=== PATIENT | female | born 1950 | race Caucasian/White ===

== ENCOUNTER → 2019-10-18 | Outpatient (CLI) | payer MEDICARE, OTHER ==
--- NOTE | 2019-10-18 13:43 | RADIOLOGY REPORT (SQ) ---
EXAM DESCRIPTION: MRI HEAD COMBO IMAGES COMPLETED DATE/TIME: 10/18/2019 1:31 pm REASON FOR STUDY: C34.31 MALIGNANT NEOPLASM OF LOWER LOBE, RIGHT BRONCHUS OR LUNG C34.31 MALIGNANT NEOPLASM OF LOWER LOBE, RIGHT BRONCHUS OR L COMPARISON: None. TECHNIQUE: Multiplanar imaging includes noncontrasted T1, T2, FLAIR, and Diffusion with ADC map seq uences. Contrast enhanced T1 images. Images stored on PACS. CONTRAST TYPE AND DOSE: 15 mL Dotarem. RENAL FUNCTION: Not indicated. ACR Type II contrast agent associated with few, if any, unconfounded cases of NSF LIMITATIONS: None. FINDINGS: ANATOMY: No anomalies. Normal vascular flow voids. Pituitary fossa normal. CSF SPACES: Normal size and contour. No hemorrhage. CEREBRUM: A few high-signal intensity lesions scattered throughout the white matter on FLAIR imaging with distribution suggesting chronic microvascular ischemic change. Sulci and gyri normal in size and contour. No evidence of hemorrhage, mass or extraaxial fluid collection. No enhancing lesions. POSTERIOR FOSSA: No signal alteration. No hemorrhage. No edema, masses or mass effect. Internal audit ory canals, cerebello-pontine angles, mastoids normal. DIFFUSION: Negative for acute or subacute infarction. ORBITS: No masses. Globes normal. PARANASAL SINUSES: No fluid levels. Mucosa normal. OTHER: No other significant finding. IMPRESSION: NO ENHANCING LESIONS. MINIMAL MICROVASCULAR ISCHEMIC CHANGE. OTHERWISE NORMAL STUDY. EVIDENCE OF ACUTE STROKE: NO. TECHNICAL DOCUMENTATION: JOB ID: [id number] 2010 [employer]- All Rights Reserved Reading location - IP/workstation name: [email or web address]
== END ==
LOC: RAD 12:12
PROVIDERS: ATTEND Internal Medicine Hematology & Oncology
DX: C34.31 Malignant neoplasm of lower lobe, right bronchus or lung (principal)
CPT/HCPCS: 82565; 70553; A9576

== ENCOUNTER → 2020-01-13 | Outpatient (CLI) | payer MEDICARE, OTHER ==
--- NOTE | 2020-01-13 20:43 | RADIOLOGY REPORT (SQ) ---
EXAM DESCRIPTION: MRI the brain with and without contrast Completed time and date: 01/13/2020 7:49 PM CLINICAL HISTORY: C34.31 MALIGNANT NEOPLASM OF LOWER LOBE, RIGHT BRONCHUS OR LUNG COMPARISON: 10/18/2019 TECHNIQUE: Multiplanar images of the brain were obtained with and without the administration of intravenous contrast FINDINGS: Ventricles and sulci are within normal limits for the patient's age. No evidence of midline shift or mass effect. No evidence of restricted diffusion to suggest acute area of infarct. Symmetric flow voids in the carotid siphons. Occasional foci of abnormal T2 signal consistent with mild microvascular ischemic changes. Other etiology including demyelinating disease not excluded but thought less likely. Symmetric flow voids in the carotid siphons. No evidence of intraparenchymal mass. No area of hemosiderin deposition noted. There is normal enhancement in the venous sinuses. No evidence of abnormal parenchymal enhancement. No evidence of mass. IMPRESSION: NO EVIDENCE OF ACUTE INTRACRANIAL PROCESS NO ABNORMAL ENHANCEMENT
== END ==
LOC: RAD 18:56
PROVIDERS: ATTEND Internal Medicine Hematology & Oncology
DX: C34.31 Malignant neoplasm of lower lobe, right bronchus or lung (principal); R42 Dizziness and giddiness
CPT/HCPCS: 82565; 70553; A9576

== ENCOUNTER → 2020-02-29 | Outpatient (CLI) | payer MEDICARE, OTHER ==
--- NOTE | 2020-02-29 17:46 | RADIOLOGY REPORT (SQ) ---
EXAM DESCRIPTION: VENOUS UNILATERAL UPPER IMAGES COMPLETED DATE/TIME: 02/29/2020 5:23 pm REASON FOR STUDY: RUE SWELLING I82.621 ACUTE EMBOLISM AND THROMBOSIS OF DEEP VEINS OF R UP COMPARISON: None. TECHNIQUE: Dynamic and static currie scale and color images acquired of the right arm venous system. S elected spectral images acquired with additional compression and augmentation maneuvers. The contrala teral subclavian vein and internal jugular vein were also imaged. Images stored on PACS. LIMITATIONS: None. FINDINGS: INTERNAL JUGULAR VEIN: Nonocclusive thrombus. SUBCLAVIAN VEIN: Nonocclusive thrombus. AXILLARY VEIN: Nonocclusive thrombus. BRACHIAL VEIN: Normal compression, augmentation. No visualized echogenic material on currie scale. No d efects on color images. BASILIC VEIN: Normal compression, augmentation. No visualized echogenic material on currie scale. No de fects on color images. CEPHALIC VEIN: Normal compression, augmentation. No visualized echogenic material on currie scale. No d efects on color images. OTHER: No other significant finding. CONTRALATERAL SUBCLAVIAN VEIN AND INTERNAL JUGULAR VEIN: Normal phasicity, compression and augmentation. No visualized echogenic material on currie scale. No de fects on color images. IMPRESSION: Positive acute vein thrombosis. TECHNICAL DOCUMENTATION: JOB ID: [id number] 2010 [employer]- All Rights Reserved Reading location - IP/workstation name: [email or web address]
== END ==
LOC: SP 16:35
PROVIDERS: ATTEND Nurse Practitioner
DX: I82.621 Acute embolism and thrombosis of deep veins of right upper extremity (principal)
CPT/HCPCS: 93971

== ENCOUNTER 2020-06-04 19:22 | Inpatient (IN) | payer MEDICARE, OTHER ==
--- NOTE | 2020-06-04 22:19 | ER Document Report ---
ED Respiratory Problem - General Chief Complaint: Shortness Of Breath Stated Complaint: RESPIRATORY DISTRESS Time Seen by Provider: 06/04/20 22:03 Primary Care Provider: BEULAH ALVAREZ MD [Primary Care Provider] - Follow up as needed Notes: Patient is a 61-year-old female with a history of stage IV lung cancer that com emergency department for chief complaint of worsening shortness of breath for the past 4 days. She states that tonight she got to where she could not catch her breath at all and she felt like she was going to pass out. She denies chest pain, dizziness, fever/chills, sore throat, change in sense of taste or smell but she does report an intermittent cough. She denies nausea or vomiting. She has recently completed chemotherapy and she is supposed to restart this in a few days but she is not currently on it. She states she is on Eliquis because she got a blood clot after they placed her right-sided port, the clot was reportedly in the arm and she had swelling of the arm that has now resolved. She is a former smoker, denies history of asthma or COPD. Remaining medical history reported to be hypertension and hyperlipidemia. She follows with Dr. Alvarez (oncology [facility]). TRAVEL OUTSIDE OF THE [place] IN LAST 30 DAYS: No - Related Data Allergies/Adverse Reactions: codeine Adverse Reaction (Intermediate, Verified 06/04/20 19:53) morphine Adverse Reaction (Intermediate, Verified 06/04/20 19:52) diazepam [From Valium] Adverse Reaction (Mild, Verified 06/04/20 19:53) Penicillins Adverse Reaction (Verified 06/04/20 19:51) Past Medical History - General Information source: Patient - Social History Smoking Status: Former Smoker Frequency of alcohol use: None Drug Abuse: None Lives with: Family Family History: Reviewed & Not Pertinent - Past Medical History Cardiac Medical History: Reports: Hx DVT, Hx Hypercholesterolemia, Hx Hypertension Malignancy Medical History: Reports: Hx Lung Cancer - stage 4 - Immunizations Immunizations up to date: Yes Hx Diphtheria, Pertussis, Tetanus Vaccination: Yes Review of Systems - Review of Systems Constitutional: See HPI EENT: No symptoms reported Cardiovascular: See HPI Respiratory: See HPI Gastrointestinal: No symptoms reported Genitourinary: No symptoms reported Female Genitourinary: No symptoms reported Musculoskeletal: No symptoms reported Skin: No symptoms reported Hematologic/Lymphatic: No symptoms reported Neurological/Psychological: No symptoms reported Physical Exam - Vital signs Vitals: Pulse Ox 95 06/04/20 19:44 - Notes Notes: GENERAL: Patient is in moderate distress although she is still alert, responsive, oriented HEAD: Normocephalic, atraumatic. EYES: Pupils equal, round, and reactive to light. Extraocular movements intact. ENT: Oral mucosa moist, tongue midline. Oropharynx unremarkable. Airway patent. NECK: Full range of motion. Supple. Trachea midline. No lymphadenopathy. LUNGS: Respiratory distress with tachypnea, labored breathing, Rales heard in both mid to lower lung king especially on the right. Occasional congested cough. HEART: Regular rate and rhythm. No murmur ABDOMEN: Soft, non-tender. Non-distended. EXTREMITIES: Moves all 4 extremities spontaneously. No edema, normal radial and dorsalis pedis pulses bilaterally. No cyanosis. BACK: no cervical, thoracic, lumbar midline tenderness. No saddle anesthesia, normal distal neurovascular exam. Moves all extremities in full range of motion. NEUROLOGICAL: Alert and oriented x3. Normal speech. Cranial nerves II through XII grossly intact. Strength 5/5 in all extremities. PSYCH: Slightly agitated SKIN: Warm, dry, normal turgor. No rashes or lesions noted. Course - Re-evaluation Re-evalutation: Patient initially 85% on room air with marked tachypnea, rales on examination especially on the right. Patient placed initially on 4 L nasal cannula and she increased to about 90 to 91% saturation but still having tachypnea at 35 and labored breathing. Patient placed on BiPAP. Shortly after that she had resolution of her respiratory distress, she is not hypoxic on reevaluation. 06/03/2020 CBC nonspecific, chemistry nonspecific, troponin is not elevated, BNP is borderline, venous blood gas unremarkable. EKG without acute findings. Chest x-ray shows bilateral pneumonia worse on the right, could be viral pneumonia, I do suspect COVID-19 given patient's worsening sick symptoms, nonproductive cough, and development of pneumonia over the past 4 days. She will be tested for this. Given dexamethasone, antibiotics. Patient became slightly agitated and was asking to take the BiPAP off, however she agreed to keep this on after she was given 0.5 mg of Ativan for anxiety. No significant change otherwise. I discussed the details with patient before this at length, she states understanding and agreement with admission. Discussed with Dr. Larsen, hospitalist, patient accepted to IMCU full admission. - Vital Signs Vital signs: Temp Pulse Resp BP Pulse Ox 37 H 127/87 H 98 06/04/20 23:30 06/04/20 23:30 06/04/20 23:30 - Laboratory Result Diagrams: 06/04/20 20:55 06/04/20 20:55 Laboratory results interpreted by me: 06/04/20 06/04/20 06/04/20 20:55 20:55 20:55 RDW 17.2 H Plt Count 129 L Seg Neuts % (Manual) 96 H Lymphocytes % (Manual) 2 L Monocytes % (Manual) 2 L Abs Lymphs (Manual) 0.1 L Sodium 134.1 L Est GFR (MDRD) Non-Af 58 L AST 37 H NT-Pro-B Natriuret Pep 477 H Total Protein 5.9 L Albumin 3.3 L - EKG Interpretation by Me Additional EKG results interpreted by me: EKG shows sinus rhythm at a rate of 90, QTc 441, normal axis, no T wave inv ersions or ST segment changes in consecutive leads Discharge - Discharge Clinical Impression: Hypoxia, Cough, Shortness of breath, Respiratory distress, Pneumonia, Person under investigation for COVID-19 Condition: Stable Disposition: ADMITTED INPATIENT Admitting Provider: Suzie (Hospitalist) Unit Admitted: [facility] Referrals: BEULAH ALVAREZ MD [Primary Care Provider] - Follow up as needed
[2020-06-04 22:42] LABS: ALBUMIN 3.3 g/dL (3.5-5.0); ALKALINE PHOSPHATASE 61 U/L (38-126); ANION GAP 6 (5-19); ASPARTATE AMINO TRANSFERASE 37 U/L (14-36); BILIRUBIN,DIRECT 0.1 mg/dL (0.0-0.4); BILIRUBIN,TOTAL 0.5 mg/dL (0.2-1.3); BLOOD UREA NITROGEN 17 mg/dL (7-20); CALCIUM 8.5 mg/dL (8.4-10.2); CARBON DIOXIDE 29 mmol/L (22-30); CHLORIDE 99 mmol/L (98-107); GLUCOSE 98 mg/dL (75-110); POTASSIUM 3.7 mmol/L (3.6-5.0); TOTAL PROTEIN 5.9 g/dL (6.3-8.2)
[2020-06-04 22:45] LABS: HEMATOCRIT 39.2 % (36.0-47.0); HEMOGLOBIN 13.4 g/dL (12.0-15.5); MEAN CORPUSCULAR HEMOGLOBIN 29.9 pg (27.0-33.4); MEAN CORPUSCULAR HGB CONC 34.1 g/dL (32.0-36.0); MEAN CORPUSCULAR VOLUME 88 fl (80-97); PLATELET COUNT 129 10^3/uL (150-450); RED BLOOD COUNT 4.48 10^6/uL (3.72-5.28); RED CELL DISTRIBUTION WIDTH 17.2 % (11.5-14.0); WHITE BLOOD COUNT 5.2 10^3/uL (4.0-10.5)
[2020-06-04 22:54] LABS: NT PRO BNP 477 pg/mL (<125)
[2020-06-04 22:57] LABS: TROPONIN I < 0.012 ng/mL
[2020-06-04 23:02] LABS: VENOUS BLOOD BASE EXCESS 0.1 mmol/L; VENOUS BLOOD HCO3 24.7 mmol/L (20-32); VENOUS BLOOD PCO2 39.8 mmHg (35-63); VENOUS BLOOD PH 7.41 (7.30-7.42)
--- NOTE | 2020-06-04 23:04 | RADIOLOGY REPORT (SQ) ---
CHEST X-RAY 1 VIEW on 06/04/2020 at 10:22 PM CLINICAL INDICATION: Shortness of breath, hypoxia, history of lung cancer COMPARISON: PET/CT from 10/15/2019 FINDINGS: There is elevation of the right hemidiaphragm. Right perihilar opacity may be related to posttreatment related changes, cannot exclude residual or recurrent tumor at this location. Right IJ Port-A-Cath tip is in the SVC. There are bilateral lower lung interstitial opacities worrisome for atypical pneumonia, differential diagnosis would include viral infections. Heart is within normal limits for size. IMPRESSION: Apparent developing bilateral lower lung interstitial opacities worrisome for pneumonia and differential diagnosis would include viral infections.
[2020-06-04 23:17] LABS: ABSOLUTE LYMPHOCYTES# (MANUAL) 0.1 10^3/uL (0.5-4.7); ABSOLUTE MONOCYTES # (MANUAL) 0.1 10^3/uL (0.1-1.4); BASOPHILS % (MANUAL) 0 % (0-2); EOSINOPHILS % (MANUAL) 0 % (0-6); LYMPHOCYTES % (MANUAL) 2 % (13-45); MONOCYTES % (MANUAL) 2 % (3-13); SEGMENTED NEUTROPHILS % (MAN) 96 % (42-78); TOTAL CELLS COUNTED 100
[2020-06-04 23:19] LABS: ANISOCYTOSIS 1+; PLATELET COMMENT ADEQUATE; POLYCHROMASIA SLIGHT
[2020-06-04] MEDS ORDERED: CEFTRIAXONE 1 GM/D5W RTU 1 GM/50 ML RTUPB IV ONE (23:27)
[2020-06-04] MEDS ORDERED: DEXAMETHASONE SOD PHOS INJ 10 MG/1 ML VIAL IV ONE (23:27)
[2020-06-04] MEDS ORDERED: AZITHROMYCIN INJ 500 MG VIAL IV ONE (23:27)
[2020-06-04] MEDS ORDERED: LORAZEPAM INJ 2 MG/1 ML VIAL IV ONE (23:31)
[2020-06-05] MEDS ORDERED: VANCOMYCIN HCL 0 MG in DEXTROSE 5%-WATER 250 ML IV NR (00:30)
--- NOTE | 2020-06-05 00:53 | PDOC H&P ---
History of Present Illness Admission Date/PCP: BEULAH ALVAREZ MD History of Present Illness: RADHA GAUTAM is a 69 year old female with a history 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 She has been on high-dose prednisone and is being weaned at this point, currently down to 40 mg a day. She was hoping to get wean down further off of steroids so she can restart chemo. She is also received 30 radiation treatments. Her oncologist is in [place], a Dr. Alvarez. She does not know the name of the chemo drugs she was on. She said she was in the hospital about a month ago with a pneumonia and has not been on chemo since then. Her was admitted to the hospital on 17 May with a stroke and was sent to [facility]. He has since been in acute rehab. She has been to that hospital every day and to acute rehab to visit him. She says that she has followed all the appropriate precautions. She said that she is always had some trouble breathing but she feels like it got worse the day after [place]. She says that she typically gets a little short of breath when she does something simple such as [place], but it has gotten worse and now she is even short of breath at rest. She does not think she has been running a fever. She always has a little bit of a dry cough and it does not seem to be in much different than usual. She is not on oxygen at home. She came in here hypoxic and short of breath and had to be put on BiPAP. She got a dose of dexamethasone and some Rocephin and Zithromax. She has not been tested for coronavirus outside the hospital but the test was ordered while she was in the ER. Past Medical History Cardiac Medical History: Reports: DVT, Hyperlipidema, Hypertension Malignancy Medical History: Reports: Lung Cancer - stage 4 Social History Lives with: Family Smoking Status: Former Smoker Family History Family History: Reviewed & Not Pertinent, CAD, Hyperlipidemia, Hypertension Parental Family History Reviewed: Yes Children Family History Reviewed: Yes Sibling(s) Family History Reviewed.: Yes Medication/Allergy Allergies/Adverse Reactions: codeine Adverse Reaction (Intermediate, Verified 06/04/20 19:53) morphine Adverse Reaction (Intermediate, Verified 06/04/20 19:52) diazepam [From Valium] Adverse Reaction (Mild, Verified 06/04/20 19:53) Penicillins Adverse Reaction (Verified 06/04/20 19:51) Review of Systems All systems: reviewed and no additional remarkable complaints except as stated - All systems were reviewed and were negative except as noted in the HPI Physical Exam Vital Signs: Temp Pulse Resp BP Pulse Ox 37 H 127/87 H 98 06/04/20 23:30 06/04/20 23:30 06/04/20 23:30 Intake & Output 06/03/20 06/04/20 06/05/20 06:59 06:59 06:59 Weight 72.575 kg General appearance: PRESENT: cooperative, disheveled, mild distress Head exam: PRESENT: atraumatic, normocephalic Eye exam: PRESENT: EOMI, PERRLA. ABSENT: conjunctival injection, nystagmus, scleral icterus Ear exam: PRESENT: normal external ear exam Respiratory exam: PRESENT: crackles - Bibasilar, symmetrical, tachypnea, unlabored. ABSENT: accessory muscle use, chest wall tenderness, prolonged expiratory phas, rhonchi, wheezes Cardiovascular exam: PRESENT: +S1, +S2, tachycardia Pulses: PRESENT: normal carotid pulses Vascular exam: PRESENT: normal capillary refill GI/Abdominal exam: PRESENT: normal bowel sounds, soft. ABSENT: distended, guarding, rebound, tenderness Extremities exam: ABSENT: clubbing, pedal edema Musculoskeletal exam: PRESENT: normal inspection. ABSENT: deformity Neurological exam: PRESENT: alert, awake, oriented to person, oriented to place, oriented to time, oriented to situation, CN II-XII grossly intact. ABSENT: motor sensory deficit Psychiatric exam: PRESENT: flat affect Skin exam: PRESENT: dry, warm Results Laboratory Results: 06/04/20 20:55 06/04/20 20:55 06/04/20 06/04/20 06/04/20 20:55 20:55 22:50 WBC 5.2 RBC 4.48 Hgb 13.4 Hct 39.2 MCV 88 MCH 29.9 MCHC 34.1 RDW 17.2 H Plt Count 129 L Seg Neutrophils % Not Reportable VBG pH 7.41 VBG pCO2 39.8 VBG HCO3 24.7 VBG Base Excess 0.1 Sodium 134.1 L Potassium 3.7 Chloride 99 Carbon Dioxide 29 Anion Gap 6 BUN 17 Creatinine 0.95 Est GFR ( Amer) > 60 Glucose 98 Calcium 8.5 Total Bilirubin 0.5 AST 37 H Alkaline Phosphatase 61 Total Protein 5.9 L Albumin 3.3 L 06/04/20 20:55 Troponin I < 0.012 NT-Pro-B Natriuret Pep 477 H Impressions: Chest X-Ray 06/04/20 22:15 IMPRESSION: Apparent developing bilateral lower lung interstitial opacities worrisome for pneumonia and differential diagnosis would include viral infections. Assessment and Plan - Diagnosis (1) Acute respiratory failure with hypoxia Is this a current diagnosis for this admission?: Yes (2) Person under investigation for COVID-19 Is this a current diagnosis for this admission?: Yes (3) Bilateral pneumonia Qualifiers: Pneumonia type: due to unspecified organism Lung location: lower lobe of lung Qualified Code(s): J18.9 - Pneumonia, unspecified organism Is this a current diagnosis for this admission?: Yes (4) Metastatic lung cancer (metastasis from lung to other site) Qualifiers: Laterality: unspecified laterality Qualified Code(s): C34.90 - Malignant neoplasm of unspecified part of unspecified bronchus or lung Is this a current diagnosis for this admission?: Yes (5) History of DVT (deep vein thrombosis) Is this a current diagnosis for this admission?: Yes - Plan Summary Summary: There are a few different possibilities here. I think the 3 most likely causes for her current situation are either COVID-19, bacterial pneumonia in the setting of an immunosuppressed patient, or a toxic effect from her chemotherapy that surfaced as her steroids were weaned. She got a dose of dexamethasone in the ER, but the the doses that were giving for COVID-19 are equivalent to about 40 mg of prednisone a day, which is what she was on at home. Therefore, I have given her some higher dose Solu-Medrol instead. I am covering her with broad- spectrum antibiotics vancomycin and cefepime. Blood cultures are pending. We are testing her for COVID-19, and if she test positive we will start her on remdesivir. We will continue her Eliquis that she was using for her upper extremity DVT after her port was placed. - Time Time Spent with patient: 35 or more minutes Anticipated Discharge Disposition: Unknown Anticipated Discharge Timeframe: Unknown - Inpatient Certification Based on my medical assessment, after consideration of the patient's comorbidities, presenting symptoms, or acuity I expect that the services needed warrant INPATIENT care.: Yes I certify that my determination is in accordance with my understanding of Medicare's requirements for reasonable and necessary INPATIENT services [42 CFR 412.3e].: Yes Medical Necessity: Significant Comorbidiites Make Outpatient Treatment Too Risky, Need Close Monitoring Due to Risk of Patient Decompensation, Need For Continuous Telemetry Monitoring, Need for Nebulizer Therapy and Monitoring of Response, Need for IV Antibiotics, Risk of Complication if Not Cared For in Hospital
[2020-06-05] MEDS ORDERED: DEXAMETHASONE SOD PHOSPHATE INJ 4 MG/1 ML VIAL ONE (01:09)
[2020-06-05 02:35] LABS: A TYPE INFLUENZA AG NEGATIVE (NEGATIVE); B INFLUENZA AG NEGATIVE (NEGATIVE)
[2020-06-05] MEDS ORDERED: VANCOMYCIN HCL INJ 1000 MG VIAL IV PRN (02:51)
[2020-06-05] MEDS ORDERED: VANCOMYCIN HCL 750 MG in DEXTROSE 5%-WATER 250 ML IV ONE (03:00)
[2020-06-05] MEDS: POTASSI CL 20 MEQ/D5-1/2NS 1L 1,000 ML IV PRN ×2 (04:37→20:06)
[2020-06-05] MEDS: METHYLPREDNISOLONE INJ 40 MG/1 ML SDV IV SCH ×3 (06:23→21:46)
[2020-06-05 09:20] LABS: ALKALINE PHOSPHATASE 50 U/L (38-126); ANION GAP 5 (5-19); ASPARTATE AMINO TRANSFERASE 36 U/L (14-36); BILIRUBIN,DIRECT 0.2 mg/dL (0.0-0.4); BILIRUBIN,TOTAL 0.5 mg/dL (0.2-1.3); BLOOD UREA NITROGEN 18 mg/dL (7-20); CARBON DIOXIDE 27 mmol/L (22-30); CHLORIDE 100 mmol/L (98-107); GLUCOSE 146 mg/dL (75-110); POTASSIUM 4.3 mmol/L (3.6-5.0); TOTAL PROTEIN 5.3 g/dL (6.3-8.2)
[2020-06-05] MEDS: APIXABAN 5 MG TABLET PO SCH ×2 (09:40→17:34)
--- NOTE | 2020-06-05 09:59 | EKG REPORT ---
SEVERITY:- ABNORMAL ECG - SINUS RHYTHM PROBABLE LEFT ATRIAL ABNORMALITY PROBABLE LEFT VENTRICULAR HYPERTROPHY : Confirmed by: Tahir Escobar MD 05-Jun-2020 09:59:08
[2020-06-05] MEDS ORDERED: CEFEPIME 2 GM/D5W RTU 2 GM/50 ML RTUPB IV SCH (10:00)
[2020-06-05] MEDS ORDERED: ALBUTEROL SULFATE HFA (90 MCG/PUFF) 8 GM MDI (1 MDI/ER DISP) IH PRN (16:52)
[2020-06-05] MEDS ORDERED: ALBUTEROL SULFATE HFA (90 MCG/PUFF) 8 GM MDI IH PRN (17:10)
[2020-06-05] MEDS: VANCOMYCIN HCL 1,250 MG in DEXTROSE 5%-WATER 250 ML IV SCH (17:34)
[2020-06-05] MEDS: DOCUSATE SODIUM 100 MG CAPSULE PO SCH (17:34)
[2020-06-05] MEDS: CEFEPIME HCL 2 GM in DEXTROSE 5%-WATER 50 ML IV SCH (21:46)
[2020-06-06] MEDS: METHYLPREDNISOLONE INJ 40 MG/1 ML SDV IV SCH (05:26)
[2020-06-06 06:57] LABS: HEMATOCRIT 36.5 % (36.0-47.0); HEMOGLOBIN 12.5 g/dL (12.0-15.5); MEAN CORPUSCULAR HEMOGLOBIN 29.9 pg (27.0-33.4); MEAN CORPUSCULAR HGB CONC 34.2 g/dL (32.0-36.0); MEAN CORPUSCULAR VOLUME 87 fl (80-97); PLATELET COUNT 126 10^3/uL (150-450); RED BLOOD COUNT 4.19 10^6/uL (3.72-5.28); RED CELL DISTRIBUTION WIDTH 17.8 % (11.5-14.0); WHITE BLOOD COUNT 8.6 10^3/uL (4.0-10.5)
[2020-06-06 07:11] LABS: ALBUMIN 3.1 g/dL (3.5-5.0); ALKALINE PHOSPHATASE 53 U/L (38-126); ANION GAP 7 (5-19); ASPARTATE AMINO TRANSFERASE 32 U/L (14-36); BILIRUBIN,DIRECT 0.2 mg/dL (0.0-0.4); BILIRUBIN,TOTAL 0.6 mg/dL (0.2-1.3); BLOOD UREA NITROGEN 16 mg/dL (7-20); CALCIUM 8.4 mg/dL (8.4-10.2); CARBON DIOXIDE 26 mmol/L (22-30); CHLORIDE 103 mmol/L (98-107); GLUCOSE 141 mg/dL (75-110); POTASSIUM 4.5 mmol/L (3.6-5.0); TOTAL PROTEIN 5.4 g/dL (6.3-8.2)
[2020-06-06 07:55] LABS: ABSOLUTE LYMPHOCYTES# (MANUAL) 0.2 10^3/uL (0.5-4.7); ABSOLUTE MONOCYTES # (MANUAL) 0.1 10^3/uL (0.1-1.4); ANISOCYTOSIS 1+; BAND NEUTROPHILS % (MANUAL) 2 % (3-5); BASOPHILS % (MANUAL) 0 % (0-2); EOSINOPHILS % (MANUAL) 0 % (0-6); LYMPHOCYTES % (MANUAL) 2 % (13-45); MONOCYTES % (MANUAL) 1 % (3-13); OVALOCYTES 1+; PLATELET COMMENT DECREASED; POIKILOCYTOSIS 1+; SEGMENTED NEUTROPHILS % (MAN) 95 % (42-78); TOTAL CELLS COUNTED 100
[2020-06-06 07:56] LABS: TEAR DROP CELLS 1+
[2020-06-06] MEDS: AMLODIPINE BESYLATE 5 MG TABLET PO SCH (10:48)
[2020-06-06] MEDS: CEFEPIME HCL 2 GM in DEXTROSE 5%-WATER 50 ML IV SCH ×2 (10:48→21:53)
[2020-06-06] MEDS: ESCITALOPRAM OXALATE 10 MG TABLET PO SCH (10:48)
[2020-06-06] MEDS: DEXAMETHASONE SOD PHOSPHATE INJ 4 MG/1 ML VIAL IV SCH ×2 (10:48→21:53)
[2020-06-06] MEDS: APIXABAN 5 MG TABLET PO SCH ×2 (10:48→17:31)
[2020-06-06] MEDS: DOCUSATE SODIUM 100 MG CAPSULE PO SCH ×2 (10:48→17:31)
[2020-06-06] MEDS: ZINC SULFATE 220 MG CAPSULE PO SCH (10:48)
[2020-06-06] MEDS: ASCORBIC ACID 500 MG TABLET PO SCH ×2 (10:48→17:31)
[2020-06-06] MEDS: CHOLECALCIFEROL (D3) 1,000 UNIT (25 MCG) TABLET PO SCH (10:48)
[2020-06-06] MEDS ORDERED: REMDESIVIR 200 MG in NORMAL SALINE 250 ML IV ONE (12:00)
--- NOTE | 2020-06-06 14:39 | PDOC PROGRESS REPORT ---
Subjective Date:: 06/06/20 Subjective:: Patient having some shortness of breath today. Was requesting a bedside commode to help her ambulate any distances to void. I did discuss her situation with her that she has tested positive for coronavirus infection. She will inform her family members to get tested. Reason For Visit: ACUTE RESPIRATORY FAILURE BILATERAL PNUEMONIA,PUI Physical Exam Vital Signs: Temp Pulse Resp BP Pulse Ox 97.6 F 83 26 H 125/63 95 06/06/20 12:00 06/06/20 12:00 06/06/20 12:00 06/06/20 12:00 06/06/20 12:00 Intake & Output 06/05/20 06/06/20 06/07/20 06:59 06:59 06:59 Intake Total 300 1394 250 Balance 300 1394 250 Weight 72.5 kg 72.5 kg General appearance: PRESENT: cooperative, hard of hearing, mild distress. ABSENT: disheveled, thin Neck exam: ABSENT: JVD Respiratory exam: PRESENT: crackles - bilateral, symmetrical, tachypnea, unlabored. ABSENT: accessory muscle use, retraction, wheezes Cardiovascular exam: PRESENT: RRR, +S1, +S2. ABSENT: tachycardia GI/Abdominal exam: PRESENT: soft. ABSENT: rebound, rigid, tenderness Neurological exam: PRESENT: alert, awake, oriented to person, oriented to place, oriented to time, oriented to situation Results Laboratory Results: 06/06/20 05:52 06/06/20 05:52 06/06/20 06/06/20 06/06/20 05:52 05:52 11:39 WBC 8.6 RBC 4.19 Hgb 12.5 Hct 36.5 MCV 87 MCH 29.9 MCHC 34.2 RDW 17.8 H Plt Count 126 L Seg Neutrophils % Not Reportable Sodium 136.2 L Potassium 4.5 Chloride 103 Carbon Dioxide 26 Anion Gap 7 BUN 16 Creatinine 0.88 Est GFR ( Amer) > 60 Glucose 141 H Calcium 8.4 Total Bilirubin 0.6 AST 32 Alkaline Phosphatase 53 Total Protein 5.4 L Albumin 3.1 L Blood Type A NEGATIVE Antibody Screen NEGATIVE 06/04/20 20:55 Troponin I < 0.012 NT-Pro-B Natriuret Pep 477 H Impressions: Chest X-Ray 06/04/20 22:15 IMPRESSION: Apparent developing bilateral lower lung interstitial opacities worrisome for pneumonia and differential diagnosis would include viral infections. Assessment and Plan - Diagnosis (1) Pneumonia due to COVID-19 virus Is this a current diagnosis for this admission?: Yes Plan: Unfortunately patient has tested positive for coronavirus. She will be initiated on remdesivir. Plasma will be given. Dexamethasone We will continue broad-spectrum IV antibiotics for today but will likely discontinue tomorrow. Unfortunately, patient's stage IV metastatic lung cancer and elderly age are poor prognostic indicators for patient's outcome. Discussed with patient's sister per patient's request (2) Acute respiratory failure with hypoxia Is this a current diagnosis for this admission?: Yes Plan: Due to COVID-19. Quite hypoxic. Tried her on Oxymizer but could not maintain her sats so we will try her on a high flow nasal cannula. (3) Stage 4 lung cancer Qualifiers: Laterality: unspecified laterality Qualified Code(s): C34.90 - Malignant neoplasm of unspecified part of unspecified bronchus or lung Is this a current diagnosis for this admission?: Yes Plan: Metastatic lung cancer with metastasis to liver and bone. Follows with oncologist in [place] Dr. Viera. Last chemo was 3 weeks prior to admission. Continue pain regimen for treatment of cancer related pain Bowel regimen (4) History of DVT (deep vein thrombosis) Is this a current diagnosis for this admission?: Yes Plan: Upper extremity DVT due to Port-A-Cath. Continue Eliquis. (5) Thrombocytopenia Is this a current diagnosis for this admission?: Yes Plan: Seems to be stable. Etiology and chronicity unknown. I wonder if it is due to her liver metastasis. Check PTT and INR - Time Time Spent with patient: 25-34 minutes Anticipated Discharge Disposition: Home, Self Care Anticipated Discharge Timeframe: unknown
[2020-06-06] MEDS: ACETAMINOPHEN 325 MG TABLET PO PRN (19:47)
[2020-06-06] MEDS: VANCOMYCIN HCL 1,250 MG in DEXTROSE 5%-WATER 250 ML IV SCH (20:39)
[2020-06-06 21:48] LABS: HEMATOCRIT 33.2 % (36.0-47.0); HEMOGLOBIN 11.5 g/dL (12.0-15.5); MEAN CORPUSCULAR HEMOGLOBIN 29.8 pg (27.0-33.4); MEAN CORPUSCULAR HGB CONC 34.5 g/dL (32.0-36.0); MEAN CORPUSCULAR VOLUME 87 fl (80-97); PLATELET COUNT 113 10^3/uL (150-450); RED BLOOD COUNT 3.84 10^6/uL (3.72-5.28); RED CELL DISTRIBUTION WIDTH 17.3 % (11.5-14.0); WHITE BLOOD COUNT 8.3 10^3/uL (4.0-10.5)
[2020-06-06] MEDS: ONDANSETRON HCL INJ/PF 4 MG/2 ML SDV IV PRN (22:10)
[2020-06-07 06:12] LABS: INTERNATIONAL RATION (INR) 1.14; PROTHROMBIN TIME 14.8 SEC (11.4-15.4)
[2020-06-07 06:13] LABS: PARTIAL THROMBOPLASTIN TIME 27.8 SEC (23.5-35.8)
[2020-06-07 06:30] LABS: HEMATOCRIT 36.6 % (36.0-47.0); HEMOGLOBIN 12.6 g/dL (12.0-15.5); MEAN CORPUSCULAR HEMOGLOBIN 30.1 pg (27.0-33.4); MEAN CORPUSCULAR HGB CONC 34.4 g/dL (32.0-36.0); MEAN CORPUSCULAR VOLUME 87 fl (80-97); PLATELET COUNT 115 10^3/uL (150-450); RED BLOOD COUNT 4.19 10^6/uL (3.72-5.28); RED CELL DISTRIBUTION WIDTH 17.3 % (11.5-14.0); WHITE BLOOD COUNT 7.3 10^3/uL (4.0-10.5)
[2020-06-07 06:33] LABS: ALBUMIN 3.3 g/dL (3.5-5.0); ALKALINE PHOSPHATASE 63 U/L (38-126); ANION GAP 9 (5-19); ASPARTATE AMINO TRANSFERASE 37 U/L (14-36); BILIRUBIN,DIRECT 0.3 mg/dL (0.0-0.4); BILIRUBIN,TOTAL 0.7 mg/dL (0.2-1.3); BLOOD UREA NITROGEN 19 mg/dL (7-20); CALCIUM 8.6 mg/dL (8.4-10.2); CARBON DIOXIDE 26 mmol/L (22-30); CHLORIDE 101 mmol/L (98-107); GLUCOSE 125 mg/dL (75-110); POTASSIUM 4.3 mmol/L (3.6-5.0); TOTAL PROTEIN 5.7 g/dL (6.3-8.2)
[2020-06-07 07:12] LABS: ABSOLUTE LYMPHOCYTES# (MANUAL) 0.2 10^3/uL (0.5-4.7); ABSOLUTE MONOCYTES # (MANUAL) 0.2 10^3/uL (0.1-1.4); BAND NEUTROPHILS % (MANUAL) 1 % (3-5); BASOPHILS % (MANUAL) 0 % (0-2); EOSINOPHILS % (MANUAL) 0 % (0-6); LYMPHOCYTES % (MANUAL) 2 % (13-45); MONOCYTES % (MANUAL) 3 % (3-13); SEGMENTED NEUTROPHILS % (MAN) 93 % (42-78); TOTAL CELLS COUNTED 100
[2020-06-07 07:14] LABS: ANISOCYTOSIS 1+; OVALOCYTES SLIGHT; PLATELET COMMENT DECREASED; POIKILOCYTOSIS SLIGHT; TEAR DROP CELLS SLIGHT; TOXIC GRANULATION 1+
[2020-06-07] MEDS: CEFEPIME HCL 2 GM in DEXTROSE 5%-WATER 50 ML IV SCH ×2 (10:25→21:00)
[2020-06-07] MEDS: AMLODIPINE BESYLATE 5 MG TABLET PO SCH (10:27)
[2020-06-07] MEDS: ZINC SULFATE 220 MG CAPSULE PO SCH (10:27)
[2020-06-07] MEDS: APIXABAN 5 MG TABLET PO SCH ×2 (10:27→18:17)
[2020-06-07] MEDS: ASCORBIC ACID 500 MG TABLET PO SCH ×2 (10:28→18:17)
[2020-06-07] MEDS: ESCITALOPRAM OXALATE 10 MG TABLET PO SCH (10:28)
[2020-06-07] MEDS: CHOLECALCIFEROL (D3) 1,000 UNIT (25 MCG) TABLET PO SCH (10:28)
[2020-06-07] MEDS: DOCUSATE SODIUM 100 MG CAPSULE PO SCH ×3 (10:28→18:17)
[2020-06-07] MEDS: DEXAMETHASONE SOD PHOSPHATE INJ 4 MG/1 ML VIAL IV SCH ×2 (10:28→21:00)
[2020-06-07] MEDS: REMDESIVIR 100 MG in NORMAL SALINE 250 ML IV SCH (11:15)
--- NOTE | 2020-06-07 15:09 | PDOC PROGRESS REPORT ---
Subjective Date:: 06/07/20 Subjective:: Patient reports feeling better. She is breathing comfortably. She states she i s less dyspneic when she ambulates to the bedside commode. She is on high flow nasal cannula at this point. Denies any pain during encounter this morning. Reason For Visit: ACUTE RESPIRATORY FAILURE BILATERAL PNUEMONIA,PUI Physical Exam Vital Signs: Temp Pulse Resp BP Pulse Ox 98.3 F 101 H 21 H 156/74 H 96 06/07/20 11:14 06/07/20 11:14 06/07/20 12:00 06/07/20 11:14 06/07/20 12:00 Intake & Output 06/06/20 06/07/20 06/08/20 06:59 06:59 06:59 Intake Total 1394 1998 250 Balance 1394 1998 250 Weight 72.5 kg 72.9 kg General appearance: PRESENT: no acute distress, cooperative Neck exam: ABSENT: JVD Respiratory exam: PRESENT: crackles, symmetrical, unlabored. ABSENT: accessory muscle use, retraction, tachypnea, wheezes Cardiovascular exam: PRESENT: RRR, +S1, +S2. ABSENT: tachycardia GI/Abdominal exam: PRESENT: soft. ABSENT: rebound, rigid, tenderness Neurological exam: PRESENT: alert, awake, oriented to person, oriented to place, oriented to time, oriented to situation Psychiatric exam: ABSENT: agitated, anxious Results Laboratory Results: 06/07/20 05:16 06/07/20 05:16 06/06/20 06/06/20 06/07/20 11:39 21:23 05:16 WBC 8.3 7.3 RBC 3.84 4.19 Hgb 11.5 L 12.6 Hct 33.2 L 36.6 MCV 87 87 MCH 29.8 30.1 MCHC 34.5 34.4 RDW 17.3 H 17.3 H Plt Count 113 L 115 L Seg Neutrophils % Not Reportable Sodium Potassium Chloride Carbon Dioxide Anion Gap BUN Creatinine Est GFR ( Amer) Glucose Calcium Total Bilirubin AST Alkaline Phosphatase Total Protein Albumin Blood Type A NEGATIVE Antibody Screen NEGATIVE 06/07/20 05:16 WBC RBC Hgb Hct MCV MCH MCHC RDW Plt Count Seg Neutrophils % Sodium 136.2 L Potassium 4.3 Chloride 101 Carbon Dioxide 26 Anion Gap 9 BUN 19 Creatinine 0.81 Est GFR ( Amer) > 60 Glucose 125 H Calcium 8.6 Total Bilirubin 0.7 AST 37 H Alkaline Phosphatase 63 Total Protein 5.7 L Albumin 3.3 L Blood Type Antibody Screen 06/04/20 20:55 Troponin I < 0.012 NT-Pro-B Natriuret Pep 477 H Impressions: Chest X-Ray 06/04/20 22:15 IMPRESSION: Apparent developing bilateral lower lung interstitial opacities worrisome for pneumonia and differential diagnosis would include viral infections. Assessment and Plan - Diagnosis (1) Pneumonia due to COVID-19 virus Is this a current diagnosis for this admission?: Yes Plan: Remdesivir day 2 s/p covalesent plasma Dexamethasone day 3 We will continue broad-spectrum IV antibiotics for 1 or 2 more days just in case of any underlying comorbid bacterial pneumonia. Unfortunately, patient's stage IV metastatic lung cancer and elderly age are poor prognostic indicators for patient's outcome. (2) Acute respiratory failure with hypoxia Is this a current diagnosis for this admission?: Yes Plan: Due to COVID-19. Quite hypoxic. HFNC 50L/86% (3) Stage 4 lung cancer Qualifiers: Laterality: unspecified laterality Qualified Code(s): C34.90 - Malignant neoplasm of unspecified part of unspecified bronchus or lung Is this a current diagnosis for this admission?: Yes Plan: Metastatic lung cancer with metastasis to liver and bone. Follows with oncologist in [place] Dr. Viera. Last chemo was 3 weeks prior to admission. Continue pain regimen for treatment of cancer related pain Bowel regimen (4) History of DVT (deep vein thrombosis) Is this a current diagnosis for this admission?: Yes Plan: Upper extremity DVT due to Port-A-Cath. Continue Eliquis. (5) Thrombocytopenia Is this a current diagnosis for this admission?: Yes Plan: Seems to be stable. Etiology and chronicity unknown. INR and PTT are adequate. - Time Time Spent with patient: 15-24 minutes Anticipated Discharge Disposition: Home with Home Health Anticipated Discharge Timeframe: 2wks
[2020-06-07] MEDS: VANCOMYCIN HCL 1,250 MG in DEXTROSE 5%-WATER 250 ML IV SCH (18:17)
[2020-06-07 18:49] LABS: VANCOMYCIN,TROUGH 7.2 ug/mL (5.0-20.0)
[2020-06-07] MEDS: HYDROCODONE/ACETAMINOPHEN 5-325 MG TABLET PO PRN (20:51)
[2020-06-07] MEDS: ALPRAZOLAM 0.25 MG TABLET PO PRN (20:51)
[2020-06-07] MEDS: ONDANSETRON HCL INJ/PF 4 MG/2 ML SDV IV PRN (20:59)
[2020-06-08] MEDS: VANCOMYCIN HCL 1,000 MG in DEXTROSE 5%-WATER 250 ML IV SCH ×2 (05:13→17:54)
[2020-06-08] MEDS: ACETAMINOPHEN 325 MG TABLET PO PRN (05:56)
[2020-06-08] MEDS ORDERED: NORMAL SALINE 1000 ML 1,000 ML IV PRN (07:41)
[2020-06-08] MEDS: CEFEPIME HCL 2 GM in DEXTROSE 5%-WATER 50 ML IV SCH ×2 (10:17→21:23)
[2020-06-08] MEDS: DEXAMETHASONE SOD PHOSPHATE INJ 4 MG/1 ML VIAL IV SCH ×2 (10:18→21:23)
[2020-06-08] MEDS: ZINC SULFATE 220 MG CAPSULE PO SCH (10:18)
[2020-06-08] MEDS: ASCORBIC ACID 500 MG TABLET PO SCH ×2 (10:18→17:54)
[2020-06-08] MEDS: AMLODIPINE BESYLATE 5 MG TABLET PO SCH (10:18)
[2020-06-08] MEDS: APIXABAN 5 MG TABLET PO SCH ×2 (10:18→17:55)
[2020-06-08] MEDS: CHOLECALCIFEROL (D3) 1,000 UNIT (25 MCG) TABLET PO SCH (10:18)
[2020-06-08] MEDS: ESCITALOPRAM OXALATE 10 MG TABLET PO SCH (10:18)
[2020-06-08] MEDS: DOCUSATE SODIUM 100 MG CAPSULE PO SCH ×3 (10:36→18:54)
[2020-06-08] MEDS: ALPRAZOLAM 0.25 MG TABLET PO PRN ×2 (10:42→18:45)
--- NOTE | 2020-06-08 12:01 | PDOC PROGRESS REPORT ---
Subjective Date:: 06/08/20 Subjective:: Desaturated on high flow nasal cannula today. Feels quite short of breath. Als o getting very sad and often tearing up about her current medical condition. Otherwise denies pain. She is able to eat. Reason For Visit: ACUTE RESPIRATORY FAILURE BILATERAL PNUEMONIA,PUI Physical Exam Vital Signs: Temp Pulse Resp BP Pulse Ox 97.7 F 80 28 H 104/58 L 89 L 06/08/20 07:24 06/08/20 07:24 06/08/20 09:02 06/08/20 07:24 06/08/20 09:02 Intake & Output 06/07/20 06/08/20 06/09/20 06:59 06:59 06:59 Intake Total 1998 850 Output Total 0 Balance 1998 850 Weight 72.9 kg 70.9 kg General appearance: PRESENT: no acute distress, cooperative Neck exam: ABSENT: JVD Respiratory exam: PRESENT: crackles, symmetrical, tachypnea, unlabored. ABSENT: wheezes Cardiovascular exam: PRESENT: RRR, +S1, +S2. ABSENT: tachycardia GI/Abdominal exam: PRESENT: soft. ABSENT: rebound, rigid, tenderness Neurological exam: PRESENT: alert, awake, oriented to person, oriented to place, oriented to time, oriented to situation Psychiatric exam: ABSENT: agitated, anxious Focused psych exam: ABSENT: pressured speech Results Laboratory Results: 06/07/20 05:16 06/07/20 05:16 06/04/20 20:55 Troponin I < 0.012 NT-Pro-B Natriuret Pep 477 H Impressions: Chest X-Ray 06/04/20 22:15 IMPRESSION: Apparent developing bilateral lower lung interstitial opacities worrisome for pneumonia and differential diagnosis would include viral infections. Assessment and Plan - Diagnosis (1) Pneumonia due to COVID-19 virus Is this a current diagnosis for this admission?: Yes Plan: Remdesivir day 3 s/p covalesent plasma Dexamethasone day 4 We will continue broad-spectrum IV antibiotics for 1 more day just in case of any underlying comorbid bacterial pneumonia. Unfortunately, patient's stage IV metastatic lung cancer and elderly age are poor prognostic indicators for patient's outcome. (2) Acute respiratory failure with hypoxia Is this a current diagnosis for this admission?: Yes Plan: Due to COVID-19. Hypoxia is worsening. Had to put her on a nonrebreather on top of her HFNC 90%/50L to allow hypoxia improved. If hypoxia persists convert to CPAP. (3) Stage 4 lung cancer Qualifiers: Laterality: unspecified laterality Qualified Code(s): C34.90 - Malignant neoplasm of unspecified part of unspecified bronchus or lung Is this a current diagnosis for this admission?: Yes Plan: Metastatic lung cancer with metastasis to liver and bone. Follows with oncologist in [place] Dr. Viera. Last chemo was 3 weeks prior to admission. Continue pain regimen for treatment of cancer related pain Bowel regimen (4) History of DVT (deep vein thrombosis) Is this a current diagnosis for this admission?: Yes Plan: Upper extremity DVT due to Port-A-Cath. Continue Eliquis. (5) Thrombocytopenia Is this a current diagnosis for this admission?: Yes Plan: Seems to be stable. Etiology and chronicity unknown. INR and PTT are adequate. (6) Anxiety and depression Is this a current diagnosis for this admission?: Yes Plan: c/w xanax and escitalopram - Time Time Spent with patient: 25-34 minutes Anticipated Discharge Disposition: Home, Self Care Anticipated Discharge Timeframe: unknown
[2020-06-08] MEDS: REMDESIVIR 100 MG in NORMAL SALINE 250 ML IV SCH (12:44)
--- NOTE | 2020-06-08 13:04 | ADVANCED CARE ---
- Diagnosis (1) Pneumonia due to COVID-19 virus Diagnosis Current: Yes (2) Acute respiratory failure with hypoxia Diagnosis Current: Yes (3) Stage 4 lung cancer Diagnosis Current: Yes Resuscitation Status: Full Code Discussion: Follow-up goals of care conversation as well as CODE STATUS conversation with patient this morning. We discussed elaborately. She wanted to meet to discuss with his daughter as well so I did speak to her daughter this afternoon via phone and explained her condition and worsening hypoxia. We talked about CODE STATUS and advanced goals of care. She will deliberate further with her mother. In the meantime we will continue full treatment and full code. Time Spent: 25mins
[2020-06-09] MEDS: VANCOMYCIN HCL 1,000 MG in DEXTROSE 5%-WATER 250 ML IV SCH (05:50)
[2020-06-09 06:38] LABS: C-REACTIVE PROTEIN 20.2 mg/L (<10.0)
[2020-06-09] MEDS: DEXAMETHASONE SOD PHOSPHATE INJ 4 MG/1 ML VIAL IV SCH ×2 (09:10→21:45)
[2020-06-09] MEDS: ESCITALOPRAM OXALATE 10 MG TABLET PO SCH (09:10)
[2020-06-09] MEDS: ASCORBIC ACID 500 MG TABLET PO SCH ×2 (09:11→17:46)
[2020-06-09] MEDS: CHOLECALCIFEROL (D3) 1,000 UNIT (25 MCG) TABLET PO SCH (09:11)
[2020-06-09] MEDS: ACETAMINOPHEN 325 MG TABLET PO PRN (09:11)
[2020-06-09] MEDS: AMLODIPINE BESYLATE 5 MG TABLET PO SCH (09:11)
[2020-06-09] MEDS: ZINC SULFATE 220 MG CAPSULE PO SCH (09:11)
[2020-06-09] MEDS: DOCUSATE SODIUM 100 MG CAPSULE PO SCH ×2 (09:12→17:46)
[2020-06-09] MEDS: CEFEPIME HCL 2 GM in DEXTROSE 5%-WATER 50 ML IV SCH (10:40)
[2020-06-09] MEDS: REMDESIVIR 100 MG in NORMAL SALINE 250 ML IV SCH (10:40)
[2020-06-09] MEDS: ENOXAPARIN SODIUM INJ 80 MG/0.8 ML DISP.SYRIN SUBCUT SCH ×2 (10:44→21:45)
--- NOTE | 2020-06-09 13:21 | PDOC PROGRESS REPORT ---
Subjective Date:: 06/09/20 Subjective:: Yesterday evening, she had a panic attack. I did see her shortly after she had come down and requested holding off on the Ativan at that point. She is continued on her regular Xanax as used at home. This morning, patient complains of a headache. She feels better in terms of her breathing but she is still requiring high flow nasal cannula. She did not like using the CPAP yesterday and prefers to remain off it. She denies any chest pain nausea vomiting or any body pains beside her headache. Reason For Visit: ACUTE RESPIRATORY FAILURE BILATERAL PNUEMONIA,PUI Physical Exam Vital Signs: Temp Pulse Resp BP Pulse Ox 98.2 F 77 19 100/57 L 94 06/09/20 11:34 06/09/20 11:34 06/09/20 11:34 06/09/20 11:34 06/09/20 11:34 Intake & Output 06/08/20 06/09/20 06/10/20 06:59 06:59 06:59 Intake Total 850 650 Output Total 0 0 Balance 850 650 Weight 70.9 kg 73.3 kg General appearance: PRESENT: no acute distress, cooperative Neck exam: ABSENT: JVD Respiratory exam: PRESENT: crackles, symmetrical, unlabored. ABSENT: accessory muscle use, tachypnea, wheezes Cardiovascular exam: PRESENT: RRR, +S1, +S2. ABSENT: tachycardia GI/Abdominal exam: PRESENT: soft. ABSENT: rebound, rigid, tenderness Neurological exam: PRESENT: alert, awake, oriented to person, oriented to place, oriented to time Psychiatric exam: ABSENT: agitated, anxious Results Laboratory Results: 06/07/20 05:16 06/07/20 05:16 06/09/20 04:36 Ferritin 620.00 H C-Reactive Protein 20.2 H 06/04/20 20:55 Troponin I < 0.012 NT-Pro-B Natriuret Pep 477 H Impressions: Chest X-Ray 06/04/20 22:15 IMPRESSION: Apparent developing bilateral lower lung interstitial opacities worrisome for pneumonia and differential diagnosis would include viral infections. Assessment and Plan - Diagnosis (1) Pneumonia due to COVID-19 virus Is this a current diagnosis for this admission?: Yes Plan: Remdesivir day 4 s/p covalesent plasma Dexamethasone day 5 S/p 5 days of Vanc Cefepime just in case of any underlying comorbid bacterial pneumonia. Unfortunately, patient's stage IV metastatic lung cancer and elderly age are poor prognostic indicators for patient's outcome. (2) Acute respiratory failure with hypoxia Is this a current diagnosis for this admission?: Yes Plan: Due to COVID-19. Oxygenation is adequate on HFNC 92%/45L. Remains full code full treatment. (3) Stage 4 lung cancer Qualifiers: Laterality: unspecified laterality Qualified Code(s): C34.90 - Malignant neoplasm of unspecified part of unspecified bronchus or lung Is this a current diagnosis for this admission?: Yes Plan: Metastatic lung cancer with metastasis to liver and bone. Follows with oncologist in [place] Dr. Viera. Last chemo was 3 weeks prior to admission. Continue pain regimen for treatment of cancer related pain Bowel regimen (4) History of DVT (deep vein thrombosis) Is this a current diagnosis for this admission?: Yes Plan: Upper extremity DVT due to Port-A-Cath. Switch Eliquis to Lovenox therapeutic (5) Thrombocytopenia Is this a current diagnosis for this admission?: Yes Plan: Seems to be stable. Etiology and chronicity unknown. INR and PTT are adequate. (6) Anxiety and depression Is this a current diagnosis for this admission?: Yes Plan: c/w xanax and escitalopram - Time Time Spent with patient: 15-24 minutes Anticipated Discharge Disposition: Home, Self Care Anticipated Discharge Timeframe: Unknown
[2020-06-09 18:31] LABS: VANCOMYCIN,TROUGH 8.8 ug/mL (5.0-20.0)
[2020-06-09] MEDS ORDERED: LORAZEPAM INJ 2 MG/1 ML VIAL ONE (19:26)
[2020-06-09] MEDS ORDERED: LORAZEPAM INJ 2 MG/1 ML VIAL IV ONE (19:45)
[2020-06-10] MEDS: ALPRAZOLAM 0.25 MG TABLET PO PRN ×2 (08:37→17:22)
[2020-06-10] MEDS: ENOXAPARIN SODIUM INJ 80 MG/0.8 ML DISP.SYRIN SUBCUT SCH ×2 (10:00→21:07)
[2020-06-10] MEDS: REMDESIVIR 100 MG in NORMAL SALINE 250 ML IV SCH (10:23)
[2020-06-10] MEDS: ASCORBIC ACID 500 MG TABLET PO SCH ×2 (10:23→17:18)
[2020-06-10] MEDS: ZINC SULFATE 220 MG CAPSULE PO SCH (10:24)
[2020-06-10] MEDS: DEXAMETHASONE SOD PHOSPHATE INJ 4 MG/1 ML VIAL IV SCH ×2 (10:24→21:07)
[2020-06-10] MEDS: CHOLECALCIFEROL (D3) 1,000 UNIT (25 MCG) TABLET PO SCH (10:24)
[2020-06-10] MEDS: DOCUSATE SODIUM 100 MG CAPSULE PO SCH ×2 (10:24→17:13)
[2020-06-10] MEDS: ESCITALOPRAM OXALATE 10 MG TABLET PO SCH (10:24)
[2020-06-10] MEDS: AMLODIPINE BESYLATE 5 MG TABLET PO SCH (10:24)
--- NOTE | 2020-06-10 13:08 | PDOC PROGRESS REPORT ---
Subjective Date:: 06/10/20 Subjective:: She is having decreased appetite and did not eat much yesterday. He had to eat breakfast. [place] a little anxious earlier but received her Xanax. Denies nausea vomiting. Denies any pains. Has been dyspneic when ambulating and her O2 sat drop even when she ambulates to the bedside commode. Reason For Visit: ACUTE RESPIRATORY FAILURE BILATERAL PNUEMONIA,PUI Physical Exam Vital Signs: Temp Pulse Resp BP Pulse Ox 97.6 F 80 17 107/67 93 06/10/20 11:10 06/10/20 11:10 06/10/20 11:10 06/10/20 11:10 06/10/20 11:10 Intake & Output 06/09/20 06/10/20 06/11/20 06:59 06:59 06:59 Intake Total 650 760 250 Output Total 0 800 Balance 650 -40 250 Weight 73.3 kg 73.3 kg General appearance: PRESENT: no acute distress, cooperative Neck exam: ABSENT: JVD Respiratory exam: PRESENT: crackles, symmetrical, unlabored. ABSENT: accessory muscle use, retraction, tachypnea, wheezes Cardiovascular exam: PRESENT: RRR, +S1, +S2. ABSENT: tachycardia GI/Abdominal exam: PRESENT: soft. ABSENT: rebound, rigid, tenderness Neurological exam: PRESENT: alert, awake, oriented to person, oriented to place, oriented to time, oriented to situation Psychiatric exam: ABSENT: agitated, anxious Results Laboratory Results: 06/07/20 05:16 06/07/20 05:16 06/04/20 23:45 Blood Blood Culture - Final NO GROWTH IN 5 DAYS 06/04/20 22:25 Blood Blood Culture - Final NO GROWTH IN 5 DAYS 06/04/20 20:55 Troponin I < 0.012 NT-Pro-B Natriuret Pep 477 H Impressions: Chest X-Ray 06/04/20 22:15 IMPRESSION: Apparent developing bilateral lower lung interstitial opacities worrisome for pneumonia and differential diagnosis would include viral infections. Assessment and Plan - Diagnosis (1) Pneumonia due to COVID-19 virus Is this a current diagnosis for this admission?: Yes Plan: Remdesivir day 5 s/p covalesent plasma Dexamethasone day 6 Received 5 days of Vanc Cefepime as well. Unfortunately, patient's stage IV metastatic lung cancer and elderly age are poor prognostic indicators for patient's outcome. (2) Acute respiratory failure with hypoxia Is this a current diagnosis for this admission?: Yes Plan: Due to COVID-19. Oxygenation is adequate on HFNC 90%/45L. ABG in AM. Update her daughter today. (3) Stage 4 lung cancer Qualifiers: Laterality: unspecified laterality Qualified Code(s): C34.90 - Malignant neoplasm of unspecified part of unspecified bronchus or lung Is this a current diagnosis for this admission?: Yes Plan: Metastatic lung cancer with metastasis to liver and bone. Follows with oncologist in [place] Dr. Viera. Last chemo was 3 weeks prior to admission. Continue pain regimen for treatment of cancer related pain Bowel regimen (4) History of DVT (deep vein thrombosis) Is this a current diagnosis for this admission?: Yes Plan: Upper extremity DVT due to Port-A-Cath. Continue therapeutic Lovenox. On Eliquis at home. (5) Thrombocytopenia Is this a current diagnosis for this admission?: Yes Plan: Seems to be stable. Etiology and chronicity unknown. INR and PTT are adequate. CBC in a.m. (6) Anxiety and depression Is this a current diagnosis for this admission?: Yes Plan: c/w xanax and escitalopram - Time Time Spent with patient: 15-24 minutes Anticipated Discharge Disposition: Home, Self Care Anticipated Discharge Timeframe: >1wk
[2020-06-11] MEDS: HYDROCODONE/ACETAMINOPHEN 5-325 MG TABLET PO PRN ×2 (02:55→19:58)
[2020-06-11] MEDS: ALPRAZOLAM 0.25 MG TABLET PO PRN ×2 (02:56→19:59)
[2020-06-11 05:58] LABS: HEMATOCRIT 36.6 % (36.0-47.0); HEMOGLOBIN 12.8 g/dL (12.0-15.5); MEAN CORPUSCULAR HEMOGLOBIN 30.3 pg (27.0-33.4); MEAN CORPUSCULAR HGB CONC 34.9 g/dL (32.0-36.0); MEAN CORPUSCULAR VOLUME 87 fl (80-97); PLATELET COUNT 105 10^3/uL (150-450); RED BLOOD COUNT 4.22 10^6/uL (3.72-5.28); RED CELL DISTRIBUTION WIDTH 18.2 % (11.5-14.0); WHITE BLOOD COUNT 5.4 10^3/uL (4.0-10.5)
[2020-06-11 06:17] LABS: BLOOD UREA NITROGEN 30 mg/dL (7-20); C-REACTIVE PROTEIN 36.4 mg/L (<10.0); CALCIUM 8.3 mg/dL (8.4-10.2); CARBON DIOXIDE 27 mmol/L (22-30); CHLORIDE 102 mmol/L (98-107); GLUCOSE 152 mg/dL (75-110); POTASSIUM 4.3 mmol/L (3.6-5.0)
[2020-06-11 06:42] LABS: ABSOLUTE LYMPHOCYTES# (MANUAL) 0.2 10^3/uL (0.5-4.7); ABSOLUTE MONOCYTES # (MANUAL) 0.2 10^3/uL (0.1-1.4); BAND NEUTROPHILS % (MANUAL) 2 % (3-5); BASOPHILS % (MANUAL) 0 % (0-2); EOSINOPHILS % (MANUAL) 0 % (0-6); LYMPHOCYTES % (MANUAL) 4 % (13-45); MONOCYTES % (MANUAL) 3 % (3-13); SEGMENTED NEUTROPHILS % (MAN) 91 % (42-78); TOTAL CELLS COUNTED 100
[2020-06-11 06:43] LABS: ANISOCYTOSIS 1+; BURR CELLS SLIGHT; OVALOCYTES SLIGHT; PLATELET COMMENT DECREASED; POIKILOCYTOSIS SLIGHT; TOXIC GRANULATION SLIGHT
[2020-06-11 06:59] LABS: ANION GAP 4 (5-19)
[2020-06-11 07:01] LABS: ARTERIAL BLOOD BASE EXCESS -0.1 mmol/L; ARTERIAL BLOOD H2CO3 1.03 mmol/L (1.05-1.35); ARTERIAL BLOOD HCO3 23.3 mmol/L (20-24); ARTERIAL BLOOD O2 SATURATION 88.7 % (94-98); ARTERIAL BLOOD PCO2 34.2 mmHg (35-45); ARTERIAL BLOOD PH 7.45 (7.35-7.45); ARTERIAL BLOOD TOTAL CO2 24.3 mmol/L (21-25)
[2020-06-11 07:25] LABS: ARTERIAL BLOOD FIO2 85%
[2020-06-11] MEDS: ENOXAPARIN SODIUM INJ 80 MG/0.8 ML DISP.SYRIN SUBCUT SCH ×2 (10:26→21:18)
[2020-06-11] MEDS: DOCUSATE SODIUM 100 MG CAPSULE PO SCH ×2 (10:26→17:29)
[2020-06-11] MEDS: AMLODIPINE BESYLATE 5 MG TABLET PO SCH (10:26)
[2020-06-11] MEDS: ZINC SULFATE 220 MG CAPSULE PO SCH (10:26)
[2020-06-11] MEDS: ASCORBIC ACID 500 MG TABLET PO SCH ×2 (10:26→17:29)
[2020-06-11] MEDS: ESCITALOPRAM OXALATE 10 MG TABLET PO SCH (10:27)
[2020-06-11] MEDS: CHOLECALCIFEROL (D3) 1,000 UNIT (25 MCG) TABLET PO SCH (10:27)
[2020-06-11] MEDS: DEXAMETHASONE SOD PHOSPHATE INJ 4 MG/1 ML VIAL IV SCH ×2 (10:27→21:18)
--- NOTE | 2020-06-11 17:10 | PDOC PROGRESS REPORT ---
Subjective Date:: 06/11/20 Subjective:: Patient's remains quite anxious about her prognosis. She became devastated toda y to find that her oxygenation has not improved. She wants to continue to fight her illness but worried about dying in the hospital. I explained to her about the uncertainty of how things would end up and options and also that her stage IV lung cancer will complicate things and we will continue to help her with her fight through it. Reason For Visit: ACUTE RESPIRATORY FAILURE BILATERAL PNUEMONIA,PUI Physical Exam Vital Signs: Temp Pulse Resp BP Pulse Ox 98.1 F 80 20 108/61 93 06/11/20 15:52 06/11/20 15:52 06/11/20 16:39 06/11/20 15:52 06/11/20 16:39 Intake & Output 06/10/20 06/11/20 06/12/20 06:59 06:59 06:59 Intake Total 760 490 480 Output Total 800 300 Balance -40 190 480 Weight 73.3 kg 72.7 kg General appearance: PRESENT: no acute distress, cooperative Neck exam: ABSENT: JVD Respiratory exam: PRESENT: crackles, symmetrical, unlabored. ABSENT: accessory muscle use, tachypnea, wheezes Cardiovascular exam: PRESENT: RRR, +S1, +S2. ABSENT: tachycardia GI/Abdominal exam: PRESENT: soft. ABSENT: rebound, rigid, tenderness Neurological exam: PRESENT: alert, awake, oriented to person, oriented to place, oriented to time Psychiatric exam: PRESENT: anxious, depressed. ABSENT: agitated Results Laboratory Results: 06/11/20 04:48 06/11/20 04:48 06/11/20 06/11/20 06/11/20 04:48 04:48 06:30 WBC 5.4 RBC 4.22 Hgb 12.8 Hct 36.6 MCV 87 MCH 30.3 MCHC 34.9 RDW 18.2 H Plt Count 105 L Seg Neutrophils % Not Reportable Carbonic Acid 1.03 L HCO3/H2CO3 Ratio 22:1 ABG pH 7.45 ABG pCO2 34.2 L ABG pO2 52.0 L ABG HCO3 23.3 ABG O2 Saturation 88.7 L ABG Base Excess -0.1 FiO2 85% Sodium 133.4 L Potassium 4.3 Chloride 102 Carbon Dioxide 27 Anion Gap 4 L BUN 30 H Creatinine 0.71 Est GFR ( Amer) > 60 Glucose 152 H Calcium 8.3 L Ferritin 685.00 H C-Reactive Protein 36.4 H 06/04/20 20:55 Troponin I < 0.012 NT-Pro-B Natriuret Pep 477 H Impressions: Chest X-Ray 06/04/20 22:15 IMPRESSION: Apparent developing bilateral lower lung interstitial opacities worrisome for pneumonia and differential diagnosis would include viral infections. Assessment and Plan - Diagnosis (1) Pneumonia due to COVID-19 virus Is this a current diagnosis for this admission?: Yes Plan: s/p 5 days of Remdesivir s/p covalesent plasma Dexamethasone day 7 Received 5 days of Vanc Cefepime as well. Unfortunately, patient's stage IV metastatic lung cancer and elderly age are poor prognostic indicators for patient's outcome. (2) Acute respiratory failure with hypoxia Is this a current diagnosis for this admission?: Yes Plan: Due to COVID-19. Oxygenation is adequate on HFNC 85%/50L. ABG this a.m. shows PO2 of 52 and O2 sat of 88% at the time. SPO2 seems to have improved since then now around 93%. I have been communicating with her daughter Katheryn, who is a a nurse, about patient. (3) Stage 4 lung cancer Qualifiers: Laterality: unspecified laterality Qualified Code(s): C34.90 - Malignant neoplasm of unspecified part of unspecified bronchus or lung Is this a current diagnosis for this admission?: Yes Plan: Metastatic lung cancer with metastasis to liver and bone. Follows with oncologist in [place] Dr. Viera. Last chemo was 3 weeks prior to admission. Continue pain regimen for treatment of cancer related pain Bowel regimen (4) History of DVT (deep vein thrombosis) Is this a current diagnosis for this admission?: Yes Plan: Upper extremity DVT due to Port-A-Cath. Continue therapeutic Lovenox. On Eliquis at home. (5) Thrombocytopenia Is this a current diagnosis for this admission?: Yes Plan: Seems to be stable. Etiology and chronicity unknown. INR and PTT are adequate. (6) Anxiety and depression Is this a current diagnosis for this admission?: Yes Plan: c/w xanax and escitalopram - Time Time Spent with patient: 15-24 minutes Anticipated Discharge Disposition: Home, Self Care Anticipated Discharge Timeframe: 14 days
[2020-06-12] MEDS: ALPRAZOLAM 0.25 MG TABLET PO PRN (05:34)
[2020-06-12] MEDS: ZINC SULFATE 220 MG CAPSULE PO SCH (10:39)
[2020-06-12] MEDS: DOCUSATE SODIUM 100 MG CAPSULE PO SCH ×2 (10:39→17:58)
[2020-06-12] MEDS: ESCITALOPRAM OXALATE 10 MG TABLET PO SCH (10:39)
[2020-06-12] MEDS: ASCORBIC ACID 500 MG TABLET PO SCH ×2 (10:40→17:57)
[2020-06-12] MEDS: CHOLECALCIFEROL (D3) 1,000 UNIT (25 MCG) TABLET PO SCH (10:40)
[2020-06-12] MEDS: ENOXAPARIN SODIUM INJ 80 MG/0.8 ML DISP.SYRIN SUBCUT SCH ×3 (10:40→21:26)
[2020-06-12] MEDS: DEXAMETHASONE SOD PHOSPHATE INJ 4 MG/1 ML VIAL IV SCH ×2 (10:40→21:18)
[2020-06-12] MEDS: AMLODIPINE BESYLATE 5 MG TABLET PO SCH (10:40)
[2020-06-12] MEDS: MAG HYDROX/AL HYDROX/SIMETH SUSP 30 ML UDCUP PO PRN (14:54)
--- NOTE | 2020-06-12 15:59 | PDOC PROGRESS REPORT ---
Subjective Date:: 06/12/20 Subjective:: Patient admitted with Covid pneumonitis. Her breathing is better but she is christel lly not responding verbally to my questions Reason For Visit: ACUTE RESPIRATORY FAILURE BILATERAL PNUEMONIA,PUI Physical Exam Vital Signs: Temp Pulse Resp BP Pulse Ox 97.7 F 93 22 H 112/71 91 L 06/12/20 11:26 06/12/20 14:00 06/12/20 12:00 06/12/20 11:26 06/12/20 12:00 Intake & Output 06/11/20 06/12/20 06/13/20 06:59 06:59 06:59 Intake Total 490 740 480 Output Total 300 1200 600 Balance 190 -460 -120 Weight 72.7 kg 72.3 kg 72.3 kg General appearance: PRESENT: no acute distress, well-developed, well-nourished Head exam: PRESENT: atraumatic Eye exam: PRESENT: conjunctiva pink, PERRLA. ABSENT: scleral icterus Ear exam: PRESENT: normal external ear exam Neck exam: ABSENT: carotid bruit, JVD, lymphadenopathy, thyromegaly Respiratory exam: PRESENT: clear to auscultation jarred. ABSENT: rales, rhonchi, wheezes Cardiovascular exam: PRESENT: RRR, +S1, +S2. ABSENT: diastolic murmur, rubs, systolic murmur Pulses: PRESENT: normal dorsalis pedis pul Vascular exam: PRESENT: normal capillary refill GI/Abdominal exam: PRESENT: normal bowel sounds, soft. ABSENT: distended, guarding, mass, organolmegaly, rebound, tenderness Rectal exam: PRESENT: deferred Extremities exam: PRESENT: full ROM. ABSENT: calf tenderness, clubbing, pedal edema Neurological exam: PRESENT: alert, awake, oriented to person, oriented to place, oriented to time, oriented to situation, CN II-XII grossly intact. ABSENT: motor sensory deficit Psychiatric exam: PRESENT: appropriate affect, normal mood. ABSENT: homicidal ideation, suicidal ideation Skin exam: PRESENT: dry, intact, warm. ABSENT: cyanosis, rash Results Laboratory Results: 06/11/20 04:48 06/11/20 04:48 06/04/20 20:55 Troponin I < 0.012 NT-Pro-B Natriuret Pep 477 H Impressions: Chest X-Ray 06/04/20 22:15 IMPRESSION: Apparent developing bilateral lower lung interstitial opacities worrisome for pneumonia and differential diagnosis would include viral infections. Assessment and Plan - Diagnosis (1) Acute respiratory failure with hypoxia Is this a current diagnosis for this admission?: Yes Plan: Due to COVID-19. Oxygenation is adequate on HFNC 85%/50L. ABG this a.m. shows PO2 of 52 and O2 sat of 88% at the time. SPO2 seems to have improved since then now around 93%. I have been communicating with her daughter Katheryn, who is a a nurse, about p atient. Continue current support and wean off oxygen as tolerated (2) Anxiety and depression Is this a current diagnosis for this admission?: Yes Plan: c/w xanax and escitalopram Added scheduled Xanax to her regimen as she appears to be requiring anxiolytics as needed (3) Bilateral pneumonia Qualifiers: Pneumonia type: due to unspecified organism Lung location: lower lobe of lung Qualified Code(s): J18.9 - Pneumonia, unspecified organism Is this a current diagnosis for this admission?: Yes (4) History of DVT (deep vein thrombosis) Is this a current diagnosis for this admission?: Yes Plan: Upper extremity DVT due to Port-A-Cath. Continue therapeutic Lovenox. On Eliquis at home. (5) Metastatic lung cancer (metastasis from lung to other site) Qualifiers: Laterality: unspecified laterality Qualified Code(s): C34.90 - Malignant neoplasm of unspecified part of unspecified bronchus or lung Is this a current diagnosis for this admission?: Yes (6) Pneumonia due to COVID-19 virus Is this a current diagnosis for this admission?: Yes Plan: s/p 5 days of Remdesivir s/p covalesent plasma Dexamethasone day 8 Received 5 days of Vanc Cefepime as well. Unfortunately, patient's stage IV metastatic lung cancer and elderly age are poor prognostic indicators for patient's outcome. We will continue to support and wean off oxygen as tolerated - Time Time Spent with patient: 15-24 minutes Medications reviewed and adjusted accordingly: Yes Anticipated Discharge Disposition: Home with Home Health Anticipated Discharge Timeframe: within 72 hours
[2020-06-12] MEDS: ONDANSETRON HCL INJ/PF 4 MG/2 ML SDV IV PRN (17:59)
[2020-06-12] MEDS: FAMOTIDINE 20 MG TABLET PO SCH (18:21)
[2020-06-12 19:05] LABS: APPEARANCE,URINE SLIGHTLY-CLOUDY; BILIRUBIN,URINE NEGATIVE (NEGATIVE); CALCIUM OXALATE CRYSTALS,URINE RARE /HPF; COLOR,URINE YELLOW; GLUCOSE, URINE NEGATIVE (NEGATIVE); KETONES,URINE NEGATIVE (NEGATIVE); LEUKOCYTE ESTERASE,URINE NEGATIVE (NEGATIVE); NITRITE,URINE NEGATIVE (NEGATIVE); PROTEIN,URINE NEGATIVE (NEGATIVE); URINE SPECIFIC GRAVITY 1.023; UROBILINOGEN,URINE NEGATIVE mg/dL (<2.0)
[2020-06-12] MEDS: ALPRAZOLAM 0.5 MG TABLET PO SCH (21:18)
[2020-06-13] MEDS: FAMOTIDINE 20 MG TABLET PO SCH ×2 (05:49→17:25)
[2020-06-13] MEDS: ALPRAZOLAM 0.5 MG TABLET PO SCH ×3 (05:49→22:29)
[2020-06-13] MEDS: ESCITALOPRAM OXALATE 10 MG TABLET PO SCH (10:04)
[2020-06-13] MEDS: DOCUSATE SODIUM 100 MG CAPSULE PO SCH ×3 (10:04→17:25)
[2020-06-13] MEDS: AMLODIPINE BESYLATE 5 MG TABLET PO SCH (10:04)
[2020-06-13] MEDS: DEXAMETHASONE SOD PHOSPHATE INJ 4 MG/1 ML VIAL IV SCH ×2 (10:04→22:29)
[2020-06-13] MEDS: ASCORBIC ACID 500 MG TABLET PO SCH ×2 (10:04→17:25)
[2020-06-13] MEDS: ENOXAPARIN SODIUM INJ 80 MG/0.8 ML DISP.SYRIN SUBCUT SCH ×2 (10:04→22:29)
[2020-06-13] MEDS: ZINC SULFATE 220 MG CAPSULE PO SCH (10:04)
[2020-06-13] MEDS: CHOLECALCIFEROL (D3) 1,000 UNIT (25 MCG) TABLET PO SCH (10:05)
--- NOTE | 2020-06-13 17:22 | PDOC PROGRESS REPORT ---
Subjective Date:: 06/13/20 Subjective:: Patient admitted with Covid pneumonitis. Her breathing is better but she is christel lly not responding verbally to my questions Patient is actually more awake and alert today. I was able to carry on a conversation with her. She will try and keep her oxygen on as she apparently dropped her oxygen saturation last night as she was unable to wear her mask. She has Oxymizer on today and she is saturating well Reason For Visit: ACUTE RESPIRATORY FAILURE BILATERAL PNUEMONIA,PUI Physical Exam Vital Signs: Temp Pulse Resp BP Pulse Ox 98.0 F 78 18 102/60 88 L 06/13/20 16:18 06/13/20 16:18 06/13/20 16:42 06/13/20 16:18 06/13/20 16:42 Intake & Output 06/12/20 06/13/20 06/14/20 06:59 06:59 06:59 Intake Total 740 790 360 Output Total 1200 1800 175 Balance -460 -1010 185 Weight 72.3 kg 72.1 kg General appearance: PRESENT: no acute distress, well-developed, well-nourished Head exam: PRESENT: atraumatic, normocephalic Eye exam: PRESENT: conjunctiva pink. ABSENT: scleral icterus Mouth exam: PRESENT: moist, tongue midline Neck exam: ABSENT: carotid bruit, JVD, lymphadenopathy, thyromegaly Respiratory exam: PRESENT: clear to auscultation jarred. ABSENT: rales, rhonchi, wheezes Cardiovascular exam: PRESENT: RRR, +S1, +S2. ABSENT: diastolic murmur, rubs, systolic murmur Pulses: PRESENT: normal dorsalis pedis pul Vascular exam: PRESENT: normal capillary refill GI/Abdominal exam: PRESENT: normal bowel sounds, soft. ABSENT: distended, guarding, mass, organolmegaly, rebound, tenderness Rectal exam: PRESENT: deferred Extremities exam: PRESENT: full ROM. ABSENT: calf tenderness, clubbing, pedal edema Neurological exam: PRESENT: alert, awake, oriented to person, oriented to place, oriented to time, oriented to situation, CN II-XII grossly intact. ABSENT: motor sensory deficit Psychiatric exam: PRESENT: appropriate affect, normal mood. ABSENT: homicidal ideation, suicidal ideation Skin exam: PRESENT: dry, intact, warm. ABSENT: cyanosis, rash Results Laboratory Results: 06/11/20 04:48 06/11/20 04:48 06/11/20 18:23 Urine Color YELLOW Urine Appearance SLIGHTLY-CLOUDY Urine pH 6.0 Ur Specific [place] 1.023 Urine Protein NEGATIVE Urine Glucose (UA) NEGATIVE Urine Ketones NEGATIVE Urine Blood NEGATIVE Urine Nitrite NEGATIVE Ur Leukocyte Esterase NEGATIVE Urine WBC (Auto) 0 Urine RBC (Auto) 1 06/04/20 20:55 Troponin I < 0.012 NT-Pro-B Natriuret Pep 477 H Impressions: Chest X-Ray 06/04/20 22:15 IMPRESSION: Apparent developing bilateral lower lung interstitial opacities worrisome for pneumonia and differential diagnosis would include viral infections. Assessment and Plan - Diagnosis (1) Acute respiratory failure with hypoxia Is this a current diagnosis for this admission?: Yes Plan: Due to COVID-19. Oxygenation is adequate on HFNC 85%/50L. ABG this a.m. shows PO2 of 52 and O2 sat of 88% at the time. SPO2 seems to have improved since then now around 93%. I have been communicating with her daughter Katheryn, who is a a nurse, about patient. Continue current support and wean off oxygen as tolerated 06/13 Patient appears to be stabilizing at today. She is still on high flow oxygen but appears to be better than I saw her yesterday. (2) Anxiety and depression Is this a current diagnosis for this admission?: Yes Plan: c/w xanax and escitalopram Added scheduled Xanax to her regimen as she appears to be requiring anxiolytics as needed 06/13 this seems better controlled today (3) Bilateral pneumonia Qualifiers: Pneumonia type: due to unspecified organism Lung location: lower lobe of lung Qualified Code(s): J18.9 - Pneumonia, unspecified organism Is this a current diagnosis for this admission?: Yes (4) History of DVT (deep vein thrombosis) Is this a current diagnosis for this admission?: Yes Plan: Upper extremity DVT due to Port-A-Cath. Continue therapeutic Lovenox. On Eliquis at home. Can likely change back to Eliquis at discharge (5) Metastatic lung cancer (metastasis from lung to other site) Qualifiers: Laterality: unspecified laterality Qualified Code(s): C34.90 - Malignant neoplasm of unspecified part of unspecified bronchus or lung Is this a current diagnosis for this admission?: Yes (6) Pneumonia due to COVID-19 virus Is this a current diagnosis for this admission?: Yes Plan: s/p 5 days of Remdesivir s/p covalesent plasma Dexamethasone day 8 Received 5 days of Vanc Cefepime as well. Unfortunately, patient's stage IV metastatic lung cancer and elderly age are poor prognostic indicators for patient's outcome. We will continue to support and wean off oxygen as tolerated Continue current management - Time Time Spent with patient: 15-24 minutes Medications reviewed and adjusted accordingly: Yes Anticipated Discharge Disposition: Home with Home Health Anticipated Discharge Timeframe: within 72 hours
[2020-06-14] MEDS: ALPRAZOLAM 0.5 MG TABLET PO SCH ×3 (05:34→22:04)
[2020-06-14] MEDS: FAMOTIDINE 20 MG TABLET PO SCH ×2 (05:34→17:05)
[2020-06-14 07:09] LABS: HEMOGLOBIN 13.6 g/dL (12.0-15.5); MEAN CORPUSCULAR HEMOGLOBIN 30.1 pg (27.0-33.4); MEAN CORPUSCULAR HGB CONC 34.8 g/dL (32.0-36.0); MEAN CORPUSCULAR VOLUME 87 fl (80-97); PLATELET COUNT 101 10^3/uL (150-450); RED CELL DISTRIBUTION WIDTH 18.4 % (11.5-14.0); WHITE BLOOD COUNT 8.7 10^3/uL (4.0-10.5)
[2020-06-14] MEDS: ONDANSETRON HCL INJ/PF 4 MG/2 ML SDV IV PRN ×2 (07:09→10:41)
[2020-06-14] MEDS: MAG HYDROX/AL HYDROX/SIMETH SUSP 30 ML UDCUP PO PRN (07:09)
[2020-06-14 07:32] LABS: ABSOLUTE LYMPHOCYTES# (MANUAL) 0.2 10^3/uL (0.5-4.7); ABSOLUTE MONOCYTES # (MANUAL) 0.3 10^3/uL (0.1-1.4); BASOPHILS % (MANUAL) 0 % (0-2); BLOOD UREA NITROGEN 40 mg/dL (7-20); CALCIUM 8.2 mg/dL (8.4-10.2); CHLORIDE 98 mmol/L (98-107); EOSINOPHILS % (MANUAL) 0 % (0-6); GLUCOSE 149 mg/dL (75-110); LYMPHOCYTES % (MANUAL) 2 % (13-45); MONOCYTES % (MANUAL) 4 % (3-13); POTASSIUM 4.2 mmol/L (3.6-5.0); SEGMENTED NEUTROPHILS % (MAN) 94 % (42-78); TOTAL CELLS COUNTED 100
[2020-06-14 07:36] LABS: ANISOCYTOSIS 1+; OVALOCYTES SLIGHT; POLYCHROMASIA SLIGHT; TOXIC GRANULATION SLIGHT; TOXIC VACUOLATION PRESENT
[2020-06-14 07:37] LABS: PLATELET COMMENT DECREASED; TEAR DROP CELLS SLIGHT
[2020-06-14 07:38] LABS: ANION GAP 5 (5-19); CARBON DIOXIDE 29 mmol/L (22-30)
[2020-06-14] MEDS: ENOXAPARIN SODIUM INJ 80 MG/0.8 ML DISP.SYRIN SUBCUT SCH ×2 (09:53→22:02)
[2020-06-14] MEDS: DOCUSATE SODIUM 100 MG CAPSULE PO SCH ×2 (09:53→17:05)
[2020-06-14] MEDS: ZINC SULFATE 220 MG CAPSULE PO SCH (09:53)
[2020-06-14] MEDS: ESCITALOPRAM OXALATE 10 MG TABLET PO SCH (09:54)
[2020-06-14] MEDS: DEXAMETHASONE SOD PHOSPHATE INJ 4 MG/1 ML VIAL IV SCH ×2 (09:54→22:02)
[2020-06-14] MEDS: ASCORBIC ACID 500 MG TABLET PO SCH ×2 (09:54→17:05)
[2020-06-14] MEDS: CHOLECALCIFEROL (D3) 1,000 UNIT (25 MCG) TABLET PO SCH (09:54)
[2020-06-14] MEDS: AMLODIPINE BESYLATE 5 MG TABLET PO SCH ×2 (09:55→09:57)
[2020-06-14 16:45] LABS: APPEARANCE,URINE SLIGHTLY-CLOUDY; BILIRUBIN,URINE NEGATIVE (NEGATIVE); CALCIUM OXALATE CRYSTALS,URINE RARE /HPF; COLOR,URINE YELLOW; GLUCOSE, URINE NEGATIVE (NEGATIVE); KETONES,URINE NEGATIVE (NEGATIVE); LEUKOCYTE ESTERASE,URINE NEGATIVE (NEGATIVE); NITRITE,URINE NEGATIVE (NEGATIVE); PROTEIN,URINE NEGATIVE (NEGATIVE); URINE SPECIFIC GRAVITY 1.023; UROBILINOGEN,URINE NEGATIVE mg/dL (<2.0)
--- NOTE | 2020-06-14 17:40 | PDOC PROGRESS REPORT ---
Subjective Date:: 06/14/20 Subjective:: Patient admitted with Covid pneumonitis. Her breathing is better but she is christel lly not responding verbally to my questions Patient is actually more awake and alert today. I was able to carry on a conversation with her. She will try and keep her oxygen on as she apparently dropped her oxygen saturation last night as she was unable to wear her mask. She has Oxymizer on today and she is saturating well 06/14 Patient appears to be stabilizing. She is still on high flow oxygen at 100% with a pulse oximetry of 97%. She is otherwise hemodynamically stable Reason For Visit: ACUTE RESPIRATORY FAILURE BILATERAL PNUEMONIA,PUI Physical Exam Vital Signs: Temp Pulse Resp BP Pulse Ox 98.6 F 87 16 107/64 97 06/14/20 11:39 06/14/20 14:00 06/14/20 12:00 06/14/20 11:39 06/14/20 12:00 Intake & Output 06/13/20 06/14/20 06/15/20 06:59 06:59 06:59 Intake Total 790 620 Output Total 1800 475 Balance -1010 145 Weight 72.1 kg 70.3 kg General appearance: PRESENT: no acute distress, well-nourished Head exam: PRESENT: atraumatic, normocephalic Eye exam: PRESENT: conjunctiva pink, EOMI, PERRLA. ABSENT: scleral icterus Mouth exam: PRESENT: moist, tongue midline Neck exam: ABSENT: carotid bruit, JVD, lymphadenopathy, thyromegaly Respiratory exam: PRESENT: decreased breath sounds, unlabored. ABSENT: rales, rhonchi, wheezes Cardiovascular exam: PRESENT: RRR, +S1, +S2. ABSENT: diastolic murmur, rubs, systolic murmur Pulses: PRESENT: normal dorsalis pedis pul Vascular exam: PRESENT: normal capillary refill GI/Abdominal exam: PRESENT: normal bowel sounds, soft. ABSENT: distended, guarding, mass, organolmegaly, rebound, tenderness Rectal exam: PRESENT: deferred Extremities exam: PRESENT: full ROM. ABSENT: calf tenderness, clubbing, pedal edema Neurological exam: PRESENT: alert, awake, oriented to person, oriented to place, oriented to time, oriented to situation, CN II-XII grossly intact. ABSENT: motor sensory deficit Psychiatric exam: PRESENT: appropriate affect, normal mood. ABSENT: homicidal ideation, suicidal ideation Skin exam: PRESENT: dry, intact, warm. ABSENT: cyanosis, rash Results Laboratory Results: 06/14/20 06:30 06/14/20 06:30 06/14/20 06/14/20 06/14/20 06:30 06:30 16:13 WBC 8.7 RBC 4.50 Hgb 13.6 Hct 39.0 MCV 87 MCH 30.1 MCHC 34.8 RDW 18.4 H Plt Count 101 L Seg Neutrophils % Not Reportable Sodium 131.7 L Potassium 4.2 Chloride 98 Carbon Dioxide 29 Anion Gap 5 BUN 40 H Creatinine 0.76 Est GFR ( Amer) > 60 Glucose 149 H Calcium 8.2 L Urine Color YELLOW Urine Appearance SLIGHTLY-CLOUDY Urine pH 6.0 Ur Specific [place] 1.023 Urine Protein NEGATIVE Urine Glucose (UA) NEGATIVE Urine Ketones NEGATIVE Urine Blood NEGATIVE Urine Nitrite NEGATIVE Ur Leukocyte Esterase NEGATIVE Urine WBC (Auto) 1 Urine RBC (Auto) 0 06/04/20 20:55 Troponin I < 0.012 NT-Pro-B Natriuret Pep 477 H Impressions: Chest X-Ray 06/04/20 22:15 IMPRESSION: Apparent developing bilateral lower lung interstitial opacities worrisome for pneumonia and differential diagnosis would include viral infections. Assessment and Plan - Diagnosis (1) Acute respiratory failure with hypoxia Is this a current diagnosis for this admission?: Yes Plan: Due to COVID-19. Oxygenation is adequate on HFNC 85%/50L. ABG this a.m. shows PO2 of 52 and O2 sat of 88% at the time. SPO2 seems to have improved since then now around 93%. I have been communicating with her daughter Katheryn, who is a a nurse, about patient. Continue current support and wean off oxygen as tolerated 06/13 Patient appears to be stabilizing at today. She is still on high flow oxygen but appears to be better than I saw her yesterday. 06/14 patient remains largely unchanged. We will continue with current measures (2) Anxiety and depression Is this a current diagnosis for this admission?: Yes Plan: c/w xanax and escitalopram Added scheduled Xanax to her regimen as she appears to be requiring anxiolytics as needed 06/13 this seems better controlled today 06/14 continue anxiolytics as indicated (3) Bilateral pneumonia Qualifiers: Pneumonia type: due to unspecified organism Lung location: lower lobe of lung Qualified Code(s): J18.9 - Pneumonia, unspecified organism Is this a current diagnosis for this admission?: Yes (4) History of DVT (deep vein thrombosis) Is this a current diagnosis for this admission?: Yes Plan: Upper extremity DVT due to Port-A-Cath. Continue therapeutic Lovenox. On Eliquis at home. Can likely change back to Eliquis at discharge Platelet count noted to be 101,000 down from about [id number] on admission. We will continue to monitor. This is likely due to her underlying illness as well as acute illness. (5) Metastatic lung cancer (metastasis from lung to other site) Qualifiers: Laterality: unspecified laterality Qualified Code(s): C34.90 - Malignant neoplasm of unspecified part of unspecified bronchus or lung Is this a current diagnosis for this admission?: Yes (6) Pneumonia due to COVID-19 virus Is this a current diagnosis for this admission?: Yes Plan: s/p 5 days of Remdesivir s/p covalesent plasma Dexamethasone day 8 Received 5 days of Vanc Cefepime as well. Unfortunately, patient's stage IV metastatic lung cancer and elderly age are poor prognostic indicators for patient's outcome. We will continue to support and wean off oxygen as tolerated Continue current management - Time Time Spent with patient: 15-24 minutes Medications reviewed and adjusted accordingly: Yes Anticipated Discharge Disposition: Home, Self Care Anticipated Discharge Timeframe: within 72 hours
[2020-06-15] MEDS: FAMOTIDINE 20 MG TABLET PO SCH ×2 (05:39→17:43)
[2020-06-15] MEDS: ALPRAZOLAM 0.5 MG TABLET PO SCH ×3 (05:39→22:29)
[2020-06-15 06:44] LABS: AMORPHOUS SEDIMENT,URINE TRACE /HPF; APPEARANCE,URINE CLOUDY; BILIRUBIN,URINE NEGATIVE (NEGATIVE); COLOR,URINE YELLOW; GLUCOSE, URINE NEGATIVE (NEGATIVE); KETONES,URINE NEGATIVE (NEGATIVE); LEUKOCYTE ESTERASE,URINE NEGATIVE (NEGATIVE); NITRITE,URINE NEGATIVE (NEGATIVE); PROTEIN,URINE NEGATIVE (NEGATIVE); URINE SPECIFIC GRAVITY 1.028; UROBILINOGEN,URINE NEGATIVE mg/dL (<2.0)
[2020-06-15] MEDS: ENOXAPARIN SODIUM INJ 80 MG/0.8 ML DISP.SYRIN SUBCUT SCH ×2 (10:09→22:29)
[2020-06-15] MEDS: DOCUSATE SODIUM 100 MG CAPSULE PO SCH ×2 (10:09→17:43)
[2020-06-15] MEDS: DEXAMETHASONE SOD PHOSPHATE INJ 4 MG/1 ML VIAL IV SCH ×2 (10:10→22:29)
[2020-06-15] MEDS: ZINC SULFATE 220 MG CAPSULE PO SCH (10:10)
[2020-06-15] MEDS: ASCORBIC ACID 500 MG TABLET PO SCH ×2 (10:10→17:42)
[2020-06-15] MEDS: CHOLECALCIFEROL (D3) 1,000 UNIT (25 MCG) TABLET PO SCH (10:10)
[2020-06-15] MEDS: AMLODIPINE BESYLATE 5 MG TABLET PO SCH (10:10)
[2020-06-15] MEDS: ESCITALOPRAM OXALATE 10 MG TABLET PO SCH (10:10)
[2020-06-15] MEDS: ACETAMINOPHEN 325 MG TABLET PO PRN (12:48)
--- NOTE | 2020-06-15 14:00 | PDOC PROGRESS REPORT ---
Subjective Date:: 06/15/20 Subjective:: Patient remains sad about the possibility of dying from this infection. She get s anxious about it. She did have some bleeding from a tiny laceration at her Port-A-Cath site earlier this morning and overnight but not currently bleeding at the time of my examination. Reason For Visit: ACUTE RESPIRATORY FAILURE BILATERAL PNUEMONIA,PUI Physical Exam Vital Signs: Temp Pulse Resp BP Pulse Ox 98.4 F 84 25 H 111/64 100 06/15/20 09:09 06/15/20 11:20 06/15/20 12:00 06/15/20 11:20 06/15/20 12:00 Intake & Output 06/14/20 06/15/20 06/16/20 06:59 06:59 06:59 Intake Total 620 808 Output Total 475 900 Balance 145 -92 Weight 70.3 kg 71.2 kg General appearance: PRESENT: no acute distress, cooperative Neck exam: ABSENT: JVD Respiratory exam: PRESENT: crackles, symmetrical, unlabored, other - Very small skin laceration over port cath site without active bleeding.. ABSENT: tachypnea, wheezes Cardiovascular exam: PRESENT: RRR, +S1, +S2. ABSENT: tachycardia GI/Abdominal exam: PRESENT: soft. ABSENT: rebound, rigid, tenderness Neurological exam: PRESENT: alert, awake, oriented to person, oriented to place, oriented to time Results Laboratory Results: 06/14/20 06:30 06/14/20 06:30 06/14/20 06/15/20 16:13 05:45 Urine Color YELLOW YELLOW Urine Appearance SLIGHTLY-CLOUDY CLOUDY Urine pH 6.0 6.0 Ur Specific [place] 1.023 1.028 Urine Protein NEGATIVE NEGATIVE Urine Glucose (UA) NEGATIVE NEGATIVE Urine Ketones NEGATIVE NEGATIVE Urine Blood NEGATIVE NEGATIVE Urine Nitrite NEGATIVE NEGATIVE Ur Leukocyte Esterase NEGATIVE NEGATIVE Urine WBC (Auto) 1 1 Urine RBC (Auto) 0 0 06/04/20 20:55 Troponin I < 0.012 NT-Pro-B Natriuret Pep 477 H Impressions: Chest X-Ray 06/04/20 22:15 IMPRESSION: Apparent developing bilateral lower lung interstitial opacities worrisome for pneumonia and differential diagnosis would include viral infections. Assessment and Plan - Diagnosis (1) Pneumonia due to COVID-19 virus Is this a current diagnosis for this admission?: Yes Plan: s/p 5 days of Remdesivir s/p covalesent plasma Dexamethasone day 10 Received 5 days of Vanc Cefepime initially as well. Unfortunately, patient's stage IV metastatic lung cancer and elderly age are poor prognostic indicators for patient's outcome. We will continue to support and wean off oxygen as tolerated (2) Acute respiratory failure with hypoxia Is this a current diagnosis for this admission?: Yes Plan: Due to COVID-19. Oxygenation is adequate on HFNC 100%/50 L. SPO2 seems to be in the high 90s. We will attempt to wean FiO2 down to 80% if tolerated with goal SPO2 above 90% and above. (3) Stage 4 lung cancer Qualifiers: Laterality: unspecified laterality Qualified Code(s): C34.90 - Malignant neoplasm of unspecified part of unspecified bronchus or lung Is this a current diagnosis for this admission?: Yes Plan: Metastatic lung cancer with metastasis to liver and bone. Follows with oncologist in [place] Dr. Viera. Last chemo was 3 weeks prior to admission. Continue pain regimen for treatment of cancer related pain Bowel regimen (4) History of DVT (deep vein thrombosis) Is this a current diagnosis for this admission?: Yes Plan: Upper extremity DVT due to Port-A-Cath. Continue therapeutic Lovenox. On Eliquis at home. DOC2RN order in place on not holding Lovenox doses w/o notifying physician. (5) Thrombocytopenia Is this a current diagnosis for this admission?: Yes (6) Anxiety and depression Is this a current diagnosis for this admission?: Yes - Time Time Spent with patient: 15-24 minutes Anticipated Discharge Disposition: Home with Home Health Anticipated Discharge Timeframe: Unknown
[2020-06-15] MEDS: OXYCODONE HCL IR 5 MG TABLET PO PRN (14:52)
[2020-06-16] MEDS: ALPRAZOLAM 0.5 MG TABLET PO SCH ×3 (05:10→21:09)
[2020-06-16] MEDS: FAMOTIDINE 20 MG TABLET PO SCH ×2 (05:10→17:07)
[2020-06-16] MEDS: ZINC SULFATE 220 MG CAPSULE PO SCH (09:17)
[2020-06-16] MEDS: CHOLECALCIFEROL (D3) 1,000 UNIT (25 MCG) TABLET PO SCH (09:17)
[2020-06-16] MEDS: ASCORBIC ACID 500 MG TABLET PO SCH ×2 (09:17→17:06)
[2020-06-16] MEDS: ESCITALOPRAM OXALATE 10 MG TABLET PO SCH (09:17)
[2020-06-16] MEDS: DEXAMETHASONE SOD PHOSPHATE INJ 4 MG/1 ML VIAL IV SCH ×2 (09:17→21:10)
[2020-06-16] MEDS: ENOXAPARIN SODIUM INJ 80 MG/0.8 ML DISP.SYRIN SUBCUT SCH ×2 (09:17→21:11)
[2020-06-16] MEDS: AMLODIPINE BESYLATE 5 MG TABLET PO SCH (09:17)
[2020-06-16] MEDS: ONDANSETRON HCL INJ/PF 4 MG/2 ML SDV IV PRN (09:18)
[2020-06-16] MEDS: OXYCODONE HCL IR 5 MG TABLET PO PRN (09:26)
[2020-06-16] MEDS: DOCUSATE SODIUM 100 MG CAPSULE PO SCH ×2 (10:08→17:07)
--- NOTE | 2020-06-16 15:35 | PDOC PROGRESS REPORT ---
Subjective Subjective:: Per Previous Physician: "RADHA GAUTAM is a 69 year old female with a history 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 She has been on high-dose prednisone and is being weaned at this point, currently down to 40 mg a day. She was hoping to get wean down further off of steroids so she can restart chemo. She is also received 30 radiation treatments. Her oncologist is in [place], a Dr. Viera. She does not know the name of the chemo drugs she was on. She said she was in the hospital about a month ago with a pneumonia and has not been on chemo since then. Her was admitted to the hospital on 17 May with a stroke and was sent to [facility]. He has since been in acute rehab. She has been to that hospital every day and to acute rehab to visit him. She says that she has followed all the appropriate precautions. She said that she is always had some trouble breathing but she feels like it got worse the day after Thanksgiving. She says that she typically gets a little short of breath when she does something simple such as [place], but it has gotten worse and now she is even short of breath at rest. She does not think she has been running a fever. She always has a little bit of a dry cough and it does not seem to be in much different than usual. She is not on oxygen at home. She came in here hypoxic and short of breath and had to be put on BiPAP. She got a dose of dexamethasone and some Rocephin and Zithromax. She has not been tested for coronavirus outside the hospital but the test was ordered while she was in the ER." 06/16/2020 Patient appears to be relatively stable at the moment nursing states she is very slowly and very gradually lowering oxygen requirements, however the patient frequently becomes hypoxemic severely with exertion. She is still maintained on high flow nasal cannula with a saturation approximately 94% on 65% FiO2 nasal cannula. Patient will need to improve substantially to be able to be discharged to a rehab facility or LTAC. Reason For Visit: ACUTE RESPIRATORY FAILURE BILATERAL PNUEMONIA,PUI Physical Exam Vital Signs: Temp Pulse Resp BP Pulse Ox 97.4 F 82 14 112/65 93 06/16/20 07:51 06/16/20 11:34 06/16/20 11:34 06/16/20 11:34 06/16/20 12:00 Intake & Output 06/15/20 06/16/20 06/17/20 06:59 06:59 06:59 Intake Total 808 596 Output Total 900 Balance -92 596 Weight 71.2 kg 70.9 kg Exam: General appearance: PRESENT: no acute distress, well-developed, well-nourished, ill-appearing elderly white female Head exam: PRESENT: atraumatic, normocephalic Eye exam: PRESENT: conjunctiva pink. ABSENT: scleral icterus Mouth exam: PRESENT: moist Respiratory exam: PRESENT: Very scant crackles bilaterally ABSENT: rales, wheezes Cardiovascular exam: PRESENT: RRR. ABSENT: diastolic murmur, rubs, systolic murmur GI/Abdominal exam: PRESENT: normal bowel sounds, soft. ABSENT: distended, guarding, mass, organolmegaly, rebound, tenderness Neurological exam: PRESENT: alert, awake, oriented to person, oriented to place, oriented to time, oriented to situation Psychiatric exam: PRESENT: appropriate affect, normal mood Skin exam: PRESENT: dry, intact, warm Results Laboratory Results: 06/14/20 06:30 06/14/20 06:30 06/04/20 20:55 Troponin I < 0.012 NT-Pro-B Natriuret Pep 477 H Impressions: Chest X-Ray 06/04/20 22:15 IMPRESSION: Apparent developing bilateral lower lung interstitial opacities worrisome for pneumonia and differential diagnosis would include viral infections. Assessment and Plan - Diagnosis (1) Pneumonia due to COVID-19 virus Is this a current diagnosis for this admission?: Yes (2) Acute respiratory failure with hypoxia Is this a current diagnosis for this admission?: Yes (3) Bilateral pneumonia Qualifiers: Pneumonia type: due to unspecified organism Lung location: lower lobe of lung Qualified Code(s): J18.9 - Pneumonia, unspecified organism Is this a current diagnosis for this admission?: Yes (4) Anxiety and depression Is this a current diagnosis for this admission?: Yes (5) History of DVT (deep vein thrombosis) Is this a current diagnosis for this admission?: Yes (6) Metastatic lung cancer (metastasis from lung to other site) Qualifiers: Laterality: unspecified laterality Qualified Code(s): C34.90 - Malignant neoplasm of unspecified part of unspecified bronchus or lung Is this a current diagnosis for this admission?: Yes (7) Person under investigation for COVID-19 Is this a current diagnosis for this admission?: Yes (8) Stage 4 lung cancer Qualifiers: Laterality: unspecified laterality Qualified Code(s): C34.90 - Malignant neoplasm of unspecified part of unspecified bronchus or lung Is this a current diagnosis for this admission?: Yes (9) Thrombocytopenia Is this a current diagnosis for this admission?: Yes - Plan Summary Summary: (1) Pneumonia due to COVID-19 virus Per Previous Physician: "s/p 5 days of Remdesivir s/p covalesent plasma Dexamethasone day 10 Received 5 days of Vanc Cefepime initially as well. Unfortunately, patient's stage IV metastatic lung cancer and elderly age are poor prognostic indicators for patient's outcome. We will continue to support and wean off oxygen as tolerated" Wean oxygen as able, extremely slow recovery (2) Acute respiratory failure with hypoxia Per Previous Physician: "Due to COVID-19. Oxygenation is adequate on HFNC 100%/50 L. SPO2 seems to be in the high 90s. We will attempt to wean FiO2 down to 80% if tolerated with goal SPO2 above 90% and above." Continue supplemental oxygen (3) Stage 4 lung cancer Qualifiers: Laterality: unspecified laterality Qualified Code(s): C34.90 - Malignant neoplasm of unspecified part of unspecified bronchus or lung Is this a current diagnosis for this admission?: Yes Plan: Per Previous Physician: "Metastatic lung cancer with metastasis to liver and bone. Follows with oncologist in [place] Dr. Viera. Last chemo was 3 weeks prior to admission. Continue pain regimen for treatment of cancer related pain Bowel regimen" In remission per patient (4) History of DVT (deep vein thrombosis) Is this a current diagnosis for this admission?: Yes Plan: Per Previous Physician: "Upper extremity DVT due to Port-A-Cath. Continue therapeutic Lovenox. On Eliquis at home. DOC2RN order in place on not holding Lovenox doses w/o notifying physician." Do not stop Lovenox unless platelets fall below 50 or active significant bleeding (5) Thrombocytopenia Is this a current diagnosis for this admission?: Yes (6) Anxiety and depression Is this a current diagnosis for this admission?: Yes - Time Time Spent with patient: 35 or more minutes Medications reviewed and adjusted accordingly: Yes Anticipated Discharge Disposition: Custodial Facility Anticipated Discharge Timeframe: within 72 hours - Inpatient Certification Based on my medical assessment, after consideration of the patient's comorbidities, presenting symptoms, or acuity I expect that the services needed warrant INPATIENT care.: Yes I certify that my determination is in accordance with my understanding of Medicare's requirements for reasonable and necessary INPATIENT services [42 CFR 412.3e].: Yes Medical Necessity: Significant Comorbidiites Make Outpatient Treatment Too Risky, Need Close Monitoring Due to Risk of Patient Decompensation, Need For Continuous Telemetry Monitoring, Need for Nebulizer Therapy and Monitoring of Response, Risk of Complication if Not Cared For in Hospital, Risk of Diagnosis Which Will Require Inpatient Eval/Care/Monitoring
[2020-06-17] MEDS: OXYCODONE HCL IR 5 MG TABLET PO PRN ×2 (06:02→18:57)
[2020-06-17] MEDS: FAMOTIDINE 20 MG TABLET PO SCH (06:02)
[2020-06-17] MEDS: ALPRAZOLAM 0.5 MG TABLET PO SCH ×3 (06:02→22:03)
[2020-06-17] MEDS: MAG HYDROX/AL HYDROX/SIMETH SUSP 30 ML UDCUP PO PRN (08:51)
[2020-06-17] MEDS: CHOLECALCIFEROL (D3) 1,000 UNIT (25 MCG) TABLET PO SCH (09:14)
[2020-06-17] MEDS: ASCORBIC ACID 500 MG TABLET PO SCH ×2 (09:14→17:37)
[2020-06-17] MEDS: ENOXAPARIN SODIUM INJ 80 MG/0.8 ML DISP.SYRIN SUBCUT SCH ×2 (09:14→22:02)
[2020-06-17] MEDS: AMLODIPINE BESYLATE 5 MG TABLET PO SCH (09:14)
[2020-06-17] MEDS: ZINC SULFATE 220 MG CAPSULE PO SCH (09:15)
[2020-06-17] MEDS: ESCITALOPRAM OXALATE 10 MG TABLET PO SCH (09:15)
[2020-06-17] MEDS: DOCUSATE SODIUM 100 MG CAPSULE PO SCH ×2 (09:15→17:37)
[2020-06-17] MEDS: DEXAMETHASONE SOD PHOSPHATE INJ 4 MG/1 ML VIAL IV SCH ×2 (09:15→22:02)
[2020-06-17] MEDS ORDERED: DOXYCYCLINE HYCLATE INJ 100 MG VIAL IV SCH (10:00)
[2020-06-17] MEDS: IVERMECTIN 3 MG TABLET PO SCH (10:54)
[2020-06-17] MEDS: DOXYCYCLINE HYCLATE 100 MG in DEXTROSE 5%-WATER 250 ML IV SCH (12:25)
--- NOTE | 2020-06-17 15:41 | PDOC PROGRESS REPORT ---
Subjective Subjective:: Per Previous Physician: "RADHA GAUTAM is a 69 year old female with a history 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 She has been on high-dose prednisone and is being weaned at this point, currently down to 40 mg a day. She was hoping to get wean down further off of steroids so she can restart chemo. She is also received 30 radiation treatments. Her oncologist is in [place], a Dr. Viera. She does not know the name of the chemo drugs she was on. She said she was in the hospital about a month ago with a pneumonia and has not been on chemo since then. Her was admitted to the hospital on 17 May with a stroke and was sent to [facility]. He has since been in acute rehab. She has been to that hospital every day and to acute rehab to visit him. She says that she has followed all the appropriate precautions. She said that she is always had some trouble breathing but she feels like it got worse the day after Thanksgiving. She says that she typically gets a little short of breath when she does something simple such as [place], but it has gotten worse and now she is even short of breath at rest. She does not think she has been running a fever. She always has a little bit of a dry cough and it does not seem to be in much different than usual. She is not on oxygen at home. She came in here hypoxic and short of breath and had to be put on BiPAP. She got a dose of dexamethasone and some Rocephin and Zithromax. She has not been tested for coronavirus outside the hospital but the test was ordered while she was in the ER." 06/16/2020 Patient appears to be relatively stable at the moment nursing states she is very slowly and very gradually lowering oxygen requirements, however the patient frequently becomes hypoxemic severely with exertion. She is still maintained on high flow nasal cannula with a saturation approximately 94% on 65% FiO2 nasal cannula. Patient will need to improve substantially to be able to be discharged to a rehab facility or LTAC. 06/17/2020 Patient seems to be doing bit worse today and has gradually increasing oxygen requirements over the past few days. She is likely beyond the active viral infection phase of the disease and is now on the inflammatory phase which can persist for multiple weeks. In light of this worsening, I have started her on ivermectin/doxycycline/vitamin supplements. Reason For Visit: ACUTE RESPIRATORY FAILURE BILATERAL PNUEMONIA,PUI Physical Exam Vital Signs: Temp Pulse Resp BP Pulse Ox 98.0 F 78 24 H 95/70 L 92 06/17/20 11:33 06/17/20 14:00 06/17/20 11:36 06/17/20 11:33 06/17/20 11:36 Intake & Output 06/16/20 06/17/20 06/18/20 06:59 06:59 06:59 Intake Total 596 320 Output Total 400 Balance 596 -80 Weight 70.9 kg 69.8 kg Exam: General appearance: PRESENT: no acute distress, well-developed, well-nourished, ill-appearing elderly white female, breathing a bit worse today Head exam: PRESENT: atraumatic, normocephalic Eye exam: PRESENT: conjunctiva pink. ABSENT: scleral icterus Mouth exam: PRESENT: moist Respiratory exam: PRESENT: Very scant crackles bilaterally ABSENT: rales, wheezes Cardiovascular exam: PRESENT: RRR. ABSENT: diastolic murmur, rubs, systolic murmur GI/Abdominal exam: PRESENT: normal bowel sounds, soft. ABSENT: distended, guarding, mass, organolmegaly, rebound, tenderness Neurological exam: PRESENT: alert, awake, oriented to person, oriented to place, oriented to time, oriented to situation Psychiatric exam: PRESENT: appropriate affect, normal mood Skin exam: PRESENT: dry, intact, warm Results Laboratory Results: 06/14/20 06:30 06/14/20 06:30 06/04/20 20:55 Troponin I < 0.012 NT-Pro-B Natriuret Pep 477 H Impressions: Chest X-Ray 06/04/20 22:15 IMPRESSION: Apparent developing bilateral lower lung interstitial opacities worrisome for pneumonia and differential diagnosis would include viral infections. Assessment and Plan - Diagnosis (1) Pneumonia due to COVID-19 virus Is this a current diagnosis for this admission?: Yes (2) Acute respiratory failure with hypoxia Is this a current diagnosis for this admission?: Yes (3) Bilateral pneumonia Qualifiers: Pneumonia type: due to unspecified organism Lung location: lower lobe of lung Qualified Code(s): J18.9 - Pneumonia, unspecified organism Is this a current diagnosis for this admission?: Yes (4) Anxiety and depression Is this a current diagnosis for this admission?: Yes (5) History of DVT (deep vein thrombosis) Is this a current diagnosis for this admission?: Yes (6) Metastatic lung cancer (metastasis from lung to other site) Qualifiers: Laterality: unspecified laterality Qualified Code(s): C34.90 - Malignant neoplasm of unspecified part of unspecified bronchus or lung Is this a current diagnosis for this admission?: Yes (7) Person under investigation for COVID-19 Is this a current diagnosis for this admission?: Yes (8) Stage 4 lung cancer Qualifiers: Laterality: unspecified laterality Qualified Code(s): C34.90 - Malignant neoplasm of unspecified part of unspecified bronchus or lung Is this a current diagnosis for this admission?: Yes (9) Thrombocytopenia Is this a current diagnosis for this admission?: Yes - Plan Summary Summary: (1) Pneumonia due to COVID-19 virus Per Previous Physician: "s/p 5 days of Remdesivir s/p covalesent plasma Dexamethasone day 10 Received 5 days of Vanc Cefepime initially as well. Unfortunately, patient's stage IV metastatic lung cancer and elderly age are poor prognostic indicators for patient's outcome. We will continue to support and wean off oxygen as tolerated" Wean oxygen as able, extremely slow recovery, rising oxygen requirements intermittently Started ivermectin/doxycycline/vitamin supplements on 06/17 for worsening oxygen requirements (2) Acute respiratory failure with hypoxia Per Previous Physician: "Due to COVID-19. Oxygenation is adequate on HFNC 100%/50 L. SPO2 seems to be in the high 90s. We will attempt to wean FiO2 down to 80% if tolerated with goal SPO2 above 90% and above." Continue supplemental oxygen (3) Stage 4 lung cancer Qualifiers: Laterality: unspecified laterality Qualified Code(s): C34.90 - Malignant neoplasm of unspecified part of unspecified bronchus or lung Is this a current diagnosis for this admission?: Yes Plan: Per Previous Physician: "Metastatic lung cancer with metastasis to liver and bone. Follows with oncologist in [place] Dr. Veira. Last chemo was 3 weeks prior to admission. Continue pain regimen for treatment of cancer related pain Bowel regimen" In remission per patient (4) History of DVT (deep vein thrombosis) Is this a current diagnosis for this admission?: Yes Plan: Per Previous Physician: "Upper extremity DVT due to Port-A-Cath. Continue therapeutic Lovenox. On Eliquis at home. DOC2RN order in place on not holding Lovenox doses w/o notifying physician." Do not stop Lovenox unless platelets fall below 50 or active significant bleeding (5) Thrombocytopenia Is this a current diagnosis for this admission?: Yes (6) Anxiety and depression Is this a current diagnosis for this admission?: Yes - Time Time Spent with patient: 35 or more minutes Medications reviewed and adjusted accordingly: Yes Anticipated Discharge Disposition: [facility] Facility Anticipated Discharge Timeframe: within 72 hours - Inpatient Certification Based on my medical assessment, after consideration of the patient's comorbidities, presenting symptoms, or acuity I expect that the services needed warrant INPATIENT care.: Yes I certify that my determination is in accordance with my understanding of Medicare's requirements for reasonable and necessary INPATIENT services [42 CFR 412.3e].: Yes Medical Necessity: Significant Comorbidiites Make Outpatient Treatment Too Risky, Need Close Monitoring Due to Risk of Patient Decompensation, Need For Continuous Telemetry Monitoring, Risk of Complication if Not Cared For in Hospital, Risk of Diagnosis Which Will Require Inpatient Eval/Care/Monitoring
[2020-06-17] MEDS ORDERED: BISACODYL 5 MG TABEC PO PRN (15:43)
[2020-06-17] MEDS ORDERED: BISACODYL 10 MG SUPP.RECT PR PRN (15:43)
[2020-06-17] MEDS: FAMOTIDINE INJ/PF 20 MG/2 ML SDV IV SCH (17:38)
[2020-06-18] MEDS: FAMOTIDINE INJ/PF 20 MG/2 ML SDV IV SCH ×2 (05:23→18:04)
[2020-06-18] MEDS: ALPRAZOLAM 0.5 MG TABLET PO SCH ×3 (05:24→21:14)
[2020-06-18 06:57] LABS: HEMATOCRIT 38.5 % (36.0-47.0); HEMOGLOBIN 13.2 g/dL (12.0-15.5); MEAN CORPUSCULAR HEMOGLOBIN 29.8 pg (27.0-33.4); MEAN CORPUSCULAR HGB CONC 34.3 g/dL (32.0-36.0); MEAN CORPUSCULAR VOLUME 87 fl (80-97); PLATELET COUNT 100 10^3/uL (150-450); RED BLOOD COUNT 4.42 10^6/uL (3.72-5.28); RED CELL DISTRIBUTION WIDTH 19.1 % (11.5-14.0); WHITE BLOOD COUNT 7.7 10^3/uL (4.0-10.5)
[2020-06-18 07:05] LABS: APPEARANCE,URINE SLIGHTLY-CLOUDY; BILIRUBIN,URINE NEGATIVE (NEGATIVE); COLOR,URINE YELLOW; GLUCOSE, URINE NEGATIVE (NEGATIVE); KETONES,URINE NEGATIVE (NEGATIVE); LEUKOCYTE ESTERASE,URINE TRACE (NEGATIVE); NITRITE,URINE NEGATIVE (NEGATIVE); PROTEIN,URINE NEGATIVE (NEGATIVE); URINE SPECIFIC GRAVITY 1.024; UROBILINOGEN,URINE NEGATIVE mg/dL (<2.0)
[2020-06-18 07:08] LABS: BLOOD UREA NITROGEN 36 mg/dL (7-20); CALCIUM 8.3 mg/dL (8.4-10.2); CARBON DIOXIDE 30 mmol/L (22-30); CHLORIDE 97 mmol/L (98-107); GLUCOSE 98 mg/dL (75-110); POTASSIUM 4.2 mmol/L (3.6-5.0)
[2020-06-18 07:32] LABS: ABSOLUTE MONOCYTES # (MANUAL) 0.2 10^3/uL (0.1-1.4); BASOPHILS % (MANUAL) 0 % (0-2); EOSINOPHILS % (MANUAL) 0 % (0-6); LYMPHOCYTES % (MANUAL) 0 % (13-45); MONOCYTES % (MANUAL) 2 % (3-13); SEGMENTED NEUTROPHILS % (MAN) 98 % (42-78); TOTAL CELLS COUNTED 100
[2020-06-18 07:34] LABS: ANISOCYTOSIS 1+; OVALOCYTES 1+; PLATELET COMMENT DECREASED; POIKILOCYTOSIS SLIGHT; POLYCHROMASIA SLIGHT
[2020-06-18 08:20] LABS: ANION GAP 5 (5-19)
[2020-06-18 08:36] LABS: C-REACTIVE PROTEIN < 5.0 mg/L (<10.0)
[2020-06-18] MEDS: DOCUSATE SODIUM 100 MG CAPSULE PO SCH ×2 (09:10→18:04)
[2020-06-18] MEDS: ESCITALOPRAM OXALATE 10 MG TABLET PO SCH (09:10)
[2020-06-18] MEDS: AMLODIPINE BESYLATE 5 MG TABLET PO SCH (09:10)
[2020-06-18] MEDS: ENOXAPARIN SODIUM INJ 80 MG/0.8 ML DISP.SYRIN SUBCUT SCH ×2 (09:10→21:14)
[2020-06-18] MEDS: ASCORBIC ACID 500 MG TABLET PO SCH ×2 (09:10→18:04)
[2020-06-18] MEDS: ZINC SULFATE 220 MG CAPSULE PO SCH (09:10)
[2020-06-18] MEDS: CHOLECALCIFEROL (D3) 1,000 UNIT (25 MCG) TABLET PO SCH (09:10)
[2020-06-18] MEDS: DEXAMETHASONE SOD PHOSPHATE INJ 4 MG/1 ML VIAL IV SCH ×2 (09:10→21:15)
[2020-06-18] MEDS: IVERMECTIN 3 MG TABLET PO SCH (09:11)
--- NOTE | 2020-06-18 09:44 | RADIOLOGY REPORT (SQ) ---
EXAM DESCRIPTION: U/S ABDOMEN LTD W/DOPPLER IMAGES COMPLETED DATE/TIME: 06/18/2020 8:27 am REASON FOR STUDY: suspected cholecystitis, RUQ US COMPARISON: None. TECHNIQUE: Dynamic and static grayscale images acquired of the abdomen and recorded on PACS. Additio nal selected color Doppler and spectral images recorded. LIMITATIONS: None. FINDINGS: PANCREAS: The visualized portions of the pancreas appear normal. LIVER: Normal contour and echotexture of the liver. LIVER VASCULATURE: Normal hepatopetal directional flow in the main portal vein. GALLBLADDER: The gallbladder was nonvisualized. ULTRASOUND-DETECTED CERVANTES'S SIGN: Not applicable. INTRAHEPATIC DUCTS AND COMMON DUCT: The common bile duct measures 6 mm in diameter. There is no dila tation of the intrahepatic duct. INFERIOR VENA CAVA: Not assessed. AORTA: No aneurysm. RIGHT KIDNEY: The right kidney measures 9.2 cm in length. The echogenicity of the renal parenchyma is increased. There is a cyst in the upper pole of the kidney that measures 1.7 x 1.7 x 1.5 cm. The re is no hydronephrosis. PERITONEAL AND RIGHT PLEURAL SPACE: No ascites or effusions. OTHER: No other findings. IMPRESSION: 1. Unable to visualize the gallbladder. 2. Increased echogenicity of the renal parenchyma which could indicate chronic medical renal disease . There is no hydronephrosis. TECHNICAL DOCUMENTATION: JOB ID: [id number] [email or web address]- All Rights Reserved Reading location - IP/workstation name: [email or web address]
[2020-06-18] MEDS: DOXYCYCLINE HYCLATE 100 MG in DEXTROSE 5%-WATER 250 ML IV SCH (13:16)
[2020-06-18] MEDS: OXYCODONE HCL IR 5 MG TABLET PO PRN (13:24)
--- NOTE | 2020-06-18 17:25 | PDOC PROGRESS REPORT ---
Subjective Subjective:: Per Previous Physician: "RADHA GAUTAM is a 69 year old female with a history 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 She has been on high-dose prednisone and is being weaned at this point, currently down to 40 mg a day. She was hoping to get wean down further off of steroids so she can restart chemo. She is also received 30 radiation treatments. Her oncologist is in [place], a Dr. Viera. She does not know the name of the chemo drugs she was on. She said she was in the hospital about a month ago with a pneumonia and has not been on chemo since then. Her was admitted to the hospital on 17 May with a stroke and was sent to [facility]. He has since been in acute rehab. She has been to that hospital every day and to acute rehab to visit him. She says that she has followed all the appropriate precautions. She said that she is always had some trouble breathing but she feels like it got worse the day after Thanksgiving. She says that she typically gets a little short of breath when she does something simple such as [place], but it has gotten worse and now she is even short of breath at rest. She does not think she has been running a fever. She always has a little bit of a dry cough and it does not seem to be in much different than usual. She is not on oxygen at home. She came in here hypoxic and short of breath and had to be put on BiPAP. She got a dose of dexamethasone and some Rocephin and Zithromax. She has not been tested for coronavirus outside the hospital but the test was ordered while she was in the ER." 06/16/2020 Patient appears to be relatively stable at the moment nursing states she is very slowly and very gradually lowering oxygen requirements, however the patient frequently becomes hypoxemic severely with exertion. She is still maintained on high flow nasal cannula with a saturation approximately 94% on 65% FiO2 nasal cannula. Patient will need to improve substantially to be able to be discharged to a rehab facility or LTAC. 06/17/2020 Patient seems to be doing bit worse today and has gradually increasing oxygen requirements over the past few days. She is likely beyond the active viral infection phase of the disease and is now on the inflammatory phase which can persist for multiple weeks. In light of this worsening, I have started her on ivermectin/doxycycline/vitamin supplements. 06/18/2020 Since patient was started on ivermectin protocol, she has seen a significant improvement in her breathing as well as her inflammatory labs. She is still nowhere near baseline and still feels quite poorly I believe she may be turning a corner and may actually improve enough to leave the hospital eventually. This will likely be several days from now if it occurs. D-dimer, ferritin, CRP are all significantly lower today. Right upper quadrant ultrasound did not show any acute findings but could not visualize the gallbladder specifically. Suspect gastritis versus stomach ulcer and patient was started on H2 christiano Reason For Visit: ACUTE RESPIRATORY FAILURE BILATERAL PNUEMONIA,PUI Physical Exam Vital Signs: Temp Pulse Resp BP Pulse Ox 97.6 F 80 19 117/70 98 06/18/20 08:22 06/18/20 14:00 06/18/20 08:22 06/18/20 08:22 06/18/20 15:26 Intake & Output 06/17/20 06/18/20 06/19/20 06:59 06:59 06:59 Intake Total 320 350 250 Output Total 400 700 Balance -80 -350 250 Weight 69.8 kg 69.3 kg Exam: General appearance: PRESENT: no acute distress, well-developed, well-nourished, ill-appearing elderly white female, breathing better today Head exam: PRESENT: atraumatic, normocephalic Eye exam: PRESENT: conjunctiva pink. ABSENT: scleral icterus Mouth exam: PRESENT: moist Respiratory exam: PRESENT: Very scant crackles bilaterally ABSENT: rales, wheezes Cardiovascular exam: PRESENT: RRR. ABSENT: diastolic murmur, rubs, systolic murmur GI/Abdominal exam: PRESENT: normal bowel sounds, soft. ABSENT: distended, guarding, mass, organolmegaly, rebound, tenderness Neurological exam: PRESENT: alert, awake, oriented to person, oriented to place, oriented to time, oriented to situation Psychiatric exam: PRESENT: appropriate affect, normal mood Skin exam: PRESENT: dry, intact, warm Results Laboratory Results: 06/18/20 05:55 06/18/20 05:55 06/18/20 06/18/20 06/18/20 05:55 05:55 05:55 WBC 7.7 RBC 4.42 Hgb 13.2 Hct 38.5 MCV 87 MCH 29.8 MCHC 34.3 RDW 19.1 H Plt Count 100 L Seg Neutrophils % Not Reportable Sodium 131.9 L Potassium 4.2 Chloride 97 L Carbon Dioxide 30 Anion Gap 5 BUN 36 H Creatinine 0.55 Est GFR ( Amer) > 60 Glucose 98 Calcium 8.3 L Ferritin 519.00 H C-Reactive Protein < 5.0 Urine Color YELLOW Urine Appearance SLIGHTLY-CLOUDY Urine pH 6.0 Ur Specific [place] 1.024 Urine Protein NEGATIVE Urine Glucose (UA) NEGATIVE Urine Ketones NEGATIVE Urine Blood NEGATIVE Urine Nitrite NEGATIVE Ur Leukocyte Esterase TRACE H Urine WBC (Auto) 1 Urine RBC (Auto) 1 06/04/20 20:55 Troponin I < 0.012 NT-Pro-B Natriuret Pep 477 H Impressions: Chest X-Ray 06/04/20 22:15 IMPRESSION: Apparent developing bilateral lower lung interstitial opacities worrisome for pneumonia and differential diagnosis would include viral infections. Abdomen Ultrasound 06/18/20 00:00 IMPRESSION: 1. Unable to visualize the gallbladder. 2. Increased echogenicity of the renal parenchyma which could indicate chronic medical renal disease. There is no hydronephrosis. Assessment and Plan - Diagnosis (1) Pneumonia due to COVID-19 virus Is this a current diagnosis for this admission?: Yes (2) Acute respiratory failure with hypoxia Is this a current diagnosis for this admission?: Yes (3) Bilateral pneumonia Qualifiers: Pneumonia type: due to unspecified organism Lung location: lower lobe of lung Qualified Code(s): J18.9 - Pneumonia, unspecified organism Is this a current diagnosis for this admission?: Yes (4) Anxiety and depression Is this a current diagnosis for this admission?: Yes (5) History of DVT (deep vein thrombosis) Is this a current diagnosis for this admission?: Yes (6) Metastatic lung cancer (metastasis from lung to other site) Qualifiers: Laterality: unspecified laterality Qualified Code(s): C34.90 - Malignant neoplasm of unspecified part of unspecified bronchus or lung Is this a current diagnosis for this admission?: Yes (7) Person under investigation for COVID-19 Is this a current diagnosis for this admission?: Yes (8) Stage 4 lung cancer Qualifiers: Laterality: unspecified laterality Qualified Code(s): C34.90 - Malignant neoplasm of unspecified part of unspecified bronchus or lung Is this a current diagnosis for this admission?: Yes (9) Thrombocytopenia Is this a current diagnosis for this admission?: Yes - Plan Summary Summary: (1) Pneumonia due to COVID-19 virus Per Previous Physician: "s/p 5 days of Remdesivir s/p covalesent plasma Dexamethasone day 10 Received 5 days of Vanc Cefepime initially as well. Unfortunately, patient's stage IV metastatic lung cancer and elderly age are poor prognostic indicators for patient's outcome. We will continue to support and wean off oxygen as tolerated" Wean oxygen as able, extremely slow recovery, rising oxygen requirements intermittently Started ivermectin/doxycycline/vitamin supplements on 06/17 for worsening ox ygen requirements, notable improvement in inflammatory labs and clinically (2) Acute respiratory failure with hypoxia Per Previous Physician: "Due to COVID-19. Oxygenation is adequate on HFNC 100%/50 L. SPO2 seems to be in the high 90s. We will attempt to wean FiO2 down to 80% if tolerated with goal SPO2 above 90% and above." Continue supplemental oxygen (3) Stage 4 lung cancer Qualifiers: Laterality: unspecified laterality Qualified Code(s): C34.90 - Malignant neoplasm of unspecified part of unspecified bronchus or lung Is this a current diagnosis for this admission?: Yes Plan: Per Previous Physician: "Metastatic lung cancer with metastasis to liver and bone. Follows with oncologist in [place] Dr. Viera. Last chemo was 3 weeks prior to admission. Continue pain regimen for treatment of cancer related pain Bowel regimen" In remission per patient (4) History of DVT (deep vein thrombosis) Is this a current diagnosis for this admission?: Yes Plan: Per Previous Physician: "Upper extremity DVT due to Port-A-Cath. Continue therapeutic Lovenox. On Eliquis at home. DOC2RN order in place on not holding Lovenox doses w/o notifying physician." Do not stop Lovenox unless platelets fall below 50 or active significant bleeding (5) Thrombocytopenia Is this a current diagnosis for this admission?: Yes (6) Anxiety and depression Is this a current diagnosis for this admission?: Yes - Time Time Spent with patient: 35 or more minutes Medications reviewed and adjusted accordingly: Yes Anticipated Discharge Disposition: [facility] Facility Anticipated Discharge Timeframe: within 72 hours - Inpatient Certification Based on my medical assessment, after consideration of the patient's comorbidities, presenting symptoms, or acuity I expect that the services needed warrant INPATIENT care.: Yes I certify that my determination is in accordance with my understanding of Medicare's requirements for reasonable and necessary INPATIENT services [42 CFR 412.3e].: Yes Medical Necessity: Significant Comorbidiites Make Outpatient Treatment Too Risky, Need Close Monitoring Due to Risk of Patient Decompensation, Need For Continuous Telemetry Monitoring, Need for Nebulizer Therapy and Monitoring of Response, Risk of Complication if Not Cared For in Hospital, Risk of Diagnosis Which Will Require Inpatient Eval/Care/Monitoring
[2020-06-19] MEDS: ALPRAZOLAM 0.5 MG TABLET PO SCH ×3 (05:32→22:42)
[2020-06-19] MEDS: FAMOTIDINE INJ/PF 20 MG/2 ML SDV IV SCH (05:32)
[2020-06-19] MEDS: ACETAMINOPHEN 325 MG TABLET PO PRN (08:03)
[2020-06-19] MEDS: CHOLECALCIFEROL (D3) 1,000 UNIT (25 MCG) TABLET PO SCH (11:00)
[2020-06-19] MEDS: DOCUSATE SODIUM 100 MG CAPSULE PO SCH ×2 (11:00→17:16)
[2020-06-19] MEDS: ZINC SULFATE 220 MG CAPSULE PO SCH (11:00)
[2020-06-19] MEDS: AMLODIPINE BESYLATE 5 MG TABLET PO SCH (11:00)
[2020-06-19] MEDS: ESCITALOPRAM OXALATE 10 MG TABLET PO SCH (11:00)
[2020-06-19] MEDS: DEXAMETHASONE SOD PHOSPHATE INJ 4 MG/1 ML VIAL IV SCH ×2 (11:00→22:42)
[2020-06-19] MEDS: ASCORBIC ACID 500 MG TABLET PO SCH ×2 (11:00→17:17)
[2020-06-19] MEDS: ENOXAPARIN SODIUM INJ 80 MG/0.8 ML DISP.SYRIN SUBCUT SCH ×2 (11:01→22:43)
[2020-06-19] MEDS: DOXYCYCLINE HYCLATE 100 MG in DEXTROSE 5%-WATER 250 ML IV SCH (12:54)
[2020-06-19] MEDS: OXYCODONE HCL IR 5 MG TABLET PO PRN ×2 (13:56→22:43)
--- NOTE | 2020-06-19 16:48 | PDOC PROGRESS REPORT ---
Subjective Subjective:: Per Previous Physician: "RADHA GAUTAM is a 69 year old female with a history 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 She has been on high-dose prednisone and is being weaned at this point, currently down to 40 mg a day. She was hoping to get wean down further off of steroids so she can restart chemo. She is also received 30 radiation treatments. Her oncologist is in [place], a Dr. Viera. She does not know the name of the chemo drugs she was on. She said she was in the hospital about a month ago with a pneumonia and has not been on chemo since then. Her was admitted to the hospital on 17 May with a stroke and was sent to [facility]. He has since been in acute rehab. She has been to that hospital every day and to acute rehab to visit him. She says that she has followed all the appropriate precautions. She said that she is always had some trouble breathing but she feels like it got worse the day after Thanksgiving. She says that she typically gets a little short of breath when she does something simple such as [place], but it has gotten worse and now she is even short of breath at rest. She does not think she has been running a fever. She always has a little bit of a dry cough and it does not seem to be in much different than usual. She is not on oxygen at home. She came in here hypoxic and short of breath and had to be put on BiPAP. She got a dose of dexamethasone and some Rocephin and Zithromax. She has not been tested for coronavirus outside the hospital but the test was ordered while she was in the ER." 06/16/2020 Patient appears to be relatively stable at the moment nursing states she is very slowly and very gradually lowering oxygen requirements, however the patient frequently becomes hypoxemic severely with exertion. She is still maintained on high flow nasal cannula with a saturation approximately 94% on 65% FiO2 nasal cannula. Patient will need to improve substantially to be able to be discharged to a rehab facility or LTAC. 06/17/2020 Patient seems to be doing bit worse today and has gradually increasing oxygen requirements over the past few days. She is likely beyond the active viral infection phase of the disease and is now on the inflammatory phase which can persist for multiple weeks. In light of this worsening, I have started her on ivermectin/doxycycline/vitamin supplements. 06/18/2020 Since patient was started on ivermectin protocol, she has seen a significant improvement in her breathing as well as her inflammatory labs. She is still nowhere near baseline and still feels quite poorly I believe she may be turning a corner and may actually improve enough to leave the hospital eventually. This will likely be several days from now if it occurs. D-dimer, ferritin, CRP are all significantly lower today. Right upper quadrant ultrasound did not show any acute findings but could not visualize the gallbladder specifically. Suspect gastritis versus stomach ulcer and patient was started on H2 christiano 06/19/2020 Patient still complaining of abdominal pain intermittently when she eats. Per chart, she has not had a bowel movement for the last 5 days. I discussed with nursing that we will give the patient oral Dulcolax, then rectal Dulcolax, then enema and that order if she does not have a bowel movement at each of the stages. She could also have a developing gastric ulcer or gastritis as I mentioned previously no change to H2 christiano to Protonix IV. We can get an H. pylori stool antigen as well. Reason For Visit: ACUTE RESPIRATORY FAILURE BILATERAL PNUEMONIA,PUI Physical Exam Vital Signs: Temp Pulse Resp BP Pulse Ox 97.5 F 78 24 H 110/72 95 06/19/20 03:38 06/19/20 07:00 06/19/20 03:38 06/19/20 03:38 06/19/20 09:28 Intake & Output 06/18/20 06/19/20 06/20/20 06:59 06:59 06:59 Intake Total 350 250 Output Total 700 800 Balance -350 -550 Weight 69.3 kg 68.3 kg Results Laboratory Results: 06/18/20 05:55 06/18/20 05:55 06/04/20 20:55 Troponin I < 0.012 NT-Pro-B Natriuret Pep 477 H Impressions: Chest X-Ray 06/04/20 22:15 IMPRESSION: Apparent developing bilateral lower lung interstitial opacities worrisome for pneumonia and differential diagnosis would include viral infections. Abdomen Ultrasound 06/18/20 00:00 IMPRESSION: 1. Unable to visualize the gallbladder. 2. Increased echogenicity of the renal parenchyma which could indicate chronic medical renal disease. There is no hydronephrosis. Assessment and Plan - Diagnosis (1) Pneumonia due to COVID-19 virus Is this a current diagnosis for this admission?: Yes (2) Acute respiratory failure with hypoxia Is this a current diagnosis for this admission?: Yes (3) Bilateral pneumonia Qualifiers: Pneumonia type: due to unspecified organism Lung location: lower lobe of lung Qualified Code(s): J18.9 - Pneumonia, unspecified organism Is this a current diagnosis for this admission?: Yes (4) Anxiety and depression Is this a current diagnosis for this admission?: Yes (5) History of DVT (deep vein thrombosis) Is this a current diagnosis for this admission?: Yes (6) Metastatic lung cancer (metastasis from lung to other site) Qualifiers: Laterality: unspecified laterality Qualified Code(s): C34.90 - Malignant neoplasm of unspecified part of unspecified bronchus or lung Is this a current diagnosis for this admission?: Yes (7) Person under investigation for COVID-19 Is this a current diagnosis for this admission?: Yes (8) Stage 4 lung cancer Qualifiers: Laterality: unspecified laterality Qualified Code(s): C34.90 - Malignant neoplasm of unspecified part of unspecified bronchus or lung Is this a current diagnosis for this admission?: Yes (9) Thrombocytopenia Is this a current diagnosis for this admission?: Yes - Plan Summary Summary: (1) Pneumonia due to COVID-19 virus Per Previous Physician: "s/p 5 days of Remdesivir s/p covalesent plasma Dexamethasone day 10 Received 5 days of Vanc Cefepime initially as well. Unfortunately, patient's stage IV metastatic lung cancer and elderly age are poor prognostic indicators for patient's outcome. We will continue to support and wean off oxygen as tolerated" Wean oxygen as able, extremely slow recovery, rising oxygen requirements intermittently Started ivermectin/doxycycline/vitamin supplements on 06/17 for worsening oxygen requirements, significant improvement in inflammatory labs and clinically Gradually weaning positive pressure medication supplementation (2) Acute respiratory failure with hypoxia Per Previous Physician: "Due to COVID-19. Oxygenation is adequate on HFNC 100%/50 L. SPO2 seems to be in the high 90s. We will attempt to wean FiO2 down to 80% if tolerated with goal SPO2 above 90% and above." Continue supplemental oxygen (3) Stage 4 lung cancer Qualifiers: Laterality: unspecified laterality Qualified Code(s): C34.90 - Malignant neoplasm of unspecified part of unspecified bronchus or lung Is this a current diagnosis for this admission?: Yes Plan: Per Previous Physician: "Metastatic lung cancer with metastasis to liver and bone. Follows with oncologist in [place] Dr. Viear. Last chemo was 3 weeks prior to admission. Continue pain regimen for treatment of cancer related pain Bowel regimen" In remission per patient (4) History of DVT (deep vein thrombosis) Is this a current diagnosis for this admission?: Yes Plan: Per Previous Physician: "Upper extremity DVT due to Port-A-Cath. Continue therapeutic Lovenox. On Eliquis at home. DOC2RN order in place on not holding Lovenox doses w/o notifying physician." Do not stop Lovenox unless platelets fall below 50 or active significant bleeding (5) Thrombocytopenia Is this a current diagnosis for this admission?: Yes (6) Anxiety and depression Is this a current diagnosis for this admission?: Yes - Time Time Spent with patient: 35 or more minutes Medications reviewed and adjusted accordingly: Yes Anticipated Discharge Disposition: [facility] Facility Anticipated Discharge Timeframe: within 72 hours - Inpatient Certification Based on my medical assessment, after consideration of the patient's comorbidities, presenting symptoms, or acuity I expect that the services needed warrant INPATIENT care.: Yes I certify that my determination is in accordance with my understanding of Medicare's requirements for reasonable and necessary INPATIENT services [42 CFR 412.3e].: Yes Medical Necessity: Significant Comorbidiites Make Outpatient Treatment Too Risky, Need Close Monitoring Due to Risk of Patient Decompensation, Risk of Complication if Not Cared For in Hospital, Risk of Diagnosis Which Will Require Inpatient Eval/Care/Monitoring
[2020-06-19] MEDS: PANTOPRAZOLE SODIUM 40 MG VIAL IV SCH (22:42)
[2020-06-20] MEDS: ALPRAZOLAM 0.5 MG TABLET PO SCH ×3 (06:00→21:37)
[2020-06-20 06:56] LABS: HEMATOCRIT 43.8 % (36.0-47.0); HEMOGLOBIN 15.1 g/dL (12.0-15.5); MEAN CORPUSCULAR HEMOGLOBIN 30.1 pg (27.0-33.4); MEAN CORPUSCULAR HGB CONC 34.5 g/dL (32.0-36.0); MEAN CORPUSCULAR VOLUME 87 fl (80-97); PLATELET COUNT 126 10^3/uL (150-450); RED BLOOD COUNT 5.02 10^6/uL (3.72-5.28); RED CELL DISTRIBUTION WIDTH 19.4 % (11.5-14.0); WHITE BLOOD COUNT 9.8 10^3/uL (4.0-10.5)
[2020-06-20 07:26] LABS: ABSOLUTE LYMPHOCYTES# (MANUAL) 0.2 10^3/uL (0.5-4.7); ABSOLUTE MONOCYTES # (MANUAL) 0.3 10^3/uL (0.1-1.4); ANISOCYTOSIS 2+; BASOPHILS % (MANUAL) 0 % (0-2); EOSINOPHILS % (MANUAL) 0 % (0-6); LYMPHOCYTES % (MANUAL) 0 % (13-45); MONOCYTES % (MANUAL) 3 % (3-13); PLATELET COMMENT DECREASED; SEGMENTED NEUTROPHILS % (MAN) 95 % (42-78); TOTAL CELLS COUNTED 100
[2020-06-20 07:27] LABS: OVALOCYTES 1+; POIKILOCYTOSIS 1+; POLYCHROMASIA SLIGHT
[2020-06-20 07:37] LABS: ANION GAP 5 (5-19); BLOOD UREA NITROGEN 32 mg/dL (7-20); C-REACTIVE PROTEIN 7.9 mg/L (<10.0); CALCIUM 8.5 mg/dL (8.4-10.2); CARBON DIOXIDE 31 mmol/L (22-30); CHLORIDE 95 mmol/L (98-107); GLUCOSE 101 mg/dL (75-110); POTASSIUM 4.4 mmol/L (3.6-5.0)
[2020-06-20] MEDS: PANTOPRAZOLE SODIUM 40 MG VIAL IV SCH ×2 (10:05→21:37)
[2020-06-20] MEDS: DOCUSATE SODIUM 100 MG CAPSULE PO SCH ×2 (10:05→17:07)
[2020-06-20] MEDS: CHOLECALCIFEROL (D3) 1,000 UNIT (25 MCG) TABLET PO SCH (10:05)
[2020-06-20] MEDS: ASCORBIC ACID 500 MG TABLET PO SCH ×2 (10:05→17:07)
[2020-06-20] MEDS: AMLODIPINE BESYLATE 5 MG TABLET PO SCH (10:05)
[2020-06-20] MEDS: ENOXAPARIN SODIUM INJ 80 MG/0.8 ML DISP.SYRIN SUBCUT SCH ×2 (10:06→21:37)
[2020-06-20] MEDS: ZINC SULFATE 220 MG CAPSULE PO SCH (10:06)
[2020-06-20] MEDS: ESCITALOPRAM OXALATE 10 MG TABLET PO SCH (10:06)
[2020-06-20] MEDS: DEXAMETHASONE SOD PHOSPHATE INJ 4 MG/1 ML VIAL IV SCH ×2 (10:06→21:37)
[2020-06-20] MEDS: DOXYCYCLINE HYCLATE 100 MG in DEXTROSE 5%-WATER 250 ML IV SCH (12:33)
[2020-06-20] MEDS: ACETAMINOPHEN 325 MG TABLET PO PRN (16:29)
--- NOTE | 2020-06-20 18:06 | PDOC PROGRESS REPORT ---
Subjective Subjective:: Per Previous Physician: "RADHA GAUTAM is a 69 year old female with a history 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 She has been on high-dose prednisone and is being weaned at this point, currently down to 40 mg a day. She was hoping to get wean down further off of steroids so she can restart chemo. She is also received 30 radiation treatments. Her oncologist is in [place], a Dr. Viera. She does not know the name of the chemo drugs she was on. She said she was in the hospital about a month ago with a pneumonia and has not been on chemo since then. Her was admitted to the hospital on 17 May with a stroke and was sent to [facility]. He has since been in acute rehab. She has been to that hospital every day and to acute rehab to visit him. She says that she has followed all the appropriate precautions. She said that she is always had some trouble breathing but she feels like it got worse the day after Thanksgiving. She says that she typically gets a little short of breath when she does something simple such as [place], but it has gotten worse and now she is even short of breath at rest. She does not think she has been running a fever. She always has a little bit of a dry cough and it does not seem to be in much different than usual. She is not on oxygen at home. She came in here hypoxic and short of breath and had to be put on BiPAP. She got a dose of dexamethasone and some Rocephin and Zithromax. She has not been tested for coronavirus outside the hospital but the test was ordered while she was in the ER." 06/16/2020 Patient appears to be relatively stable at the moment nursing states she is very slowly and very gradually lowering oxygen requirements, however the patient frequently becomes hypoxemic severely with exertion. She is still maintained on high flow nasal cannula with a saturation approximately 94% on 65% FiO2 nasal cannula. Patient will need to improve substantially to be able to be discharged to a rehab facility or LTAC. 06/17/2020 Patient seems to be doing bit worse today and has gradually increasing oxygen requirements over the past few days. She is likely beyond the active viral infection phase of the disease and is now on the inflammatory phase which can persist for multiple weeks. In light of this worsening, I have started her on ivermectin/doxycycline/vitamin supplements. 06/18/2020 Since patient was started on ivermectin protocol, she has seen a significant improvement in her breathing as well as her inflammatory labs. She is still nowhere near baseline and still feels quite poorly I believe she may be turning a corner and may actually improve enough to leave the hospital eventually. This will likely be several days from now if it occurs. D-dimer, ferritin, CRP are all significantly lower today. Right upper quadrant ultrasound did not show any acute findings but could not visualize the gallbladder specifically. Suspect gastritis versus stomach ulcer and patient was started on H2 christinao 06/19/2020 Patient still complaining of abdominal pain intermittently when she eats. Per chart, she has not had a bowel movement for the last 5 days. I discussed with nursing that we will give the patient oral Dulcolax, then rectal Dulcolax, then enema and that order if she does not have a bowel movement at each of the stages. She could also have a developing gastric ulcer or gastritis as I mentioned previously no change to H2 christiano to Protonix IV. We can get an H. pylori stool antigen as well. 06/20/2020 Patient is being maintained on 15 L nasal cannula. She has multiple episodes of anxiety and air hunger throughout the day though her oxygen needs have somewhat leveled off to some degree. She stated today she wants to be DNR/DNI and the nurses have documented this discussion. Today, she got upset and was demanding to be sent home with home oxygen in hospital bed. I spoke with her at great length and told her this course of disease takes a very long time to reach recovery and that many other patients are going for the same thing as her. I added IV Dilaudid for air hunger and Breo inhaled steroid to treat lung inflamm ation. Reason For Visit: ACUTE RESPIRATORY FAILURE BILATERAL PNUEMONIA,PUI Physical Exam Vital Signs: Temp Pulse Resp BP Pulse Ox 97.3 F 97 20 130/84 H 88 L 06/20/20 16:36 06/20/20 16:36 06/20/20 16:36 06/20/20 16:36 06/20/20 16:36 Intake & Output 06/19/20 06/20/20 06/21/20 06:59 06:59 06:59 Intake Total 250 250 Output Total 800 290 Balance -550 -40 Weight 68.3 kg 68 kg Exam: General appearance: PRESENT: no acute distress, well-developed, well-nourished, ill-appearing elderly white female, somewhat anxious but not in respiratory distress Head exam: PRESENT: atraumatic, normocephalic Eye exam: PRESENT: conjunctiva pink. ABSENT: scleral icterus Mouth exam: PRESENT: moist Respiratory exam: PRESENT: mild wheeze ABSENT: rales, rhonchi Cardiovascular exam: PRESENT: RRR. ABSENT: diastolic murmur, rubs, systolic murmur GI/Abdominal exam: PRESENT: normal bowel sounds, soft. ABSENT: distended, guarding, mass, organolmegaly, rebound, tenderness Neurological exam: PRESENT: alert, awake, oriented to person, oriented to place, oriented to time, oriented to situation Psychiatric exam: PRESENT: appropriate affect, normal mood Skin exam: PRESENT: dry, intact, warm Results Laboratory Results: 06/20/20 06:30 06/20/20 06:30 06/20/20 06/20/20 06:30 06:30 WBC 9.8 RBC 5.02 Hgb 15.1 Hct 43.8 MCV 87 MCH 30.1 MCHC 34.5 RDW 19.4 H Plt Count 126 L Seg Neutrophils % Not Reportable Sodium 130.5 L Potassium 4.4 Chloride 95 L Carbon Dioxide 31 H Anion Gap 5 BUN 32 H Creatinine 0.59 Est GFR ( Amer) > 60 Glucose 101 Calcium 8.5 Ferritin 612.00 H C-Reactive Protein 7.9 06/04/20 20:55 Troponin I < 0.012 NT-Pro-B Natriuret Pep 477 H Impressions: Chest X-Ray 06/04/20 22:15 IMPRESSION: Apparent developing bilateral lower lung interstitial opacities worrisome for pneumonia and differential diagnosis would include viral infections. Abdomen Ultrasound 06/18/20 00:00 IMPRESSION: 1. Unable to visualize the gallbladder. 2. Increased echogenicity of the renal parenchyma which could indicate chronic medical renal disease. There is no hydronephrosis. Assessment and Plan - Diagnosis (1) Pneumonia due to COVID-19 virus Is this a current diagnosis for this admission?: Yes (2) Acute respiratory failure with hypoxia Is this a current diagnosis for this admission?: Yes (3) Bilateral pneumonia Qualifiers: Pneumonia type: due to unspecified organism Lung location: lower lobe of lung Qualified Code(s): J18.9 - Pneumonia, unspecified organism Is this a current diagnosis for this admission?: Yes (4) Anxiety and depression Is this a current diagnosis for this admission?: Yes (5) History of DVT (deep vein thrombosis) Is this a current diagnosis for this admission?: Yes (6) Metastatic lung cancer (metastasis from lung to other site) Qualifiers: Laterality: unspecified laterality Qualified Code(s): C34.90 - Malignant neoplasm of unspecified part of unspecified bronchus or lung Is this a current diagnosis for this admission?: Yes (7) Person under investigation for COVID-19 Is this a current diagnosis for this admission?: Yes (8) Stage 4 lung cancer Qualifiers: Laterality: unspecified laterality Qualified Code(s): C34.90 - Malignant neoplasm of unspecified part of unspecified bronchus or lung Is this a current diagnosis for this admission?: Yes (9) Thrombocytopenia Is this a current diagnosis for this admission?: Yes - Plan Summary Summary: (1) Pneumonia due to COVID-19 virus Per Previous Physician: "s/p 5 days of Remdesivir s/p covalesent plasma Dexamethasone day 10 Received 5 days of Vanc Cefepime initially as well. Unfortunately, patient's stage IV metastatic lung cancer and elderly age are poor prognostic indicators for patient's outcome. We will continue to support and wean off oxygen as tolerated" Wean oxygen as able, extremely slow recovery, rising oxygen requirements intermittently Started ivermectin/doxycycline/vitamin supplements on 06/17 for worsening oxygen requirements, significant improvement in inflammatory labs and clinically Gradually weaning positive pressure medication supplementation (2) Acute respiratory failure with hypoxia Per Previous Physician: "Due to COVID-19. Oxygenation is adequate on HFNC 100%/50 L. SPO2 seems to be in the high 90s. We will attempt to wean FiO2 down to 80% if tolerated with goal SPO2 above 90% and above." Continue supplemental oxygen -ativan and dilaudid IV prn for severe anxiety and air hunger (3) Stage 4 lung cancer Qualifiers: Laterality: unspecified laterality Qualified Code(s): C34.90 - Malignant neoplasm of unspecified part of unspecified bronchus or lung Is this a current diagnosis for this admission?: Yes Plan: Per Previous Physician: "Metastatic lung cancer with metastasis to liver and bone. Follows with oncologist in [place] Dr. Viera. Last chemo was 3 weeks prior to admission. Continue pain regimen for treatment of cancer related pain Bowel regimen" In remission per patient (4) History of DVT (deep vein thrombosis) Is this a current diagnosis for this admission?: Yes Plan: Per Previous Physician: "Upper extremity DVT due to Port-A-Cath. Continue therapeutic Lovenox. On Eliquis at home. DOC2RN order in place on not holding Lovenox doses w/o notifying physician." Do not stop Lovenox unless platelets fall below 50 or active significant bleeding (5) Thrombocytopenia Is this a current diagnosis for this admission?: Yes (6) Anxiety and depression Is this a current diagnosis for this admission?: Yes - Time Time Spent with patient: 35 or more minutes Medications reviewed and adjusted accordingly: Yes Anticipated Discharge Disposition: [facility] Living Facility Anticipated Discharge Timeframe: within 72 hours - Inpatient Certification Based on my medical assessment, after consideration of the patient's comorbidities, presenting symptoms, or acuity I expect that the services needed warrant INPATIENT care.: Yes I certify that my determination is in accordance with my understanding of Medicare's requirements for reasonable and necessary INPATIENT services [42 CFR 412.3e].: Yes Medical Necessity: Significant Comorbidiites Make Outpatient Treatment Too Risky, Need Close Monitoring Due to Risk of Patient Decompensation, Need For Continuous Telemetry Monitoring, Risk of Complication if Not Cared For in Hospital, Risk of Diagnosis Which Will Require Inpatient Eval/Care/Monitoring
[2020-06-20] MEDS: HYDROMORPHONE HCL INJ/PF 2 MG/ML AMPULE IV PRN (19:57)
[2020-06-20] MEDS: FLUTICASONE/VILANTEROL 100-25 MCG/DOSE IH SCH (21:36)
[2020-06-21] MEDS: HYDROMORPHONE HCL INJ/PF 2 MG/ML AMPULE IV PRN ×3 (00:45→11:06)
[2020-06-21] MEDS: ALPRAZOLAM 0.5 MG TABLET PO SCH ×3 (05:15→22:01)
[2020-06-21] MEDS: OXYCODONE HCL IR 5 MG TABLET PO PRN ×2 (05:15→20:32)
[2020-06-21] MEDS ORDERED: BISACODYL 5 MG TABEC PO ONE (09:50)
[2020-06-21] MEDS: FLUTICASONE/VILANTEROL 100-25 MCG/DOSE IH SCH (10:00)
[2020-06-21] MEDS: CHOLECALCIFEROL (D3) 1,000 UNIT (25 MCG) TABLET PO SCH (10:02)
[2020-06-21] MEDS: DOCUSATE SODIUM 100 MG CAPSULE PO SCH ×2 (10:02→18:20)
[2020-06-21] MEDS: DEXAMETHASONE SOD PHOSPHATE INJ 4 MG/1 ML VIAL IV SCH ×2 (10:03→22:02)
[2020-06-21] MEDS: ZINC SULFATE 220 MG CAPSULE PO SCH (10:03)
[2020-06-21] MEDS: PANTOPRAZOLE SODIUM 40 MG VIAL IV SCH ×2 (10:03→22:02)
[2020-06-21] MEDS: ESCITALOPRAM OXALATE 10 MG TABLET PO SCH (10:03)
[2020-06-21] MEDS: ENOXAPARIN SODIUM INJ 80 MG/0.8 ML DISP.SYRIN SUBCUT SCH ×2 (10:03→22:00)
[2020-06-21] MEDS: ASCORBIC ACID 500 MG TABLET PO SCH ×2 (10:03→18:20)
[2020-06-21] MEDS: AMLODIPINE BESYLATE 5 MG TABLET PO SCH (10:03)
[2020-06-21] MEDS: DOXYCYCLINE HYCLATE 100 MG in DEXTROSE 5%-WATER 250 ML IV SCH (12:21)
--- NOTE | 2020-06-21 15:36 | RADIOLOGY REPORT (SQ) ---
EXAM DESCRIPTION: KUB/ABDOMEN (SINGLE VIEW) IMAGES COMPLETED DATE/TIME: 06/21/2020 1:48 pm REASON FOR STUDY: abdominal pain COMPARISON: None. NUMBER OF VIEWS: One view. TECHNIQUE: Supine radiographic image of the abdomen acquired. LIMITATIONS: None. FINDINGS: BOWEL GAS PATTERN: Normal bowel gas pattern. No dilated loops. CALCIFICATIONS: No suspicious calcifications. SOFT TISSUES: No gross mass or suggestion of organomegaly. HARDWARE: None in the abdomen. BONES: No acute fracture. No worrisome bone lesions. OTHER: No other significant finding. IMPRESSION: NO RADIOGRAPHIC EVIDENCE FOR ACUTE ABDOMINAL DISEASE. TECHNICAL DOCUMENTATION: JOB ID: [id number] 2010 [employer]- All Rights Reserved Reading location - IP/workstation name: [email or web address]
--- NOTE | 2020-06-21 17:47 | PDOC PROGRESS REPORT ---
Subjective Subjective:: Per Previous Physician: "RADHA GAUTAM is a 69 year old female with a history 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 She has been on high-dose prednisone and is being weaned at this point, currently down to 40 mg a day. She was hoping to get wean down further off of steroids so she can restart chemo. She is also received 30 radiation treatments. Her oncologist is in [place], a Dr. Viera. She does not know the name of the chemo drugs she was on. She said she was in the hospital about a month ago with a pneumonia and has not been on chemo since then. Her was admitted to the hospital on 17 May with a stroke and was sent to [facility]. He has since been in acute rehab. She has been to that hospital every day and to acute rehab to visit him. She says that she has followed all the appropriate precautions. She said that she is always had some trouble breathing but she feels like it got worse the day after Thanksgiving. She says that she typically gets a little short of breath when she does something simple such as [place], but it has gotten worse and now she is even short of breath at rest. She does not think she has been running a fever. She always has a little bit of a dry cough and it does not seem to be in much different than usual. She is not on oxygen at home. She came in here hypoxic and short of breath and had to be put on BiPAP. She got a dose of dexamethasone and some Rocephin and Zithromax. She has not been tested for coronavirus outside the hospital but the test was ordered while she was in the ER." 06/16/2020 Patient appears to be relatively stable at the moment nursing states she is very slowly and very gradually lowering oxygen requirements, however the patient frequently becomes hypoxemic severely with exertion. She is still maintained on high flow nasal cannula with a saturation approximately 94% on 65% FiO2 nasal cannula. Patient will need to improve substantially to be able to be discharged to a rehab facility or LTAC. 06/17/2020 Patient seems to be doing bit worse today and has gradually increasing oxygen requirements over the past few days. She is likely beyond the active viral infection phase of the disease and is now on the inflammatory phase which can persist for multiple weeks. In light of this worsening, I have started her on ivermectin/doxycycline/vitamin supplements. 06/18/2020 Since patient was started on ivermectin protocol, she has seen a significant improvement in her breathing as well as her inflammatory labs. She is still nowhere near baseline and still feels quite poorly I believe she may be turning a corner and may actually improve enough to leave the hospital eventually. This will likely be several days from now if it occurs. D-dimer, ferritin, CRP are all significantly lower today. Right upper quadrant ultrasound did not show any acute findings but could not visualize the gallbladder specifically. Suspect gastritis versus stomach ulcer and patient was started on H2 christiano 06/19/2020 Patient still complaining of abdominal pain intermittently when she eats. Per chart, she has not had a bowel movement for the last 5 days. I discussed with nursing that we will give the patient oral Dulcolax, then rectal Dulcolax, then enema and that order if she does not have a bowel movement at each of the stages. She could also have a developing gastric ulcer or gastritis as I mentioned previously no change to H2 christiano to Protonix IV. We can get an H. pylori stool antigen as well. 06/20/2020 Patient is being maintained on 15 L nasal cannula. She has multiple episodes of anxiety and air hunger throughout the day though her oxygen needs have somewhat leveled off to some degree. She stated today she wants to be DNR/DNI and the nurses have documented this discussion. Today, she got upset and was demanding to be sent home with home oxygen in hospital bed. I spoke with her at great length and told her this course of disease takes a very long time to reach recovery and that many other patients are going for the same thing as her. I added IV Dilaudid for air hunger and Breo inhaled steroid to treat lung inflamm ation. 06/21/2020 We are still trying to wean the patient from oxygen and positive pressure. She seems to be plateaued at 15 L with a saturation maintained at 91%. Her respiratory culture grew gram-negative magdalena that appeared to be a subtype of Moraxella though microbiology lab stated this could be normal gladis. Patient made herself DNR/DNI yesterday. She has not made any comments about being comfort measures today and she seems rather calm. I believe she is constipated and we ordered a KUB that did not show any acute abdominal findings. He states that when she eats her abdomen hurts. She has been placed on IV PPI and I have ordered H. pylori stool antigen though she has not had a bowel movement in several days. She is being given oral and rectal Dulcolax and I have ordered an enema to be given as well. I discussed all this with nursing. Reason For Visit: ACUTE RESPIRATORY FAILURE BILATERAL PNUEMONIA,PUI Physical Exam Vital Signs: Temp Pulse Resp BP Pulse Ox 97.5 F 85 18 108/76 95 06/21/20 11:46 06/21/20 14:00 06/21/20 11:46 06/21/20 11:46 06/21/20 11:46 Intake & Output 06/20/20 06/21/20 06/22/20 06:59 06:59 06:59 Intake Total 250 250 100 Output Total 290 Balance -40 250 100 Weight 68 kg 66 kg Exam: General appearance: PRESENT: no acute distress, well-developed, well-nourished, ill-appearing elderly white female, calm today Head exam: PRESENT: atraumatic, normocephalic Eye exam: PRESENT: conjunctiva pink. ABSENT: scleral icterus Mouth exam: PRESENT: moist Respiratory exam: PRESENT: mild wheeze ABSENT: rales, rhonchi Cardiovascular exam: PRESENT: RRR. ABSENT: diastolic murmur, rubs, systolic murmur GI/Abdominal exam: PRESENT: normal bowel sounds, soft. ABSENT: distended, guarding, mass, organolmegaly, rebound, tenderness Neurological exam: PRESENT: alert, awake, oriented to person, oriented to place, oriented to time, oriented to situation Psychiatric exam: PRESENT: appropriate affect, normal mood Skin exam: PRESENT: dry, intact, warm Results Laboratory Results: 06/20/20 06:30 06/20/20 06:30 06/21/20 06/21/20 05:24 05:24 Ferritin 665.00 H C-Reactive Protein 8.6 06/04/20 20:55 Troponin I < 0.012 NT-Pro-B Natriuret Pep 477 H Impressions: Chest X-Ray 06/04/20 22:15 IMPRESSION: Apparent developing bilateral lower lung interstitial opacities worrisome for pneumonia and differential diagnosis would include viral infections. Abdomen Ultrasound 06/18/20 00:00 IMPRESSION: 1. Unable to visualize the gallbladder. 2. Increased echogenicity of the renal parenchyma which could indicate chronic medical renal disease. There is no hydronephrosis. KUB X-Ray 06/21/20 00:00 IMPRESSION: NO RADIOGRAPHIC EVIDENCE FOR ACUTE ABDOMINAL DISEASE. Assessment and Plan - Diagnosis (1) Pneumonia due to COVID-19 virus Is this a current diagnosis for this admission?: Yes (2) Acute respiratory failure with hypoxia Is this a current diagnosis for this admission?: Yes (3) Bilateral pneumonia Qualifiers: Pneumonia type: due to unspecified organism Lung location: lower lobe of lung Qualified Code(s): J18.9 - Pneumonia, unspecified organism Is this a current diagnosis for this admission?: Yes (4) Anxiety and depression Is this a current diagnosis for this admission?: Yes (5) History of DVT (deep vein thrombosis) Is this a current diagnosis for this admission?: Yes (6) Metastatic lung cancer (metastasis from lung to other site) Qualifiers: Laterality: unspecified laterality Qualified Code(s): C34.90 - Malignant neoplasm of unspecified part of unspecified bronchus or lung Is this a current diagnosis for this admission?: Yes (7) Person under investigation for COVID-19 Is this a current diagnosis for this admission?: Yes (8) Stage 4 lung cancer Qualifiers: Laterality: unspecified laterality Qualified Code(s): C34.90 - Malignant neoplasm of unspecified part of unspecified bronchus or lung Is this a current diagnosis for this admission?: Yes (9) Thrombocytopenia Is this a current diagnosis for this admission?: Yes - Plan Summary Summary: (1) Pneumonia due to COVID-19 virus Per Previous Physician: "s/p 5 days of Remdesivir s/p covalesent plasma Dexamethasone day 10 Received 5 days of Vanc Cefepime initially as well. Unfortunately, patient's stage IV metastatic lung cancer and elderly age are poor prognostic indicators for patient's outcome. We will continue to support and wean off oxygen as tolerated" Wean oxygen as able, extremely slow recovery, rising oxygen requirements intermittently Started ivermectin/doxycycline/vitamin supplements on 06/17 for worsening oxygen requirements, significant improvement in inflammatory labs and clinically Gradually weaning positive pressure medication supplementation (2) Acute respiratory failure with hypoxia Per Previous Physician: "Due to COVID-19. Oxygenation is adequate on HFNC 100%/50 L. SPO2 seems to be in the high 90s. We will attempt to wean FiO2 down to 80% if tolerated with goal SPO2 above 90% and above." Continue supplemental oxygen -ativan and dilaudid IV prn for severe anxiety and air hunger (3) Stage 4 lung cancer Qualifiers: Laterality: unspecified laterality Qualified Code(s): C34.90 - Malignant neoplasm of unspecified part of unspecified bronchus or lung Is this a current diagnosis for this admission?: Yes Plan: Per Previous Physician: "Metastatic lung cancer with metastasis to liver and bone. Follows with oncologist in [place] Dr. Viera. Last chemo was 3 weeks prior to admission. Continue pain regimen for treatment of cancer related pain Bowel regimen" In remission per patient (4) History of DVT (deep vein thrombosis) Is this a current diagnosis for this admission?: Yes Plan: Per Previous Physician: "Upper extremity DVT due to Port-A-Cath. Continue therapeutic Lovenox. On Eliquis at home. DOC2RN order in place on not holding Lovenox doses w/o notifying physician." Do not stop Lovenox unless platelets fall below 50 or active significant bleeding (5) Thrombocytopenia Is this a current diagnosis for this admission?: Yes (6) Anxiety and depression Is this a current diagnosis for this admission?: Yes (7) constipation Oral and rectal Dulcolax, enema - Time Time Spent with patient: 35 or more minutes Medications reviewed and adjusted accordingly: Yes Anticipated Discharge Disposition: [facility] Anticipated Discharge Timeframe: within 72 hours - Inpatient Certification Based on my medical assessment, after consideration of the patient's co morbidities, presenting symptoms, or acuity I expect that the services needed warrant INPATIENT care.: Yes I certify that my determination is in accordance with my understanding of Medicare's requirements for reasonable and necessary INPATIENT services [42 CFR 412.3e].: Yes Medical Necessity: Significant Comorbidiites Make Outpatient Treatment Too Risky, Need Close Monitoring Due to Risk of Patient Decompensation, Risk of Complication if Not Cared For in Hospital, Risk of Diagnosis Which Will Require Inpatient Eval/Care/Monitoring
[2020-06-21] MEDS: LORAZEPAM INJ 2 MG/1 ML VIAL IV PRN (22:01)
[2020-06-22] MEDS: HYDROMORPHONE HCL INJ/PF 2 MG/ML AMPULE IV PRN ×2 (04:49→17:23)
[2020-06-22] MEDS: ALPRAZOLAM 0.5 MG TABLET PO SCH ×3 (06:14→21:34)
[2020-06-22 07:57] LABS: HEMATOCRIT 40.5 % (36.0-47.0); MEAN CORPUSCULAR HEMOGLOBIN 30.2 pg (27.0-33.4); MEAN CORPUSCULAR HGB CONC 34.6 g/dL (32.0-36.0); MEAN CORPUSCULAR VOLUME 87 fl (80-97); PLATELET COUNT 112 10^3/uL (150-450); RED BLOOD COUNT 4.63 10^6/uL (3.72-5.28); RED CELL DISTRIBUTION WIDTH 19.9 % (11.5-14.0); WHITE BLOOD COUNT 8.8 10^3/uL (4.0-10.5)
[2020-06-22 08:25] LABS: ABSOLUTE LYMPHOCYTES# (MANUAL) 0.4 10^3/uL (0.5-4.7); ABSOLUTE MONOCYTES # (MANUAL) 0.1 10^3/uL (0.1-1.4); BASOPHILS % (MANUAL) 0 % (0-2); EOSINOPHILS % (MANUAL) 0 % (0-6); LYMPHOCYTES % (MANUAL) 4 % (13-45); MONOCYTES % (MANUAL) 1 % (3-13); SEGMENTED NEUTROPHILS % (MAN) 94 % (42-78); TOTAL CELLS COUNTED 100
[2020-06-22 08:26] LABS: ANISOCYTOSIS 1+; OVALOCYTES SLIGHT; PLATELET CLUMPS PRESENT; PLATELET COMMENT DECREASED; POIKILOCYTOSIS SLIGHT
[2020-06-22 08:52] LABS: ANION GAP 5 (5-19); BLOOD UREA NITROGEN 40 mg/dL (7-20); CALCIUM 8.5 mg/dL (8.4-10.2); CARBON DIOXIDE 31 mmol/L (22-30); CHLORIDE 97 mmol/L (98-107); GLUCOSE 109 mg/dL (75-110); POTASSIUM 4.5 mmol/L (3.6-5.0)
[2020-06-22] MEDS: FLUTICASONE/VILANTEROL 100-25 MCG/DOSE IH SCH (10:00)
[2020-06-22] MEDS: DEXAMETHASONE SOD PHOSPHATE INJ 4 MG/1 ML VIAL IV SCH ×2 (10:09→21:34)
[2020-06-22] MEDS: ENOXAPARIN SODIUM INJ 80 MG/0.8 ML DISP.SYRIN SUBCUT SCH ×2 (10:09→21:34)
[2020-06-22] MEDS: PANTOPRAZOLE SODIUM 40 MG VIAL IV SCH (10:09)
[2020-06-22] MEDS: ZINC SULFATE 220 MG CAPSULE PO SCH (10:09)
[2020-06-22] MEDS: ASCORBIC ACID 500 MG TABLET PO SCH ×2 (10:09→17:26)
[2020-06-22] MEDS: CHOLECALCIFEROL (D3) 1,000 UNIT (25 MCG) TABLET PO SCH (10:09)
[2020-06-22] MEDS: ESCITALOPRAM OXALATE 10 MG TABLET PO SCH (10:09)
[2020-06-22] MEDS: DOCUSATE SODIUM 100 MG CAPSULE PO SCH ×2 (10:09→17:26)
[2020-06-22] MEDS: AMLODIPINE BESYLATE 5 MG TABLET PO SCH (10:09)
[2020-06-22] MEDS: LORAZEPAM INJ 2 MG/1 ML VIAL IV PRN ×2 (10:11→21:34)
[2020-06-22] MEDS: DOXYCYCLINE HYCLATE 100 MG in DEXTROSE 5%-WATER 250 ML IV SCH (14:00)
--- NOTE | 2020-06-22 17:44 | PDOC PROGRESS REPORT ---
Subjective Subjective:: Per Previous Physician: "RADHA GAUTAM is a 69 year old female with a history 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 She has been on high-dose prednisone and is being weaned at this point, currently down to 40 mg a day. She was hoping to get wean down further off of steroids so she can restart chemo. She is also received 30 radiation treatments. Her oncologist is in [place], a Dr. Viera. She does not know the name of the chemo drugs she was on. She said she was in the hospital about a month ago with a pneumonia and has not been on chemo since then. Her was admitted to the hospital on 17 May with a stroke and was sent to [facility]. He has since been in acute rehab. She has been to that hospital every day and to acute rehab to visit him. She says that she has followed all the appropriate precautions. She said that she is always had some trouble breathing but she feels like it got worse the day after Thanksgiving. She says that she typically gets a little short of breath when she does something simple such as [place], but it has gotten worse and now she is even short of breath at rest. She does not think she has been running a fever. She always has a little bit of a dry cough and it does not seem to be in much different than usual. She is not on oxygen at home. She came in here hypoxic and short of breath and had to be put on BiPAP. She got a dose of dexamethasone and some Rocephin and Zithromax. She has not been tested for coronavirus outside the hospital but the test was ordered while she was in the ER." 06/16/2020 Patient appears to be relatively stable at the moment nursing states she is very slowly and very gradually lowering oxygen requirements, however the patient frequently becomes hypoxemic severely with exertion. She is still maintained on high flow nasal cannula with a saturation approximately 94% on 65% FiO2 nasal cannula. Patient will need to improve substantially to be able to be discharged to a rehab facility or LTAC. 06/17/2020 Patient seems to be doing bit worse today and has gradually increasing oxygen requirements over the past few days. She is likely beyond the active viral infection phase of the disease and is now on the inflammatory phase which can persist for multiple weeks. In light of this worsening, I have started her on ivermectin/doxycycline/vitamin supplements. 06/18/2020 Since patient was started on ivermectin protocol, she has seen a significant improvement in her breathing as well as her inflammatory labs. She is still nowhere near baseline and still feels quite poorly I believe she may be turning a corner and may actually improve enough to leave the hospital eventually. This will likely be several days from now if it occurs. D-dimer, ferritin, CRP are all significantly lower today. Right upper quadrant ultrasound did not show any acute findings but could not visualize the gallbladder specifically. Suspect gastritis versus stomach ulcer and patient was started on H2 christiano 06/19/2020 Patient still complaining of abdominal pain intermittently when she eats. Per chart, she has not had a bowel movement for the last 5 days. I discussed with nursing that we will give the patient oral Dulcolax, then rectal Dulcolax, then enema and that order if she does not have a bowel movement at each of the stages. She could also have a developing gastric ulcer or gastritis as I mentioned previously no change to H2 christiano to Protonix IV. We can get an H. pylori stool antigen as well. 06/20/2020 Patient is being maintained on 15 L nasal cannula. She has multiple episodes of anxiety and air hunger throughout the day though her oxygen needs have somewhat leveled off to some degree. She stated today she wants to be DNR/DNI and the nurses have documented this discussion. Today, she got upset and was demanding to be sent home with home oxygen in hospital bed. I spoke with her at great length and told her this course of disease takes a very long time to reach recovery and that many other patients are going for the same thing as her. I added IV Dilaudid for air hunger and Breo inhaled steroid to treat lung inflamm ation. 06/21/2020 We are still trying to wean the patient from oxygen and positive pressure. She seems to be plateaued at 15 L with a saturation maintained at 91%. Her respiratory culture grew gram-negative magdalena that appeared to be a subtype of Moraxella though microbiology lab stated this could be normal gladis. Patient made herself DNR/DNI yesterday. She has not made any comments about being comfort measures today and she seems rather calm. I believe she is constipated and we ordered a KUB that did not show any acute abdominal findings. He states that when she eats her abdomen hurts. She has been placed on IV PPI and I have ordered H. pylori stool antigen though she has not had a bowel movement in several days. She is being given oral and rectal Dulcolax and I have ordered an enema to be given as well. I discussed all this with nursing. 06/22/2020 Patient had been refusing enema but then eventually agreed to it when I spoke with her today. Her abdomen is still painful and uncomfortable likely due to ongoing constipation. We will need to clear this for her to start eating and drinking normally again. Her respiratory status seems to be about the same. D- dimer is lower and white blood cell count is lower. We may need to start looking at LTAC options for her. Reason For Visit: ACUTE RESPIRATORY FAILURE BILATERAL PNUEMONIA,PUI Physical Exam Vital Signs: Temp Pulse Resp BP Pulse Ox 97.5 F 102 H 24 H 138/80 H 84 L 06/22/20 15:54 06/22/20 15:54 06/22/20 15:54 06/22/20 15:54 06/22/20 15:54 Intake & Output 06/21/20 06/22/20 06/23/20 06:59 06:59 06:59 Intake Total 250 450 400 Output Total 500 200 Balance 250 -50 200 Weight 66 kg 67.7 kg 67.7 kg Exam: General appearance: PRESENT: no acute distress, well-developed, well-nourished, ill-appearing elderly white female, appears, not in any respiratory distress Head exam: PRESENT: atraumatic, normocephalic Eye exam: PRESENT: conjunctiva pink. ABSENT: scleral icterus Mouth exam: PRESENT: moist Respiratory exam: PRESENT: CTA B ABSENT: rales, rhonchi Cardiovascular exam: PRESENT: RRR. ABSENT: diastolic murmur, rubs, systolic murmur GI/Abdominal exam: PRESENT: normal bowel sounds, soft. ABSENT: distended, guarding, mass, organolmegaly, rebound, tenderness Neurological exam: PRESENT: alert, awake, oriented to person, oriented to place, oriented to time, oriented to situation Psychiatric exam: PRESENT: appropriate affect, normal mood Skin exam: PRESENT: dry, intact, warm Results Laboratory Results: 06/22/20 07:36 06/22/20 07:36 06/22/20 06/22/20 07:36 07:36 WBC 8.8 RBC 4.63 Hgb 14.0 Hct 40.5 MCV 87 MCH 30.2 MCHC 34.6 RDW 19.9 H Plt Count 112 L Seg Neutrophils % Not Reportable Sodium 133.3 L Potassium 4.5 Chloride 97 L Carbon Dioxide 31 H Anion Gap 5 BUN 40 H Creatinine 0.71 Est GFR ( Amer) > 60 Glucose 109 Calcium 8.5 06/04/20 20:55 Troponin I < 0.012 NT-Pro-B Natriuret Pep 477 H Impressions: Chest X-Ray 06/04/20 22:15 IMPRESSION: Apparent developing bilateral lower lung interstitial opacities worrisome for pneumonia and differential diagnosis would include viral infections. Abdomen Ultrasound 06/18/20 00:00 IMPRESSION: 1. Unable to visualize the gallbladder. 2. Increased echogenicity of the renal parenchyma which could indicate chronic medical renal disease. There is no hydronephrosis. KUB X-Ray 06/21/20 00:00 IMPRESSION: NO RADIOGRAPHIC EVIDENCE FOR ACUTE ABDOMINAL DISEASE. Assessment and Plan - Diagnosis (1) Pneumonia due to COVID-19 virus Is this a current diagnosis for this admission?: Yes (2) Acute respiratory failure with hypoxia Is this a current diagnosis for this admission?: Yes (3) Bilateral pneumonia Qualifiers: Pneumonia type: due to unspecified organism Lung location: lower lobe of lung Qualified Code(s): J18.9 - Pneumonia, unspecified organism Is this a current diagnosis for this admission?: Yes (4) Anxiety and depression Is this a current diagnosis for this admission?: Yes (5) History of DVT (deep vein thrombosis) Is this a current diagnosis for this admission?: Yes (6) Metastatic lung cancer (metastasis from lung to other site) Qualifiers: Laterality: unspecified laterality Qualified Code(s): C34.90 - Malignant neoplasm of unspecified part of unspecified bronchus or lung Is this a current diagnosis for this admission?: Yes (7) Person under investigation for COVID-19 Is this a current diagnosis for this admission?: Yes (8) Stage 4 lung cancer Qualifiers: Laterality: unspecified laterality Qualified Code(s): C34.90 - Malignant neoplasm of unspecified part of unspecified bronchus or lung Is this a current diagnosis for this admission?: Yes (9) Thrombocytopenia Is this a current diagnosis for this admission?: Yes - Plan Summary Summary: (1) Pneumonia due to COVID-19 virus Per Previous Physician: "s/p 5 days of Remdesivir s/p covalesent plasma Dexamethasone day 10 Received 5 days of Vanc Cefepime initially as well. Unfortunately, patient's stage IV metastatic lung cancer and elderly age are poor prognostic indicators for patient's outcome. We will continue to support and wean off oxygen as tolerated" Wean oxygen as able, extremely slow recovery, rising oxygen requirements intermittently Started ivermectin/doxycycline/vitamin supplements on 06/17 for worsening oxygen requirements, significant improvement in inflammatory labs and clinically Gradually weaning positive pressure medication supplementation (2) Acute respiratory failure with hypoxia Per Previous Physician: "Due to COVID-19. Oxygenation is adequate on HFNC 100%/50 L. SPO2 seems to be in the high 90s. We will attempt to wean FiO2 down to 80% if tolerated with goal SPO2 above 90% and above." Continue supplemental oxygen -ativan and dilaudid IV prn for severe anxiety and air hunger (3) Stage 4 lung cancer Qualifiers: Laterality: unspecified laterality Qualified Code(s): C34.90 - Malignant neoplasm of unspecified part of unspecified bronchus or lung Is this a current diagnosis for this admission?: Yes Plan: Per Previous Physician: "Metastatic lung cancer with metastasis to liver and bone. Follows with oncologist in [place] Dr. Viera. Last chemo was 3 weeks prior to admission. Continue pain regimen for treatment of cancer related pain Bowel regimen" In remission per patient (4) History of DVT (deep vein thrombosis) Is this a current diagnosis for this admission?: Yes Plan: Per Previous Physician: "Upper extremity DVT due to Port-A-Cath. Continue therapeutic Lovenox. On Eliquis at home. DOC2RN order in place on not holding Lovenox doses w/o notifying physician." Do not stop Lovenox unless platelets fall below 50 or active significant bleeding (5) Thrombocytopenia Is this a current diagnosis for this admission?: Yes (6) Anxiety and depression Is this a current diagnosis for this admission?: Yes (7) constipation Oral and rectal Dulcolax, enema Patient initially refusing enema then agreed to it on 06/22 - Time Time Spent with patient: 35 or more minutes Medications reviewed and adjusted accordingly: Yes Anticipated Discharge Disposition: Intermediate Care Facility Anticipated Discharge Timeframe: within 72 hours - Inpatient Certification Based on my medical assessment, after consideration of the patient's comorbidities, presenting symptoms, or acuity I expect that the services needed warrant INPATIENT care.: Yes I certify that my determination is in accordance with my understanding of Medicare's requirements for reasonable and necessary INPATIENT services [42 CFR 412.3e].: Yes Medical Necessity: Significant Comorbidiites Make Outpatient Treatment Too Risky, Need Close Monitoring Due to Risk of Patient Decompensation, Need for Nebulizer Therapy and Monitoring of Response, Risk of Complication if Not Cared For in Hospital, Risk of Diagnosis Which Will Require Inpatient Eval/Care/Monitoring
[2020-06-23] MEDS: ALPRAZOLAM 0.5 MG TABLET PO SCH ×3 (05:33→21:34)
[2020-06-23] MEDS: HYDROMORPHONE HCL INJ/PF 2 MG/ML AMPULE IV PRN ×3 (05:33→22:00)
[2020-06-23] MEDS: ZINC SULFATE 220 MG CAPSULE PO SCH (10:34)
[2020-06-23] MEDS: ENOXAPARIN SODIUM INJ 80 MG/0.8 ML DISP.SYRIN SUBCUT SCH ×2 (10:34→21:34)
[2020-06-23] MEDS: CHOLECALCIFEROL (D3) 1,000 UNIT (25 MCG) TABLET PO SCH ×2 (10:34→11:31)
[2020-06-23] MEDS: ASCORBIC ACID 500 MG TABLET PO SCH ×3 (10:35→17:32)
[2020-06-23] MEDS: DOCUSATE SODIUM 100 MG CAPSULE PO SCH ×3 (10:35→17:31)
[2020-06-23] MEDS: DEXAMETHASONE SOD PHOSPHATE INJ 4 MG/1 ML VIAL IV SCH ×2 (10:35→21:34)
[2020-06-23] MEDS: ESCITALOPRAM OXALATE 10 MG TABLET PO SCH ×2 (10:35→11:30)
[2020-06-23] MEDS: FLUTICASONE/VILANTEROL 100-25 MCG/DOSE IH SCH ×2 (10:53→11:30)
[2020-06-23] MEDS: AMLODIPINE BESYLATE 5 MG TABLET PO SCH (11:19)
[2020-06-23] MEDS: LORAZEPAM INJ 2 MG/1 ML VIAL IV PRN ×2 (11:29→20:13)
[2020-06-23] MEDS: DOXYCYCLINE HYCLATE 100 MG in DEXTROSE 5%-WATER 250 ML IV SCH (12:33)
--- NOTE | 2020-06-23 16:09 | PDOC PROGRESS REPORT ---
Subjective Date:: 06/23/20 Subjective:: No adverse events overnight. Patient remains on 15 L on the nonrebreather, oxyg en saturations in the low 90s. She was supposed to have gotten an enema yesterday but I do not know if that was therapeutic for her or not. She still not eating. Reason For Visit: ACUTE RESPIRATORY FAILURE BILATERAL PNUEMONIA,PUI Physical Exam Vital Signs: Temp Pulse Resp BP Pulse Ox 97.5 F 96 20 96/68 L 97 06/23/20 11:48 06/23/20 11:48 06/23/20 11:48 06/23/20 11:48 06/23/20 11:48 Intake & Output 06/22/20 06/23/20 06/24/20 06:59 06:59 06:59 Intake Total 450 550 250 Output Total 500 1200 Balance -50 -650 250 Weight 67.7 kg 67.5 kg General appearance: PRESENT: no acute distress, well-developed, well-nourished, ill-appearing elderly white female, looks fatigued Head exam: PRESENT: atraumatic, normocephalic Eye exam: PRESENT: conjunctiva pink. ABSENT: scleral icterus Respiratory exam: PRESENT: CTA B ABSENT: rales, rhonchi Cardiovascular exam: PRESENT: RRR. ABSENT: diastolic murmur, rubs, systolic murmur GI/Abdominal exam: PRESENT: normal bowel sounds, soft. ABSENT: distended, guarding, mass, organolmegaly, rebound, tenderness Neurological exam: PRESENT: awake, oriented to person, oriented to place Psychiatric exam: PRESENT: appropriate affect, normal mood Skin exam: PRESENT: dry, intact, warm Results Laboratory Results: 06/22/20 07:36 06/22/20 07:36 06/23/20 06/23/20 05:38 05:38 Ferritin 718.00 H C-Reactive Protein 15.4 H 06/04/20 20:55 Troponin I < 0.012 NT-Pro-B Natriuret Pep 477 H Impressions: Chest X-Ray 06/04/20 22:15 IMPRESSION: Apparent developing bilateral lower lung interstitial opacities worrisome for pneumonia and differential diagnosis would include viral infections. Abdomen Ultrasound 06/18/20 00:00 IMPRESSION: 1. Unable to visualize the gallbladder. 2. Increased echogenicity of the renal parenchyma which could indicate chronic medical renal disease. There is no hydronephrosis. KUB X-Ray 06/21/20 00:00 IMPRESSION: NO RADIOGRAPHIC EVIDENCE FOR ACUTE ABDOMINAL DISEASE. Assessment and Plan - Diagnosis (1) Acute respiratory failure with hypoxia Is this a current diagnosis for this admission?: Yes (2) Person under investigation for COVID-19 Is this a current diagnosis for this admission?: Yes (3) Bilateral pneumonia Qualifiers: Pneumonia type: due to unspecified organism Lung location: lower lobe of lung Qualified Code(s): J18.9 - Pneumonia, unspecified organism Is this a current diagnosis for this admission?: Yes (4) Metastatic lung cancer (metastasis from lung to other site) Qualifiers: Laterality: unspecified laterality Qualified Code(s): C34.90 - Malignant neoplasm of unspecified part of unspecified bronchus or lung Is this a current diagnosis for this admission?: Yes (5) History of DVT (deep vein thrombosis) Is this a current diagnosis for this admission?: Yes - Plan Summary Summary: She continues on treatments for COVID-19. She is completed ivermectin. She still on some steroids. She continues on doxycycline and vitamin supplementation. Currently on nonrebreather at 15 L. We will continue to try to wean this as tolerated, but right now she will likely not tolerate. She is not eating or drinking much of anything. She is a DNR. I am concerned that this lady has a very poor prognosis. She is taking a long time to recover from this if she makes a recovery at all. If she continues to have a high oxygen requirement, we may have to see if we can get her into an LTAC. - Time Time Spent with patient: 15-24 minutes Anticipated Discharge Disposition: LTAC Anticipated Discharge Timeframe: Unknown
[2020-06-24] MEDS: LORAZEPAM INJ 2 MG/1 ML VIAL IV PRN ×4 (03:18→23:54)
[2020-06-24] MEDS: ALPRAZOLAM 0.5 MG TABLET PO SCH ×3 (05:42→21:05)
[2020-06-24] MEDS: HYDROMORPHONE HCL INJ/PF 2 MG/ML AMPULE IV PRN ×4 (07:24→20:32)
[2020-06-24] MEDS: FLUTICASONE/VILANTEROL 100-25 MCG/DOSE IH SCH (11:25)
[2020-06-24] MEDS: DOCUSATE SODIUM 100 MG CAPSULE PO SCH ×2 (11:26→18:46)
[2020-06-24] MEDS: ESCITALOPRAM OXALATE 10 MG TABLET PO SCH (11:26)
[2020-06-24] MEDS: ASCORBIC ACID 500 MG TABLET PO SCH ×2 (11:27→18:46)
[2020-06-24] MEDS: CHOLECALCIFEROL (D3) 1,000 UNIT (25 MCG) TABLET PO SCH (11:27)
[2020-06-24] MEDS: AMLODIPINE BESYLATE 5 MG TABLET PO SCH (11:27)
[2020-06-24] MEDS: ZINC SULFATE 220 MG CAPSULE PO SCH (11:28)
[2020-06-24] MEDS: METHYLPREDNISOLONE INJ 40 MG/1 ML SDV IV SCH ×2 (11:30→21:05)
[2020-06-24] MEDS: ENOXAPARIN SODIUM INJ 80 MG/0.8 ML DISP.SYRIN SUBCUT SCH ×2 (11:34→21:05)
--- NOTE | 2020-06-24 14:33 | PDOC PROGRESS REPORT ---
Subjective Date:: 06/24/20 Subjective:: No adverse events overnight. Patient remains on 15 L on the nonrebreather, oxyg en saturations in the low 90s. Still not eating. Saturations were really low on nonrebreather today, so we put her on CPAP 900% FiO2 and her SPO2 came up into the low 90s. She primarily was not taking very deep breaths and I think this was the biggest problem. Reason For Visit: ACUTE RESPIRATORY FAILURE BILATERAL PNUEMONIA,PUI Physical Exam Vital Signs: Temp Pulse Resp BP Pulse Ox 97.7 F 112 H 14 121/75 95 06/24/20 12:08 06/24/20 12:08 06/24/20 13:16 06/24/20 12:08 06/24/20 13:16 Intake & Output 06/23/20 06/24/20 06/25/20 06:59 06:59 06:59 Intake Total 550 250 Output Total 1200 225 Balance -650 25 Weight 67.5 kg 66.4 kg General appearance: PRESENT: Mild distress, well-developed, well-nourished, ill- appearing elderly white female, looks fatigued Head exam: PRESENT: atraumatic, normocephalic Eye exam: PRESENT: conjunctiva pink. ABSENT: scleral icterus Respiratory exam: PRESENT: CTA B ABSENT: rales, rhonchi Cardiovascular exam: PRESENT: RRR. ABSENT: diastolic murmur, rubs, systolic murmur GI/Abdominal exam: PRESENT: normal bowel sounds, soft. ABSENT: distended, guarding, mass, organolmegaly, rebound, tenderness Neurological exam: PRESENT: awake, oriented to person, oriented to place Psychiatric exam: PRESENT: appropriate affect, normal mood Skin exam: PRESENT: dry, intact, warm Results Laboratory Results: 06/22/20 07:36 06/22/20 07:36 06/04/20 20:55 Troponin I < 0.012 NT-Pro-B Natriuret Pep 477 H Impressions: Chest X-Ray 06/04/20 22:15 IMPRESSION: Apparent developing bilateral lower lung interstitial opacities worrisome for pneumonia and differential diagnosis would include viral infections. Abdomen Ultrasound 06/18/20 00:00 IMPRESSION: 1. Unable to visualize the gallbladder. 2. Increased echogenicity of the renal parenchyma which could indicate chronic medical renal disease. There is no hydronephrosis. KUB X-Ray 06/21/20 00:00 IMPRESSION: NO RADIOGRAPHIC EVIDENCE FOR ACUTE ABDOMINAL DISEASE. Assessment and Plan - Diagnosis (1) Acute respiratory failure with hypoxia Is this a current diagnosis for this admission?: Yes (2) Person under investigation for COVID-19 Is this a current diagnosis for this admission?: Yes (3) Bilateral pneumonia Qualifiers: Pneumonia type: due to unspecified organism Lung location: lower lobe of lung Qualified Code(s): J18.9 - Pneumonia, unspecified organism Is this a current diagnosis for this admission?: Yes (4) Metastatic lung cancer (metastasis from lung to other site) Qualifiers: Laterality: unspecified laterality Qualified Code(s): C34.90 - Malignant neoplasm of unspecified part of unspecified bronchus or lung Is this a current diagnosis for this admission?: Yes (5) History of DVT (deep vein thrombosis) Is this a current diagnosis for this admission?: Yes - Plan Summary Summary: She continues on treatments for COVID-19. She is completed ivermectin. She still on some steroids. She continues on doxycycline and vitamin supplementation. Currently on CPAP of pressure of 10 mmHg on 100% FiO2. Steroids were increased today. Still not eating or drinking much of anything. Overall prognosis remains poor. - Time Time Spent with patient: 15-24 minutes Anticipated Discharge Disposition: Unknown Anticipated Discharge Timeframe: Unknown
[2020-06-24] MEDS: NORMAL SALINE 1000 ML 1,000 ML IV PRN (16:30)
[2020-06-25] MEDS: HYDROMORPHONE HCL INJ/PF 2 MG/ML AMPULE IV PRN ×6 (02:23→23:30)
[2020-06-25] MEDS: ALPRAZOLAM 0.5 MG TABLET PO SCH ×3 (05:36→22:16)
[2020-06-25] MEDS: NORMAL SALINE 1000 ML 1,000 ML IV PRN ×2 (05:37→19:51)
[2020-06-25] MEDS: LORAZEPAM INJ 2 MG/1 ML VIAL IV PRN ×3 (07:36→22:21)
[2020-06-25] MEDS: AMLODIPINE BESYLATE 5 MG TABLET PO SCH (10:43)
[2020-06-25] MEDS: CHOLECALCIFEROL (D3) 1,000 UNIT (25 MCG) TABLET PO SCH (10:43)
[2020-06-25] MEDS: ESCITALOPRAM OXALATE 10 MG TABLET PO SCH (10:43)
[2020-06-25] MEDS: ASCORBIC ACID 500 MG TABLET PO SCH ×2 (10:43→18:39)
[2020-06-25] MEDS: FLUTICASONE/VILANTEROL 100-25 MCG/DOSE IH SCH (10:43)
[2020-06-25] MEDS: DOCUSATE SODIUM 100 MG CAPSULE PO SCH ×2 (10:43→18:39)
[2020-06-25] MEDS: ZINC SULFATE 220 MG CAPSULE PO SCH (10:44)
[2020-06-25] MEDS: ENOXAPARIN SODIUM INJ 80 MG/0.8 ML DISP.SYRIN SUBCUT SCH ×2 (12:35→22:21)
[2020-06-25] MEDS: METHYLPREDNISOLONE INJ 40 MG/1 ML SDV IV SCH ×2 (12:35→22:21)
--- NOTE | 2020-06-25 14:28 | PDOC PROGRESS REPORT ---
Subjective Date:: 06/25/20 Subjective:: No adverse events overnight. She has been sleeping comfortably on CPAP. She wa s at 100% FiO2 when I came in the room and her saturations were in the upper 90s up to 100% SPO2. I titrated her oxygen down to 50% and her oxygen saturations were still in the upper 90s. Reason For Visit: ACUTE RESPIRATORY FAILURE BILATERAL PNUEMONIA,PUI Physical Exam Vital Signs: Temp Pulse Resp BP Pulse Ox 97.1 F 103 H 26 H 115/76 97 06/25/20 08:30 06/25/20 08:30 06/25/20 12:00 06/25/20 08:30 06/25/20 12:00 Intake & Output 06/24/20 06/25/20 06/26/20 06:59 06:59 06:59 Intake Total 250 984 Output Total 225 25 Balance 25 959 Weight 66.4 kg 63.5 kg General appearance: PRESENT: No apparent distress, well-developed, well- nourished, ill-appearing elderly white female Head exam: PRESENT: atraumatic, normocephalic Eye exam: PRESENT: conjunctiva pink. ABSENT: scleral icterus Respiratory exam: PRESENT: CTA B ABSENT: rales, rhonchi Cardiovascular exam: PRESENT: RRR. ABSENT: diastolic murmur, rubs, systolic murmur GI/Abdominal exam: PRESENT: normal bowel sounds, soft. ABSENT: distended, guarding, mass, organolmegaly, rebound, tenderness Neurological exam: PRESENT: awake, oriented to person, oriented to place Psychiatric exam: PRESENT: Flat affect Skin exam: PRESENT: dry, intact, warm Results Laboratory Results: 06/22/20 07:36 06/22/20 07:36 06/04/20 20:55 Troponin I < 0.012 NT-Pro-B Natriuret Pep 477 H Impressions: Chest X-Ray 06/04/20 22:15 IMPRESSION: Apparent developing bilateral lower lung interstitial opacities worrisome for pneumonia and differential diagnosis would include viral infections. Abdomen Ultrasound 06/18/20 00:00 IMPRESSION: 1. Unable to visualize the gallbladder. 2. Increased echogenicity of the renal parenchyma which could indicate chronic medical renal disease. There is no hydronephrosis. KUB X-Ray 06/21/20 00:00 IMPRESSION: NO RADIOGRAPHIC EVIDENCE FOR ACUTE ABDOMINAL DISEASE. Assessment and Plan - Diagnosis (1) Acute respiratory failure with hypoxia Is this a current diagnosis for this admission?: Yes (2) Person under investigation for COVID-19 Is this a current diagnosis for this admission?: Yes (3) Bilateral pneumonia Qualifiers: Pneumonia type: due to unspecified organism Lung location: lower lobe of lung Qualified Code(s): J18.9 - Pneumonia, unspecified organism Is this a current diagnosis for this admission?: Yes (4) Metastatic lung cancer (metastasis from lung to other site) Qualifiers: Laterality: unspecified laterality Qualified Code(s): C34.90 - Malignant neoplasm of unspecified part of unspecified bronchus or lung Is this a current diagnosis for this admission?: Yes (5) History of DVT (deep vein thrombosis) Is this a current diagnosis for this admission?: Yes - Plan Summary Summary: She continues on treatments for COVID-19. She is completed ivermectin. She still on some steroids. She continues on doxycycline and vitamin supplementation. Currently on CPAP of pressure of 10 mmHg on 50% FiO2. Still not eating or drinking much of anything. Overall prognosis remains poor, but at least today her oxygenation seems to have improved somewhat. - Time Time Spent with patient: 15-24 minutes Anticipated Discharge Disposition: Unknown Anticipated Discharge Timeframe: Unknown
[2020-06-26] MEDS: HYDROMORPHONE HCL INJ/PF 2 MG/ML AMPULE IV PRN ×6 (01:37→20:20)
[2020-06-26] MEDS ORDERED: LORAZEPAM INJ 2 MG/1 ML VIAL ONE (03:16)
[2020-06-26] MEDS ORDERED: LORAZEPAM INJ 2 MG/1 ML VIAL IV ONE ×2 (03:30→10:30)
[2020-06-26] MEDS: ALPRAZOLAM 0.5 MG TABLET PO SCH ×2 (05:33→15:15)
[2020-06-26] MEDS: LORAZEPAM INJ 2 MG/1 ML VIAL IV PRN ×3 (09:00→22:40)
[2020-06-26] MEDS: ENOXAPARIN SODIUM INJ 80 MG/0.8 ML DISP.SYRIN SUBCUT SCH ×2 (09:43→22:39)
[2020-06-26] MEDS: METHYLPREDNISOLONE INJ 125 MG/2 ML SDV IV SCH ×2 (09:43→22:40)
[2020-06-26] MEDS: NORMAL SALINE 1000 ML 1,000 ML IV PRN ×2 (09:44→22:39)
[2020-06-26] MEDS ORDERED: METHYLPREDNISOLONE INJ 40 MG/1 ML SDV IV SCH (10:00)
[2020-06-26] MEDS: FLUTICASONE/VILANTEROL 100-25 MCG/DOSE IH SCH (10:36)
[2020-06-26] MEDS: AMLODIPINE BESYLATE 5 MG TABLET PO SCH (10:36)
[2020-06-26] MEDS: ESCITALOPRAM OXALATE 10 MG TABLET PO SCH (10:36)
[2020-06-26] MEDS: DOCUSATE SODIUM 100 MG CAPSULE PO SCH ×2 (10:36→17:22)
[2020-06-26] MEDS: ASCORBIC ACID 500 MG TABLET PO SCH ×2 (10:37→17:22)
[2020-06-26] MEDS: ZINC SULFATE 220 MG CAPSULE PO SCH (10:37)
[2020-06-26] MEDS: CHOLECALCIFEROL (D3) 1,000 UNIT (25 MCG) TABLET PO SCH (10:37)
[2020-06-26 10:48] LABS: HEMATOCRIT 33.6 % (36.0-47.0); HEMOGLOBIN 11.7 g/dL (12.0-15.5); MEAN CORPUSCULAR HEMOGLOBIN 30.9 pg (27.0-33.4); MEAN CORPUSCULAR HGB CONC 34.8 g/dL (32.0-36.0); MEAN CORPUSCULAR VOLUME 89 fl (80-97); RED BLOOD COUNT 3.79 10^6/uL (3.72-5.28); RED CELL DISTRIBUTION WIDTH 20.6 % (11.5-14.0); WHITE BLOOD COUNT 9.2 10^3/uL (4.0-10.5)
[2020-06-26 11:05] LABS: BLOOD UREA NITROGEN 38 mg/dL (7-20); CALCIUM 8.1 mg/dL (8.4-10.2); CARBON DIOXIDE 28 mmol/L (22-30); CHLORIDE 107 mmol/L (98-107); GLUCOSE 109 mg/dL (75-110); POTASSIUM 4.1 mmol/L (3.6-5.0)
[2020-06-26 11:08] LABS: ANION GAP 5 (5-19)
[2020-06-26 11:30] LABS: ABSOLUTE LYMPHOCYTES# (MANUAL) 0.6 10^3/uL (0.5-4.7); ABSOLUTE MONOCYTES # (MANUAL) 0.3 10^3/uL (0.1-1.4); BAND NEUTROPHILS % (MANUAL) 1 % (3-5); BASOPHILS % (MANUAL) 0 % (0-2); EOSINOPHILS % (MANUAL) 0 % (0-6); LYMPHOCYTES % (MANUAL) 7 % (13-45); MONOCYTES % (MANUAL) 3 % (3-13); SEGMENTED NEUTROPHILS % (MAN) 89 % (42-78); TOTAL CELLS COUNTED 100
[2020-06-26 11:35] LABS: ANISOCYTOSIS 2+; OVALOCYTES 2+; PLATELET CLUMPS PRESENT; PLATELET COMMENT DECREASED
[2020-06-26 11:36] LABS: POIKILOCYTOSIS 2+
[2020-06-26 11:39] LABS: PLATELET LARGE PRESENT
[2020-06-26 11:49] LABS: PLATELET COUNT 114 10^3/uL (150-450)
[2020-06-26] MEDS ORDERED: ZIPRASIDONE MESYLATE INJ/PF 20 MG SDV IM PRN (12:40)
--- NOTE | 2020-06-26 14:35 | PDOC PROGRESS REPORT ---
Subjective Date:: 06/26/20 Subjective:: She was very agitated this morning. She is previously responded to Ativan or Di laudid, but when she got it this morning she was still very agitated and anxious and crying out for her mother. She was not ventilating as effectively as she does when she is asleep and comfortable. We wound up having to put her in soft limb restraints for her safety because she kept trying to pull her mask off. Reason For Visit: ACUTE RESPIRATORY FAILURE BILATERAL PNUEMONIA,PUI Physical Exam Vital Signs: Temp Pulse Resp BP Pulse Ox 97.4 F 105 H 32 H 132/59 H 94 06/26/20 12:44 06/26/20 12:44 06/26/20 12:44 06/26/20 12:44 06/26/20 12:44 Intake & Output 06/25/20 06/26/20 06/27/20 06:59 06:59 06:59 Intake Total 984 1000 1000 Output Total 25 1800 Balance 959 -800 1000 Weight 63.5 kg 64.8 kg General appearance: PRESENT: Moderate distress, well-developed, well-nourished, ill-appearing elderly white female Head exam: PRESENT: atraumatic, normocephalic Eye exam: PRESENT: conjunctiva pink. ABSENT: scleral icterus Respiratory exam: PRESENT: CTA B ABSENT: rales, rhonchi Cardiovascular exam: PRESENT: RRR. ABSENT: diastolic murmur, rubs, systolic murmur GI/Abdominal exam: PRESENT: normal bowel sounds, soft. ABSENT: distended, guarding, mass, organolmegaly, rebound, tenderness Neurological exam: PRESENT: awake, oriented to person, oriented to place Psychiatric exam: PRESENT: Agitated, anxious Skin exam: PRESENT: dry, intact, warm Results Laboratory Results: 06/26/20 09:30 06/26/20 09:30 06/26/20 06/26/20 09:30 09:30 WBC 9.2 RBC 3.79 Hgb 11.7 L Hct 33.6 L MCV 89 MCH 30.9 MCHC 34.8 RDW 20.6 H Plt Count 114 L Seg Neutrophils % Not Reportable Sodium 139.2 Potassium 4.1 Chloride 107 Carbon Dioxide 28 Anion Gap 5 BUN 38 H Creatinine 0.47 L Est GFR ( Amer) > 60 Glucose 109 Calcium 8.1 L 06/04/20 20:55 Troponin I < 0.012 NT-Pro-B Natriuret Pep 477 H Impressions: Chest X-Ray 06/04/20 22:15 IMPRESSION: Apparent developing bilateral lower lung interstitial opacities worrisome for pneumonia and differential diagnosis would include viral infections. Abdomen Ultrasound 06/18/20 00:00 IMPRESSION: 1. Unable to visualize the gallbladder. 2. Increased echogenicity of the renal parenchyma which could indicate chronic medical renal disease. There is no hydronephrosis. KUB X-Ray 06/21/20 00:00 IMPRESSION: NO RADIOGRAPHIC EVIDENCE FOR ACUTE ABDOMINAL DISEASE. Assessment and Plan - Diagnosis (1) Acute respiratory failure with hypoxia Is this a current diagnosis for this admission?: Yes (2) Person under investigation for COVID-19 Is this a current diagnosis for this admission?: Yes (3) Bilateral pneumonia Qualifiers: Pneumonia type: due to unspecified organism Lung location: lower lobe of lung Qualified Code(s): J18.9 - Pneumonia, unspecified organism Is this a current diagnosis for this admission?: Yes (4) Metastatic lung cancer (metastasis from lung to other site) Qualifiers: Laterality: unspecified laterality Qualified Code(s): C34.90 - Malignant neoplasm of unspecified part of unspecified bronchus or lung Is this a current diagnosis for this admission?: Yes (5) History of DVT (deep vein thrombosis) Is this a current diagnosis for this admission?: Yes - Plan Summary Summary: She continues on treatments for COVID-19. She is completed ivermectin. She continues on steroids. She continues on doxycycline and vitamin supplementat ion. Currently on CPAP of pressure of 10 mmHg, had to temporarily increase her FiO2 because of her ineffective breathing pattern during agitation. Still not eating or drinking much of anything. Overall prognosis remains poor. I had to add some Geodon today to try to help control her agitation. - Time Time Spent with patient: 15-24 minutes Anticipated Discharge Disposition: Unknown Anticipated Discharge Timeframe: Unknown
[2020-06-27] MEDS: HYDROMORPHONE HCL INJ/PF 2 MG/ML AMPULE IV PRN ×3 (00:46→09:00)
[2020-06-27] MEDS: LORAZEPAM INJ 2 MG/1 ML VIAL IV PRN ×2 (03:16→15:53)
[2020-06-27 07:15] LABS: HEMATOCRIT 28.8 % (36.0-47.0); HEMOGLOBIN 9.9 g/dL (12.0-15.5); MEAN CORPUSCULAR HEMOGLOBIN 30.4 pg (27.0-33.4); MEAN CORPUSCULAR HGB CONC 34.4 g/dL (32.0-36.0); MEAN CORPUSCULAR VOLUME 88 fl (80-97); RED BLOOD COUNT 3.26 10^6/uL (3.72-5.28); RED CELL DISTRIBUTION WIDTH 20.6 % (11.5-14.0); WHITE BLOOD COUNT 6.5 10^3/uL (4.0-10.5)
[2020-06-27 07:57] LABS: ANION GAP 7 (5-19); BLOOD UREA NITROGEN 27 mg/dL (7-20); CALCIUM 7.7 mg/dL (8.4-10.2); CARBON DIOXIDE 29 mmol/L (22-30); CHLORIDE 106 mmol/L (98-107); GLUCOSE 112 mg/dL (75-110)
[2020-06-27 08:04] LABS: POTASSIUM 3.1 mmol/L (3.6-5.0)
[2020-06-27 08:53] LABS: ABSOLUTE LYMPHOCYTES# (MANUAL) 0.1 10^3/uL (0.5-4.7); BASOPHILS % (MANUAL) 0 % (0-2); EOSINOPHILS % (MANUAL) 1 % (0-6); LYMPHOCYTES % (MANUAL) 2 % (13-45); MONOCYTES % (MANUAL) 0 % (3-13); SEGMENTED NEUTROPHILS % (MAN) 97 % (42-78); TOTAL CELLS COUNTED 100
[2020-06-27 08:55] LABS: ANISOCYTOSIS 2+; PLATELET COMMENT DECREASED; POLYCHROMASIA 1+
[2020-06-27 08:57] LABS: OVALOCYTES 1+; POIKILOCYTOSIS 1+; TEAR DROP CELLS 1+
[2020-06-27 08:59] LABS: PLATELET COUNT 86 10^3/uL (150-450)
--- NOTE | 2020-06-27 14:24 | PDOC PROGRESS REPORT ---
Subjective Date:: 06/27/20 Subjective:: She has remained anxious and agitated overnight. Her saturations have been on t he mid 90s on her current level of oxygen support on CPAP, currently 10 of PEEP and 100% FiO2. She continues in soft limb restraints keep her from pulling the mask off. I had our conversation with her daughter over the phone today, and she wants to do comfort measures on this patient. She is the power of city attorney. She is a couple of hours away from here and would like for us to wait until she gets here before we initiate full comfort measures. Reason For Visit: ACUTE RESPIRATORY FAILURE BILATERAL PNUEMONIA,PUI Physical Exam Vital Signs: Temp Pulse Resp BP Pulse Ox 98.3 F 97 42 H 106/54 L 95 06/27/20 08:53 06/27/20 08:53 06/27/20 10:08 06/27/20 08:53 06/27/20 10:08 Intake & Output 06/26/20 06/27/20 06/28/20 06:59 06:59 06:59 Intake Total 1000 1969 Output Total 1800 1090 Balance -800 879 Weight 64.8 kg 64.5 kg General appearance: PRESENT: Moderate distress, well-developed, well-nourished, ill-appearing elderly white female Head exam: PRESENT: atraumatic, normocephalic Eye exam: PRESENT: conjunctiva pink. ABSENT: scleral icterus Respiratory exam: PRESENT: CTA B ABSENT: rales, rhonchi Cardiovascular exam: PRESENT: RRR. ABSENT: diastolic murmur, rubs, systolic murmur GI/Abdominal exam: PRESENT: normal bowel sounds, soft. ABSENT: distended, guarding, mass, organolmegaly, rebound, tenderness Neurological exam: PRESENT: awake, oriented to person Psychiatric exam: PRESENT: Agitated, anxious Skin exam: PRESENT: dry, intact, warm Results Laboratory Results: 06/27/20 06:50 06/27/20 06:50 06/27/20 06/27/20 06:50 06:50 WBC 6.5 RBC 3.26 L Hgb 9.9 L Hct 28.8 L MCV 88 MCH 30.4 MCHC 34.4 RDW 20.6 H Plt Count 86 L Seg Neutrophils % Not Reportable Sodium 141.6 Potassium 3.1 L D Chloride 106 Carbon Dioxide 29 Anion Gap 7 BUN 27 H Creatinine 0.45 L Est GFR ( Amer) > 60 Glucose 112 H Calcium 7.7 L 06/04/20 20:55 Troponin I < 0.012 NT-Pro-B Natriuret Pep 477 H Impressions: Chest X-Ray 06/04/20 22:15 IMPRESSION: Apparent developing bilateral lower lung interstitial opacities worrisome for pneumonia and differential diagnosis would include viral infections. Abdomen Ultrasound 06/18/20 00:00 IMPRESSION: 1. Unable to visualize the gallbladder. 2. Increased echogenicity of the renal parenchyma which could indicate chronic medical renal disease. There is no hydronephrosis. KUB X-Ray 06/21/20 00:00 IMPRESSION: NO RADIOGRAPHIC EVIDENCE FOR ACUTE ABDOMINAL DISEASE. Assessment and Plan - Diagnosis (1) Acute respiratory failure with hypoxia Is this a current diagnosis for this admission?: Yes (2) Person under investigation for COVID-19 Is this a current diagnosis for this admission?: Yes (3) Bilateral pneumonia Qualifiers: Pneumonia type: due to unspecified organism Lung location: lower lobe of lung Qualified Code(s): J18.9 - Pneumonia, unspecified organism Is this a current diagnosis for this admission?: Yes (4) Metastatic lung cancer (metastasis from lung to other site) Qualifiers: Laterality: unspecified laterality Qualified Code(s): C34.90 - Malignant neoplasm of unspecified part of unspecified bronchus or lung Is this a current diagnosis for this admission?: Yes (5) History of DVT (deep vein thrombosis) Is this a current diagnosis for this admission?: Yes - Plan Summary Summary: When her daughter gets here, we will likely be discontinuing her BiPAP and pursuing comfort measures. Daughter understands that when her BiPAP comes off she will likely not last very long. To help control her agitation and work of breathing a little bit better, we will start a very low-dose Dilaudid continuous infusion. When we remove her BiPAP mask later, we will likely have to increase the rate of the Dilaudid infusion to help with her work of breathing. I think that this is completely appropriate considering this patient's very poor prognosis. - Time Time Spent with patient: 25-34 minutes Anticipated Discharge Disposition: Comfort Anticipated Discharge Timeframe: Unknown
[2020-06-27] MEDS ORDERED: HYDROMORPHONE HCL 30 MG/60 ML RTUINJ IV PRN (15:22)
[2020-06-27] MEDS ORDERED: LORAZEPAM INJ 2 MG/1 ML VIAL IV PRN (16:08)
[2020-06-27] MEDS ORDERED: HYDROMORPHONE HCL INJ/PF 2 MG/ML AMPULE IV PRN (16:08)
--- NOTE | 2020-06-27 18:00 | Death Summary ---
Summary Date : 06/27/20 Time of :: 17:55 Autopsy: No Resuscitation Status: Comfort Measures Only - Final Diagnosis (1) Acute respiratory failure with hypoxia Is this a current diagnosis for this admission?: Yes (2) Person under investigation for COVID-19 Is this a current diagnosis for this admission?: Yes (3) Bilateral pneumonia Is this a current diagnosis for this admission?: Yes (4) Metastatic lung cancer (metastasis from lung to other site) Is this a current diagnosis for this admission?: Yes (5) History of DVT (deep vein thrombosis) Is this a current diagnosis for this admission?: Yes Hospital Course:: RADHA GAUTAM is a 69 year old female with a history 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 She has been on high-dose prednisone and is being weaned at this point, currently down to 40 mg a day. She was hoping to get wean down further off of steroids so she can restart chemo. She is also received 30 radiation treatments. Her oncologist is in [place], a Dr. Viera. She does not know the name of the chemo drugs she was on. She said she was in the hospital about a month ago with a pneumonia and has not been on chemo since then. Her was admitted to the hospital on 17 May with a stroke and was sent to [facility]. He has since been in acute rehab. She has been to that hospital every day and to acute rehab to visit him. She says that she has followed all the appropriate precautions. She said that she is always had some trouble breathing but she feels like it got worse the day after Thanks[place]. She says that she typically gets a little short of breath when she does something simple such as bathe, but it has gotten worse and now she is even short of breath at rest. She does not think she has been running a fever. She always has a little bit of a dry cough and it does not seem to be in much different than usual. She is not on oxygen at home. She came in here hypoxic and short of breath and had to be put on BiPAP. She got a dose of dexamethasone and some Rocephin and Zithromax. She has not been tested for coronavirus outside the hospital but the test was ordered while she was in the ER. She received a broad course of treatments. She received IV steroids, convalescent plasma, remdesivir, ivermectin, IV antibiotics, B vitamin complex, vitamin C, zinc, vitamin D3, and melatonin. She required a high level of noninvasive oxygen support, including nasal cannula, nonrebreather, high flow nasal cannula, and CPAP. She slowly declined and deteriorated over the course of her hospitalization and unfortunately could not overcome her illness. Today her family decided to make her comfort measures only. She at 1755 hrs.
[2020-06-27 19:47] VITALS: BP 139/103
== END 2020-06-27 21:23 | DRG 177 ==
LOC: ER 19:22 → EH 06-05 00:58 → 3W 06-05 05:46 → 3N 06-21 00:57
PROVIDERS: ADMIT Family Medicine; ATTEND Family Medicine
PROC: 5A09457 Assistance with Respiratory Ventilation, 24-96 Consecutive Hours, Continuous Positive Airway Pressure (ICD-10-PCS; 2020-06-04)
PROC: XW033E5 Introduction of Remdesivir Anti-infective into Peripheral Vein, Percutaneous Approach, New Technology Group 5 (ICD-10-PCS; principal; 2020-06-06)
PROC: XW14325 Transfusion of Convalescent Plasma (Nonautologous) into Central Vein, Percutaneous Approach, New Technology Group 5 (ICD-10-PCS; 2020-06-06)
DX: U07.1 COVID-19 (principal); J12.89 Other viral pneumonia; C79.51 Secondary malignant neoplasm of bone; J96.01 Acute respiratory failure with hypoxia; C34.90 Malignant neoplasm of unspecified part of unspecified bronchus or lung; C78.7 Secondary malignant neoplasm of liver and intrahepatic bile duct; D84.9 Immunodeficiency, unspecified; D69.59 Other secondary thrombocytopenia; Z87.891 Personal history of nicotine dependence; E78.5 Hyperlipidemia, unspecified; F41.9 Anxiety disorder, unspecified; F32.9 Major depressive disorder, single episode, unspecified; I10 Essential (primary) hypertension; Z79.01 Long term (current) use of anticoagulants; Z88.6 Allergy status to analgesic agent; Z88.0 Allergy status to penicillin; Z86.718 Personal history of other venous thrombosis and embolism; Z79.52 Long term (current) use of systemic steroids; Z51.5 Encounter for palliative care; Z79.899 Other long term (current) drug therapy; Z78.1 Physical restraint status
CPT/HCPCS: 36415; 36430; 70553; 71045; 74018; 76705; 80048; 80053; 80202; 81001; 82565; 82728; 82803; 83880; 84484; 85025; 85379; 85610; 85730; 86140; 86850; 86900; 86901; 87040; 87635; 87804; 93005; 93010; 93976; 94660; 96365; 96368; 96375; 99285; A9576; C9113; C9803; J0456; J0692; J0696; J1100; J1170; J1642; J1650; J2060; J2405; J2920; J2930; J3370; J3480; J3486; J3490; J7030; J7050; J7060; S0028

== ENCOUNTER → 2020-06-04 | Outpatient (CLI) | payer MEDICARE, OTHER ==
--- NOTE | 2020-06-04 10:03 | RADIOLOGY REPORT (SQ) ---
EXAM DESCRIPTION: MRI HEAD COMBO IMAGES COMPLETED DATE/TIME: 06/04/2020 9:11 am REASON FOR STUDY: LOCALIZED SWELLING, MASS AND LUMP, HEAD R22.0 LOCALIZED SWELLING, MASS AND LUMP, HEAD COMPARISON: MRI brain dated 01/13/2020 TECHNIQUE: Multiplanar imaging includes noncontrasted T1, T2, FLAIR, diffusion with ADC map and post gadolinium contrast T1 sequences. Images stored on PACS. CONTRAST TYPE AND DOSE: 10 mL Prohance. RENAL FUNCTION: Not indicated. ACR Type II contrast agent associated with few, if any, unconfounded cases of NSF LIMITATIONS: None. FINDINGS: ANATOMY: No anomalies. Normal vascular flow voids. Pituitary fossa normal. CSF SPACES: Normal in size and contour. No hemorrhage. CEREBRUM: Sulci and gyri normal in size and contour. Infrequent high-signal intensity lesions on STI R and T2 weighted sequences consistent with small vessel disease. . No evidence of hemorrhage, mass, or extraaxial fluid collection. No abnormal enhancement post contrast. POSTERIOR FOSSA: No signal alteration. No hemorrhage. No edema, masses, or mass effect. Internal alpa tory canals, cerebellopontine angles, mastoids normal. No enhancing lesions. No abnormal enhancement post contrast. DIFFUSION IMAGING: Negative for acute or subacute infarction. ORBITS: No masses. Globes normal. PARANASAL SINUSES: No fluid levels. Mucosa normal. OTHER: There is a 3.3 x 1.0 x 2.1 cm enhancing lesion arising off the left occipital bone. This coul d represent a subcutaneous metastasis or expansile he was coli seen. Correlation with CT for better bone assessment is recommended. IMPRESSION: 1. Enhancing 3.3 x 1.0 x 2.1 cm subcutaneous lesion or expansile bone lesion overlying t he left occipital bone. Recommend correlation with CT for better bone assessment. Findings are susp icious for metastatic disease. 2. No intracranial abnormal enhancement. There are mild small-vessel ischemic changes. EVIDENCE OF ACUTE STROKE: NO. TECHNICAL DOCUMENTATION: JOB ID: [id number] 2010 [email or web address]- All Rights Reserved Reading location - IP/workstation name: [email or web address]
== END ==
LOC: RAD 07:51
PROVIDERS: ATTEND Internal Medicine Hematology & Oncology
DX: R22.0 Localized swelling, mass and lump, head (principal)
CPT/HCPCS: 82565; 70553; A9576